=== PATIENT | female | born 1965 | race Caucasian/White ===

== ENCOUNTER 2019-11-18 13:25 | Outpatient (CLI) | payer OTHER, SELFPAY ==
[2019-11-18 14:13] LABS: Basophils # 0.1 10^3/uL (0.0-0.1); Basophils % 1.3 %; Eosinophils # 0.1 10^3/uL (0.0-0.8); Eosinophils % 1.4 %; Hematocrit 31.3 % (37.0-47.0); Hemoglobin 8.8 g/dL (11.5-15.3); Lymphocytes # 1.8 10^3/uL (0.8-4.8); Lymphocytes % 21.1 %; Mean Corpuscular HGB Conc 28.1 g/dL (30.0-36.0); Mean Corpuscular Hemoglobin 19.6 pg (28.0-34.0); Mean Corpuscular Volume 69.7 fL (81-99); Mean Platelet Volume 9.7 fL (7.4-10.4); Monocytes # 0.8 10^3/uL (0.2-0.9); Monocytes % 9.2 %; Neutrophils # 5.57 10^3/uL (1.8-7.7); Neutrophils % 66.6 %; Nucleated Red Blood Cells % 0 %; Platelet Count 324 10^3/cmm (130-400); Red Blood Count 4.49 10^6/uL (4.1-5.3); Red Cell Distribution Width 18.8 % (12.1-15.1); White Blood Count 8.4 10^3/uL (4.0-10.0)
--- NOTE | 2019-11-18 15:16 | ONC CON_ITS ---
Dr. John New Patient Note Patient: Sonya Barragan Unit #: [id number]: 1965 Dicatated By: Tera John M.D.Date of Visit: Nov 18, 2019 Onc MED New Patient/Consult Referring Physician: Henrik Stevens N.P. History of Present Illness: Ms. Sonya Barragan is a 54-year-old female with history of obesity, abdominal hernia, hemorrhoids was recently diagnosed with iron deficiency anemia, as per patient when she was at that time she was given oral iron for anemia which she could not tolerate due to indigestion, nausea vomiting, constipation abdominal cramps. But her anemia resolved and been never told until recently on October 16, 2019 when she went for routine 6 monthly follow-up with her PMD and routine lab work-up showed white blood count 8 hemoglobin 9.3 hematocrit 32.4, MCV 69, platelets 337,000 due to newly diagnosed anemia her PMD did anemia work-up which includes iron studies and B12/folic acid level and it came back ferritin was 8 iron saturation was 4%, iron 20, TIBC 460 consistent with iron deficiency but B12 was 645 and folic acid was 9.7. Patient was diagnosed with iron deficiency anemia as patient has intolerance to oral iron she was referred to hematology clinic for further evaluation treatment. As per patient she never had colonoscopy done but last year when she was admitted to hospital with intestinal obstruction due to hernia, she was seen by surgeon Dr. Guerra, at that time due to extensive hernia, colonoscopy was not considered and was suggested to send her to [place] for colonoscopy. Patient never required blood transfusion. Patient denies any melena or hematochezia but has history of hemorrhoids, with off and on bleeding last time was about a month ago. She has history of heavy menstrual periods and achieved menopause last year, patient is taking black cohosh as hormone supplement.. Patient denies any history of vaginal bleeding patient denies any history of hematuria denies any hemoptysis or hematemesis or nosebleed or gum bleed patient denies any history of peptic ulcer disease patient denies any history of gastric surgery. Patient denies any history of night sweats or weight loss or peripheral lymphadenopathy, patient denies any history of jaundice. Patient denies any history of palpitation or shortness of breath, patient has morbid obesity, so not very active physically. Past Medical History: Ms. Barragan's medical history consists of hyperlipidemia and hypertension. Past Surgical History: Ms. Barragan's surgical/procedural history consists of breast biopsy, caesarean section, and hernia repair. Medications: Black Cohosh 1 Tablet Oral daily, Docusate Calcium 1 Capsule (of 240 mg) Oral daily, Furosemide 1 Tablet (of 40 mg) Oral daily, Gabapentin 1 Capsule (of 300 mg) Oral t.i.d., Lisinopril 1 Tablet (of 10 mg) Oral daily, Meloxicam 1 Tablet (of 15 mg) Oral daily, metFORMIN HCl 1 Tablet (of 500 mg) Oral daily, Pantoprazole Sodium 1 Tablet (of 20 mg) Tablet, enteric coated Oral daily, Pravastatin Sodium 1 Tablet (of 10 mg) Oral daily Allergies: Codeine Sulfate and HYDROcodone-Acetaminophen. Social History: Ms. Barragan is . Ms. Barragan has never smoked. She has no history of drinking. Family History: Ms. Barragan's mother is alive: diabetic, and seizures, and multiple sclerosis. Ms. Barragan's father at age 70: myocardial infarction. Ms. Barragan has 1 sister who is : gastric bypass. Review Of Symptoms: Constitutional - Appetite is good and weight is stable. No fever, night sweats, or hot flashes. Energy level is poor, ENMT - No sinus congestion/drainage. No mouth sores. No sore throat or difficulty swallowing, Hematologic/Lymphatic - No abnormal bruising or bleeding, Respiratory - No shortness of breath. No cough. No pleuritic pain or hemoptysis, Cardiovascular - No angina pain. No palpitations, Gastrointestinal - No nausea or vomiting. No heartburn or acid reflux. No diarrhea. Positive for constipation. Positive for hemorrhoids, Genitourinary (F) - No dysuria or hematuria. No urinary frequency. No urgency or incontinence, Musculoskeletal - No joint or bone pain, Neurologic - No headache. Positive for dizziness. No numbness or tingling. No other focal neurologic symptoms, Psychiatric - No anxiety or depression. No insomnia. Vital Signs: Performed on Nov 18, 2019 14:30: 0, 61.55 (HIGH), 2.76 sq.m, 68.00 in, 96 %, 81 /min, 24 /min, 123/75 mm(hg), 99.4 F (HIGH), and 404.8 lbs (HIGH). Performance Status: 2 - Ambulatory/capable of all self-care, unable to perform any work activities. Up and about more than 50% of waking hours. (ECOG) Physical Examination: ENMT - No mouth sores, no thrush, no jaundice, Respiratory - Poor air entry otherwise clear, Cardiovascular - Regular rate and rhythm of heart, Abdomen - Soft, bowel sounds present, Extremities - 1+ edema bilaterally. Lab/Imaging: Most recent lab results are not available for this patient. Impression: Microcytic, hypochromic anemia due to severe iron deficiency, etiology chronic GI blood loss versus iron malabsorption, lab work-up done on October 23, 2019 showed white blood count 7.4, hemoglobin 8.9, hematocrit 29.9 platelets 322,000 white blood count 7.4 with MCV 70, iron saturation 4%, ferritin 8, iron 20, TIBC 460, all consistent with iron deficiency with normal B12 645, folate 9.7 History of anemia during , history of oral iron intolerance with severe GI symptoms Morbid obesity, Abdominal hernia Hemorrhoids Plan: Discussed with patient regarding her labs white blood count 8.4 hemoglobin 8.8 hematocrit 31.3 MCV 69.7 platelets 324,000 with a normal differential Clinically, patient is doing reasonably well with well compensated iron deficiency anemia, patient has morbid obesity causing limited mobility. And she has history of intolerance to oral iron with severe gastric symptoms including nausea vomiting, epigastric cramps and constipation. And would not consider oral iron, in that case , we will consider parenteral iron Injectafer 750 mg IV weekly x2, all the side effects possible benefits including but not limited to allergic reaction, headaches were mentioned further teaching will be done by nurse, will obtain approval from her insurance prior to the Injectafer infusion. As far as etiology of iron deficiency anemia is concerned, it could be either due to chronic blood loss from GI tract like hemorrhoids or peptic ulcer disease or GI malignancy or small bowel AVMs or other possibility could be iron malabsorption. As per patient possibility of colonoscopy was discussed last year during her admission for abdominal pain but due to extensive hernia, it was not considered rather planning was to refer her to [place] for colonoscopy. And case was discussed with Dr. Guerra today and he recommended patient being high risk, colonoscopy to be done in [place]. We will refer her to GI services in [place] for evaluation for EGD and colonoscopy for her severe iron deficiency anemia. And patient return to clinic 1 month after second dose of Injectafer with CBC and iron studies Signed By: Tera John M.D. <<Signature on File>>
== END 2019-11-18 13:26 | disposition home or self-care (01) ==
LOC: ONCMED 13:25
PROVIDERS: PCP Nurse Practitioner Family; Visit Provider Internal Medicine Hematology & Oncology
DX: D50.9 Iron deficiency anemia, unspecified (principal); K46.9 Unspecified abdominal hernia without obstruction or gangrene; K64.9 Unspecified hemorrhoids; E66.01 Morbid (severe) obesity due to excess calories
CPT/HCPCS: 85025; 99203

== ENCOUNTER 2019-12-02 06:17 | Outpatient (CLI) | payer OTHER, SELFPAY ==
[2019-12-02] MEDS: ferric carboxy (IVPB) 750 MG in sodium chloride 0.9% (100 ml) 100 ML 460 MG IV (08:30)
[2019-12-02] MEDS: sodium chloride 0.9% 250 ML 999 ML IV (08:30)
== END 2019-12-02 06:18 | disposition home or self-care (01) ==
LOC: ONCMED 06:18
PROVIDERS: PCP Nurse Practitioner Family; Visit Provider Internal Medicine Hematology & Oncology
DX: D50.9 Iron deficiency anemia, unspecified (principal)
CPT/HCPCS: 96365; J1439; J7050

== ENCOUNTER 2019-12-09 09:37 | Outpatient (CLI) | payer OTHER, SELFPAY ==
[2019-12-09] MEDS: ferric carboxy (IVPB) 750 MG in sodium chloride 0.9% (100 ml) 100 ML 345 MG IV (10:00)
== END 2019-12-09 09:38 | disposition home or self-care (01) ==
LOC: ONCMED 09:38
PROVIDERS: PCP Nurse Practitioner Family; Visit Provider Internal Medicine Hematology & Oncology
DX: D50.9 Iron deficiency anemia, unspecified (principal)
CPT/HCPCS: 96365; J1439

== ENCOUNTER 2020-01-18 07:55 | Outpatient (CLI) | payer OTHER, SELFPAY ==
[2020-01-18 08:32] LABS: Basophils # 0.1 10^3/uL (0.0-0.1); Basophils % 1.4 %; Eosinophils # 0.2 10^3/uL (0.0-0.8); Hematocrit 40.4 % (37.0-47.0); Hemoglobin 12.1 g/dL (11.5-15.3); Lymphocytes # 1.9 10^3/uL (0.8-4.8); Lymphocytes % 25.9 %; Mean Corpuscular Hemoglobin 23.8 pg (28.0-34.0); Mean Corpuscular Volume 79.4 fL (81-99); Mean Platelet Volume 9.3 fL (7.4-10.4); Monocytes # 0.7 10^3/uL (0.2-0.9); Neutrophils % 61.4 %; Nucleated Red Blood Cells % 0 %; Platelet Count 307 10^3/cmm (130-400); Red Blood Count 5.09 10^6/uL (4.1-5.3); Red Cell Distribution Width 24.9 % (12.1-15.1); White Blood Count 7.3 10^3/uL (4.0-10.0)
[2020-01-18 08:50] LABS: Ferritin 49 ng/mL (15-150); Iron 48 ug/dL (37-145); Percent Saturation 12.8 % (20-50); Total Iron Binding Capacity 373 mcg/dl; Unsaturated Iron Binding 325 ug/dL (112-347)
--- NOTE | 2020-01-18 11:28 | ONC FU_ITS ---
Dr. John follow up note Patient: Sonya Barragan Unit #: [id number]: 1965 Dicatated By: Tera John M.D.Date of Visit:Jan 18, 2020 Onc Med Follow-up/Prog Note History of Present Illness: Ms. Sonya Barragan is a 54-year-old female with history of obesity, abdominal hernia, hemorrhoids was recently diagnosed with iron deficiency anemia, as per patient when she was at that time she was given oral iron for anemia which she could not tolerate due to indigestion, nausea vomiting, constipation abdominal cramps. But her anemia resolved and been never told until recently on October 16, 2019 when she went for routine 6 monthly follow-up with her PMD and routine lab work-up showed white blood count 8 hemoglobin 9.3 hematocrit 32.4, MCV 69, platelets 337,000 due to newly diagnosed anemia her PMD did anemia work-up which includes iron studies and B12/folic acid level and it came back ferritin was 8 iron saturation was 4%, iron 20, TIBC 460 consistent with iron deficiency but B12 was 645 and folic acid was 9.7. Patient was diagnosed with iron deficiency anemia as patient has intolerance to oral iron she was referred to hematology clinic for further evaluation treatment. As per patient she never had colonoscopy done but last year when she was admitted to hospital with intestinal obstruction due to hernia, she was seen by surgeon Dr. Guerra, at that time due to extensive hernia, colonoscopy was not considered and was suggested to send her to [place] for colonoscopy. Patient never required blood transfusion. Patient denies any melena or hematochezia but has history of hemorrhoids, with off and on bleeding last time was about a month ago. She has history of heavy menstrual periods and achieved menopause last year, patient is taking black cohosh as hormone supplement.. Patient denies any history of vaginal bleeding patient denies any history of hematuria denies any hemoptysis or hematemesis or nosebleed or gum bleed patient denies any history of peptic ulcer disease patient denies any history of gastric surgery. Patient denies any history of night sweats or weight loss or peripheral lymphadenopathy, patient denies any history of jaundice. Patient denies any history of palpitation or shortness of breath, patient has morbid obesity, so not very active physically. Being high risk for EGD and colonoscopy patient was referred to [facility] in [place], where as per patient she underwent EGD on day before and it was normal, and report is not available to me at this point, colonoscopy was not done as patient is morbid obese, and history of recurrent intestinal obstruction due to herniation. Patient was given Injectafer on December 01 and December 09, 2023 severe iron deficiency anemia, she tolerated well with normalization of hemoglobin Came for follow-up, denies any specific complaints, no fever chills, no nausea or vomiting, no diarrhea or constipation, no melena or hematochezia as per patient her stool for occult bleeding was tested by PMD and it was negative. And she also underwent EGD on day before and no abnormality was seen biopsy was taken for; wheat intolerance', it was negative. Colonoscopy was not done because of being high risk due to recurrent intestinal obstruction due to intestinal hernia and morbid obesity., Overall feeling much better more energetic, tolerated parenteral iron well. Denies any fever chills denies any nausea or vomiting denies any jaundice denies any melena hematochezia or hemoptysis or hematemesis. Medications: Black Cohosh 1 Tablet Oral daily, Docusate Calcium 1 Capsule (of 240 mg) Oral daily, Furosemide 1 Tablet (of 40 mg) Oral daily, Gabapentin 1 Capsule (of 300 mg) Oral t.i.d., Lisinopril 1 Tablet (of 10 mg) Oral daily, Meloxicam 1 Tablet (of 15 mg) Oral daily, metFORMIN HCl 1 Tablet (of 500 mg) Oral daily, Pantoprazole Sodium 1 Tablet (of 20 mg) Tablet, enteric coated Oral daily, Pravastatin Sodium 1 Tablet (of 10 mg) Oral daily Allergies: Codeine Sulfate and HYDROcodone-Acetaminophen. Review of Systems: Review of Systems is not available for this patient. Vital Signs: Performed on Jan 18, 2020 10:28 Height - 68.00 in Weight - 411.2 lbs (HIGH) BSA - 2.78 sq.m BMI - 62.52 (HIGH) Temperature - 98.9 F (HIGH) Pulse - 91 /min Respiration - 26 /min BP - 144/69 mm(hg) (HIGH) O2 Sat - 98 % Pain - 0 Performance Status: 2 - Ambulatory/capable of all self-care, unable to perform any work activities. Up and about more than 50% of waking hours. (ECOG) Physical Examination: ENMT - No mouth sores, no thrush, no jaundice, Respiratory - Poor air entry otherwise clear, Cardiovascular - Regular rate and rhythm of heart, Abdomen - Soft, nontender, bowel sounds present, Extremities - Trace edema bilaterally. Lab/Imaging: Test performed on Jan 18, 2020 08:15 Ferritin 49 ng/mL Iron 48 mcg/dL Iron Binding Capacity (TIBC) 373 mcg/dl % Iron Saturation 12.8 % UIBC 325 mcg/dL WBC 7.3 10 3/uL RBC 5.09 10 6/uL HGB 12.1 g/dL HCT 40.4 % MCV 79.4 fL MCH 23.8 pg MCHC 30.0 g/dL RDW 24.9 % Platelet Count 307 10 3/cmm MPV 9.3 fL Neutrophils 4.50 10 3/uL Lymphocytes 1.9 10 3/uL Monocytes 0.7 10 3/uL Eosinophils 0.2 10 3/uL Basophils 0.1 10 3/uL Neutrophil % 61.4 % Lymphocyte % 25.9 % Monocyte % 9.0 % Eosinophil % 2.0 % Basophils % 1.4 % NRBC % 0 % Impression: Microcytic, hypochromic anemia due to severe iron deficiency, etiology chronic GI blood loss versus iron malabsorption, lab work-up done on October 23, 2019 showed white blood count 7.4, hemoglobin 8.9, hematocrit 29.9 platelets 322,000 white blood count 7.4 with MCV 70, iron saturation 4%, ferritin 8, iron 20, TIBC 460, all consistent with iron deficiency with normal B12 645, folate 9.7 History of anemia during , history of oral iron intolerance with severe GI symptoms Morbid obesity, Abdominal hernia Hemorrhoids Plan: Discussed with patient regarding her labs white blood count 7.3 hemoglobin 12.1 g compared to 8.8 g on November 18, 2019 prior to parenteral iron and hematocrit 40.4 platelets 307 MCV 79.4 compared to 69.7 prior to parenteral iron and her iron studies shows ferritin 49 compared to 8 prior to iron infusion and iron saturation 12.8% compared to 4% previously Clinically, patient is doing well, her follow-up labs shows significant improvement in fact normalization of her hemoglobin iron studies shows significant improvement in iron stores but iron saturation was still low and ferritin has improved now in normal range but on the lower side. At this point we will continue to monitor her labs she return to clinic in 1 month with CBC and iron studies We will also obtain EGD report and as far as colonoscopy is concerned, will have 2 options one would be virtual colonoscopy or barium enema. And virtual colonoscopy is available in [place] and [place] and patient said she has no transportation to go there. But she will talk to her and let us know when she return to clinic in a month with CBC and iron studies. Signed By: Tera John M.D. <<Signature on File>>
== END 2020-01-18 07:56 | disposition home or self-care (01) ==
LOC: ONCMED 07:57
PROVIDERS: PCP Nurse Practitioner Family; Visit Provider Internal Medicine Hematology & Oncology
DX: D50.9 Iron deficiency anemia, unspecified (principal); E66.01 Morbid (severe) obesity due to excess calories; K46.9 Unspecified abdominal hernia without obstruction or gangrene; K64.9 Unspecified hemorrhoids
CPT/HCPCS: 36415; 82728; 83540; 83550; 85025; G0463

== ENCOUNTER 2020-02-01 06:01 | Inpatient (IN) | payer OTHER, SELFPAY ==
[2020-02-01] VITALS (15 sets, daily range): BP systolic 113–142; BP diastolic 68–91; PULSE 94–102; RESP 15–24; TEMP 36.2–36.9; O2SAT 91–98; BMI 59.1
--- NOTE | 2020-02-01 06:26 | CTR_ITS ---
PROCEDURE INFORMATION: Exam: CT Angiography Chest With Contrast Exam date and time: 02/01/2020 6:31 AM Age: 54 years old Clinical indication: Pain; Other: Lower abd/pelvic; Other: SOB; Prior surgery; Surgery date: 6+ months; Surgery type: Hyst, ; Additional info: PT is 440 lbs, too large to catch all anatomy. Best images possible. TECHNIQUE: Imaging protocol: Computed tomographic angiography of the chest with intravenous contrast. 3D rendering (Not supervised by radiologist): MIP and/or 3D reconstructed images were created by the technologist. Radiation optimization: All CT scans at this facility use at least one of these dose optimization techniques: automated exposure control; mA and/or kV adjustment per patient size (includes targeted exams where dose is matched to clinical indication); or iterative reconstruction. Contrast material: OMNI 350; Contrast volume: 95 ml; Contrast route: INTRAVENOUS (IV); COMPARISON: No relevant prior studies available. RADIATION DOSE METRICS: Total DLP (mGy-cm): 2234.94 FINDINGS: Tubes, catheters and devices: Probable venous contrast mixing manifesting heterogeneity at the right atrium. Pulmonary arteries: Markedly limited examination secondary to patient body habitus. Inability to entirely assess pulmonary vasculature due to severely diminished contrast intensity within pulmonary arteries. No dominant expansile filling defect for the level of images acquired. Aorta: Unremarkable. No aortic aneurysm. No aortic dissection. Thyroid: Focal dominant 3.3 cm calcified nodule lower left thyroid. Lungs: Minor dependent atelectasis posterior lungs. Pleural space: Unremarkable. No pneumothorax. No pleural effusion. Heart: Normal right to left ventricular ratio. Lymph nodes: Unremarkable. No enlarged lymph nodes. Bones/joints: Degenerative change of the spine. Soft tissues: Unremarkable. Other findings: Motion degradation. IMPRESSION: 1. While there is no dominant intraluminal filling defect markedly limited assessment of pulmonary arteries by diminished contrast intensity. 2. Densely calcified left thyroid nodule.Recommend follow-up thyroid ultrasound. COMMENTS: Consistent with the [employer]'s Incidental Findings Committee white paper (J Am Ling Radiol 2015): In patients aged 35 years and older with an incidental thyroid nodule equal to or greater than 1.[address], MRI or extrathyroidal US, further evaluation with dedicated thyroid US is recommended for patients with normal life expectancy and without comorbidities. For smaller nodules without suspicious features, no further evaluation or follow up is recommended. PROCEDURE INFORMATION: Exam: CT Abdomen And Pelvis With Contrast Exam date and time: 02/01/2020 6:31 AM Age: 54 years old Clinical indication: Pain; Other: Lower abd/pelvic; Other: SOB; Prior surgery; Surgery date: 6+ months; Surgery type: Hyst, ; Additional info: PT is 440 lbs, too large to catch all anatomy. Best images possible. TECHNIQUE: Imaging protocol: Computed tomography of the abdomen and pelvis with intravenous contrast. Radiation optimization: All CT scans at this facility use at least one of these dose optimization techniques: automated exposure control; mA and/or kV adjustment per patient size (includes targeted exams where dose is matched to clinical indication); or iterative reconstruction. Contrast material: OMNI 350; Contrast volume: 95 ml; Contrast route: INTRAVENOUS (IV); COMPARISON: No relevant prior studies available. RADIATION DOSE METRICS: Total DLP (mGy-cm): 2234.94 FINDINGS: Liver: Fatty infiltration of the liver. Hepatomegaly. Longitudinal diameter of the liver 20.0 cm. Gallbladder and bile ducts: Cholelithiasis. Pancreas: Normal. No ductal dilation. Spleen: Normal. No splenomegaly. Adrenal glands: Normal. No mass. Kidneys and ureters: Normal. No hydronephrosis. Stomach and bowel: Large abdominal pannus and likely large herniation of bowel at the level of the pelvis. No significant bowel wall thickening. Mild mesenteric stranding and fluid containing small bowel segments. A portion of the margin of the abdominal pannus and bowel are not included in the field of view. Colonic diverticulosis. Appendix: The appendix is not definitely delineated. Intraperitoneal space: See Stomach and bowel finding. Vasculature: Unremarkable. No abdominal aortic aneurysm. Lymph nodes: Unremarkable. No enlarged lymph nodes. Urinary bladder: Unremarkable as visualized. Reproductive: Lobular contour of the uterus with a peripherally rounded calcification measuring 5.1 cm. Bones/joints: Degenerative change of the spine. Soft tissues: Markedly limited examination by motion and secondary to patient body habitus. Scattered radiopaque rounded mesh density material at the inner margin of the abdominal wall. There is likely insinuation of bowel within the abdominal wall partially insinuating below the mesh device partially displaced into the mesentery. No bowel wall thickening. Partial fluid expanded small-bowel segments contained within the hernia approaching 3.[address]/CT angio chest w abd pel w con IMPRESSION: 1. Hepatomegaly. 2. Cholelithiasis. 3. Large herniation of bowel with peritoneal defect at the lower abdominal pannus at the pelvic level containing numerous small bowel segments partially containing fluid-filled bowel with maximum diameter 3.6 cm with a appearance of transition of caliber. A component of ileus or enteritis could be a consideration. An element of partial or early mechanical obstruction would not be excluded based on bowel diameter and partial transition of caliber. While there is non dilatation of distal small bowel, a closed loop early obstruction would not be entirely excluded. Findings are limited in assessment with incomplete exclusion. Further follow-up or correlation for any obstructive symptoms are required. 4. Suspect calcified uterine fibroid formation. Radiation Dose CTDIVOL = (mGy): DLP = 2234.94~2234.94 (mGy-cm)
--- NOTE | 2020-02-01 06:26 | W.ED.ABDPA2 ---
HPI - Abdominal Pain General: Chief Complaint: Abdominal Pain Stated Complaint: ABD PAIN Time Seen by Provider: 02/01/20 06:18 History of Present Illness: HPI narrative: 54-year-old female presents to the emergency room with complaints of abdominal pain that began overnight. She said multiple bowel obstructions in the past and has a large hernia. She tried taking some different stool softeners and laxatives she not have a bowel movement since yesterday her pain is 10 of 10 she has had vomiting overnight denies any hematochezia melena hematemesis coffee-ground emesis she is not been able to vomit anymore mostly just has dry heaving. MD elicited complaint: abdominal pain Pertinent past history: other (History of bowel obstructions and previous and current hernias) Onset (ago): hour(s) Location: Diffuse (abdominal) Quality: aching Radiation: none Migration to: no migration Exacerbating factors: eating and vomiting Relieving factors: nothing Associated Symptoms: Reports anorexia, belching, bloating, change in bowel habits, chills, GI cramping, poor appetite and vomiting; Denies change in stool character, coffee ground emesis, constipation, diarrhea, dyspepsia, dysuria, excessive flatus, fever(s), heartburn, hematochezia, hematuria, hematemesis, fecal incontinence, loose stools, melena, nausea and syncope Review of Systems Const: Reports: chills; Denies: fever(s) ENMT: Denies: throat pain, ear or mastoid pain, nasal discharge or nasal congestion Card: Denies: syncope Resp: Denies: dyspnea, productive cough or non-productive cough GI: Reports: vomiting, bloating, GI cramping, belching and change in bowel habits; Denies: nausea, hematemesis, coffee ground emesis, heartburn, diarrhea, constipation, excessive flatus, fecal incontinence, change in stool character, hematochezia or melena : Denies: dysuria or hematuria Skin/Breast: Denies: rash or pruritus PFS ED PFSH: Medical History (Updated 02/01/20 @ 09:28 by Cameron Almendarez DO) Hernia SBO (small bowel obstruction) Physical Exam Const: COMMON NORMALS: no acute distress GENERAL APPEARANCE: cooperative and comfortable ORIENTATION/CONSCIOUSNESS: Yes awake, Yes oriented to person, Yes oriented to place and Yes oriented to time HENMT: COMMON NORMALS: normocephalic, atraumatic and hearing grossly normal bilaterally HEAD & SCALP: normocephalic and atraumatic Neck/C-Spine: COMMON NORMALS: no JVD Resp: COMMON NORMALS: normal respiratory effort, No retractions, No use of accessory muscles and clear to auscultation bilaterally AUSCULTATION: clear to auscultation bilaterally Cardio: COMMON NORMALS: no JVD, regular rate, regular rhythm and No murmurs present (Cardio) RATE: regular rate RHYTHM: regular rhythm GI: AUSCULTATION: Yes Absent bowel sounds PALPATION: Yes Tenderness to palpation present (GI), Yes Guarding due to palpation present (GI) and Yes Rigid due to palpation PERCUSSION: tympanic to percussion Extremity: COMMON NORMALS: normal to inspection, capillary refill normal, no clubbing, cyanosis or edema, no calf tenderness and no pedal edema Neuro: SENSORIUM/ORIENTATION: Yes oriented to person, Yes oriented to place and Yes oriented to time Skin: COMMON NORMALS: no rashes or lesions noted GENERAL SKIN EXAM: no rashes or lesions noted Course Vital Signs: Vital signs: Vital Signs Temperature 97.1 F L 02/01/20 06:18 Pulse Rate 95 02/01/20 06:50 Respiratory Rate 20 H 02/01/20 09:02 Blood Pressure 129/76 02/01/20 09:02 Pulse Oximetry 98 02/01/20 09:02 MDM - Abdominal Pain MDM Narrative: Medical decision making narrative: Discussed with radiologist from [facility] as well as with our own radiologist in-house and Dr. Klein and Mandy. The CT is concerning for pneumatosis is even a few areas we wonder about free air however due to her body habitus it is difficult to interpret because her some distortion of the images. Dr. Read was concerned about dilated loops of bowel and hernia which is down to the pannus. Additionally the she had raise concerns of pneumatosis. I discussed with Dr. Holly clinically the patient does appear to have a bowel obstruction and an acute abdomen asked that he see the patient and review the CT as well since our some findings on the CT that are indeterminant because of her body habitus. Will admit to the hospitalist place an NG and keep her n.p.o. already added Zosyn. Dr. Gross has been to the ER to see the patient. Lab Data: Labs: Lab Results 02/01/20 02/01/20 02/01/20 Range/Units 06:22 06:22 07:20 WBC 16.8 H (4.0-10.0) 10^3/ uL RBC 5.31 H (4.1-5.3) 10^6/u L Hgb 12.8 (11.5-15.3) g/dL Hct 42.1 (37.0-47.0) % MCV 79.3 L (81-99) fL MCH 24.1 L (28.0-34.0) pg MCHC 30.4 (30.0-36.0) g/dL RDW 22.5 H (12.1-15.1) % Plt Count 313 (130-400) 10^3/c mm MPV 9.5 (7.4-10.4) fL Neut % (Auto) 89.4 % Lymph % (Auto) 4.5 % Dunn % (Auto) 5.3 % Eos % (Auto) 0.0 % Baso % (Auto) 0.3 % Neut # (Auto) 15.04 H (1.8-7.7) 10^3/u L Lymph # (Auto) 0.8 (0.8-4.8) 10^3/u L Dunn # (Auto) 0.9 (0.2-0.9) 10^3/u L Eos # (Auto) 0.0 (0.0-0.8) 10^3/u L Baso # (Auto) 0.1 (0.0-0.1) 10^3/u L Nucleated RBC % (a uto) 0 % Nucleated RBCs # 0.0 /100WBC Sodium 138 (136-145) mmol/L Potassium 3.9 (3.5-5.1) mmol/L Chloride 101 (98-107) mmol/L Carbon Dioxide 25 (22-29) mmol/L Anion Gap 15.9 (5-19) BUN 14 (6-20) mg/dL Creatinine 0.6 (0.5-0.9) mg/dL GFR Calculation 104.2 (90-130) mL/min Glucose 160 H (65-115) mg/dL Calculated Osmolal ity 290 (285-295) mOsm/k g Lactic Acid 2.8 H (0.5-2.2) mmol/L Calcium 9.1 (8.5-10.5) mg/dL Total Bilirubin 0.3 (0.15-1.2) mg/dL AST 42 H (0-32) U/L ALT 71 H (0-33) U/L Alkaline Phosphata se 89 (35-105) IU/L Total Protein 7.9 (6.6-8.7) g/dL Albumin 4.3 (3.5-5.2) g/dL Globulin 3.6 (1.3-4.6) g/dL Lipase 33 (13-60) U/L Discharge Plan Discharge Patient Disposition: Admitted As Inpatient Admit Provider: Kleber Galvan Clinical Impression: Small bowel obstruction, Abdominal wall hernia, Pneumatosis of intestines Condition: Stable Coding Level of Care Code ED Pharmacy Technician Program Director for Chg Fwd Exam Comprehensive
[2020-02-01] MEDS: ondansetron 2 mg/ML SDV 2 mL 4 MG IVP ×2 (06:38→11:47)
[2020-02-01] MEDS: morphine 4 mg/mL SDV 1 mL IVP ×5 (06:39→11:38)
[2020-02-01] MEDS: sodium chloride 0.9% 1,000 ML 999 ML IV ×2 (06:41→10:29)
[2020-02-01 06:45] LABS: Basophils # 0.1 10^3/uL (0.0-0.1); Basophils % 0.3 %; Hematocrit 42.1 % (37.0-47.0); Hemoglobin 12.8 g/dL (11.5-15.3); Lymphocytes # 0.8 10^3/uL (0.8-4.8); Lymphocytes % 4.5 %; Mean Corpuscular HGB Conc 30.4 g/dL (30.0-36.0); Mean Corpuscular Hemoglobin 24.1 pg (28.0-34.0); Mean Corpuscular Volume 79.3 fL (81-99); Mean Platelet Volume 9.5 fL (7.4-10.4); Monocytes # 0.9 10^3/uL (0.2-0.9); Monocytes % 5.3 %; Neutrophils # 15.04 10^3/uL (1.8-7.7); Neutrophils % 89.4 %; Nucleated Red Blood Cells % 0 %; Platelet Count 313 10^3/cmm (130-400); Red Blood Count 5.31 10^6/uL (4.1-5.3); Red Cell Distribution Width 22.5 % (12.1-15.1); White Blood Count 16.8 10^3/uL (4.0-10.0)
--- NOTE | 2020-02-01 06:48 | PC.NURSE ---
Patient placed on 2 liters of oxygen via nasal cannula because oxygen dropped to 87% after morphine administration.
[2020-02-01 06:54] LABS: Alanine Aminotransferase 71 U/L (0-33); Albumin Level 4.3 g/dL (3.5-5.2); Alkaline Phosphatase 89 IU/L (35-105); Anion Gap 15.9 (5-19); Aspartate Amino Transferase 42 U/L (0-32); Blood Urea Nitrogen 14 mg/dL (6-20); Calcium 9.1 mg/dL (8.5-10.5); Carbon Dioxide 25 mmol/L (22-29); Chloride 101 mmol/L (98-107); Globulin 3.6 g/dL (1.3-4.6); Glomerular Filtration Rate 104.2 mL/min (90-130); Glucose 160 mg/dL (65-115); Lipase 33 U/L (13-60); Osmolality Calculated 290 mOsm/kg (285-295); Potassium 3.9 mmol/L (3.5-5.1); Sodium 138 mmol/L (136-145); Total Bilirubin 0.3 mg/dL (0.15-1.2); Total Protein 7.9 g/dL (6.6-8.7)
[2020-02-01] MEDS: iohexol 350 mg/mL 100 mL Btl IV (07:16)
[2020-02-01 07:43] LABS: Lactic Sepsis W/Reflex 2.8 mmol/L (0.5-2.2)
[2020-02-01] MEDS: piperacillin-tazobactam 3.375 GM in sodium chloride 0.9% (plus) 50 ML IV (07:46)
--- NOTE | 2020-02-01 08:42 | ECG_ITS ---
[facility] Test Date: 2020-02-01 Pat Name: Sonya Barragan Department: Room: 276 Gender: Female Palaeontologist: : 1965 Requested By: Cameron Palencia Order Number: [id number] Gilbert MD: Kadie Gerardo M.D. Measurements Intervals [place] Rate: 96 P: 53 LA: 181 QRS: -20 QRSD: 96 T: 40 QT: 362 QTc: 459 Interpretive Statements SINUS RHYTHM No previous ECG available for comparison Electronically Signed On 02-01-2020 20:29:30 SHREDDER OPERATOR by Kadie Gerardo M.D. [id number]
[2020-02-01 09:11] LABS: Reflex Lactate Order REFLEX LACTIC ORDERD
[2020-02-01 09:51] LABS: Troponin(5th) Baseline 6 ng/L (0-10)
--- NOTE | 2020-02-01 10:18 | XRR_ITS ---
PROCEDURE INFORMATION: Exam: Portable abdominal radiograph Exam date and time: 02/01/2020 10:54 AM Age: 54 years old Clinical indication: Device placement; Ng tube; Additional info: Ng tube placement verification TECHNIQUE: Imaging protocol: Portable abdominal radiograph COMPARISON: CT angio chest w abd pel w con 02/01/2020 6:53 AM FINDINGS: Evaluation is limited due to patient body habitus. Tubes, catheters and devices: Termination of feeding tube in the gastric body. Bones/joints: Degenerative change. XR/XR chest 1V 95128 IMPRESSION: Termination of feeding tube in the gastric body.
--- NOTE | 2020-02-01 10:42 | ECG_ITS ---
[facility] Test Date: 2020-02-01 Pat Name: Sonya Barragan Department: Room: 276 Gender: Female C Python Developer: : 1965 Requested By: Cameron Palencia Order Number: [id number] Hunt MD: Kadie Gerardo M.D. Measurements Intervals [place] Rate: 97 P: 46 CO: 179 QRS: -12 QRSD: 99 T: 29 QT: 354 QTc: 450 Interpretive Statements SINUS RHYTHM Compared to ECG 02/01/2020 08:50:23 No significant changes Electronically Signed On 02-01-2020 20:54:08 IT COMMUNICATIONS MANAGER by Kadie Gerardo M.D. [id number]
[2020-02-01] MEDS: D5-NS 0.45% + KCL 20 mEq 20 MEQ/1,000 ML BAG 100 MEQ IV (11:39)
[2020-02-01 11:54] LABS: Troponin 5 2HR Delta 0 ABS# (0-10)
--- NOTE | 2020-02-01 12:26 | P.CONIM_ITS ---
Providers/Reason For Consult Consulting Physican/Specialty*: General Surgery Cayetano Klein MD Reason for Consult*: Abdominal pain, recurrent ventral hernia. Attending Physician: Kleber Galvan MD Primary Care Provider: Henrik Stevens NP History of Present Illness History of Present Illness Sonya Barragan is a 54 year old female with a known history of recurrent ventral hernias who apparently was in her usual state of health until last night when she developed more firmness and pain on the left side of her abdomen. She is a morbidly obese patient who has been in the hospital multiple times for abdominal pain/recurrent ventral hernias. She has been felt to be too high risk for surgery in light of her severe obesity and she continues to gain weight. She has been counseled by Dr. Guerra regarding a gastric sleeve but she has no interest in that. She says she did have a normal bowel movement yesterday morning but then used an enema last night in an attempt to have another bowel movement in case that was her problem; she only had a small bowel movement afterwards. She has not been aware of any flatus that she has passed since yesterday morning. She denies any fevers or chills. She came to the emergency room and a CAT scan was somewhat equivocal given her size, but there were some concerns of possible pneumatosis intestinalis/possible early bowel obstruction. Review of Systems General: Reports: 10 or more systems reviewed and unremarkable except in HPI and below Const: Denies: fever(s) GI: Reports: abdominal pain, nausea and vomiting Meds/Allergies Home Medications and Allergies Home Medications Medication Instructions Recorded Confirmed Last Taken Type albuterol sulfate 1 - 2 puff INHALATION QID PRN 02/01/20 02/01/20 Unknown History cholecalciferol (vitamin D3) 1,250 mcg PO Q7D 02/01/20 02/01/20 01/25/20 History docusate sodium [Stool Softener] 100 mg PO BID@02/01/20 02/01/20 01/31/20 History fenofibrate 54 mg PO DAILY@18 02/01/20 02/01/20 01/31/20 History furosemide 40 mg PO DAILY@18 02/01/20 02/01/20 01/31/20 History gabapentin 300 mg PO TID@,02/01/20 02/01/20 01/31/20 History lisinopril 10 mg PO DAILY@18 02/01/20 02/01/20 01/31/20 History meloxicam 15 mg PO DAILY@02/01/20 02/01/20 01/31/20 History metformin 500 mg PO DAILY@18 02/01/20 02/01/20 01/31/20 History methylcellulose (laxative) [Fiber 500 mg PO DAILY@02/01/20 02/01/20 01/31/20 History Therapy Laxative] pantoprazole 20 mg PO DAILY@02/01/20 02/01/20 01/31/20 History pravastatin 10 mg PO DAILY@18 02/01/20 02/01/20 01/31/20 History Allergies Allergy/AdvReac Type Severity Reaction Status Date / Time codeine Allergy ALGY-Hives Verified 02/01/20 06:18 Current Medications Current Medications Generic Name Dose Route Start Last Admin Trade Name Freq PRN Reason Stop Dose Admin Potassium Chloride/Dextrose/Sod Cl 20 meq in 1,000 mls @ 100 mls/hr 02/01/20 11:16 02/01/20 11:39 D5-Ns 0.45% + Kcl 20 Meq IV 100 mls/hr .Q10H JUSTYN Administration Morphine Sulfate 4 mg 02/01/20 11:16 02/01/20 11:38 Morphine 4 Mg/Ml Sdv 1 Ml IVP 4 mg Q4H PRN Administration SEVERE PAIN Ondansetron HCl 4 mg 02/01/20 11:16 02/01/20 11:47 Ondansetron 2 Mg/Ml Sdv 2 Ml IVP 4 mg Q6H PRN Administration NAUSEA AND VOMITING PFSH Acute PFSH: Medical History (Updated 02/01/20 @ 12:56 by Cayetano Klein MD) Anemia Arthritis Chronic back pain Diabetes mellitus Hernia SBO (small bowel obstruction) Sinusitis Surgical History (Updated 02/01/20 @ 12:26 by Cayetano Klein MD) History of 2 sections History of breast biopsy History of ventral hernia repair Multiple Mass of soft tissue of forearm Benign -- excised 2014 Status post carpal tunnel release of both wrists Family History (Updated 02/01/20 @ 12:53 by Kleber Galvan MD) Other CAD (coronary artery disease) Social History Smoking and tobacco status: never smoked Alcohol intake: never Vitals/I&O/Wt Last Vital Signs Temp 98.4 F 02/01/20 11:00 Pulse 97 02/01/20 11:00 Resp 16 02/01/20 11:38 BP 142/77 02/01/20 11:00 Pulse Ox 95 02/01/20 11:38 01/31/20 02/01/20 02/01/20 22:59 06:59 14:59 Intake Total 1050 / 1050 Balance 1050 / 1050 Weight last 48 hrs Weight 400 lb Physical Exam Narrative: EXAM NARRATIVE: The patient was examined in her hospital room. She has a nasogastric tube in place with minimal brown fluid in the canister. She does not appear to be in any acute distress. The pupils are equal. No carotid bruits are heard. The lungs are clear anteriorly. The heart is regular. The abdomen is severely/morbidly obese. Bowel sounds are present but seem hypoactive. She has a large pannus which is very firm and tender on the left side inferiorly. She has no overlying skin changes other than surgical scars in the middle of her abdomen. The extremities reveal some mild edema. Neurologically the patient appears to be grossly intact. Data Imaging^: CT Abd/Pel: Radiologist's impression: CT chest/abdomen/pelvis 02/01/2020 IMPRESSION: 1. Hepatomegaly. 2. Cholelithiasis. 3. Large herniation of bowel with peritoneal defect at the lower abdominal pannus at the pelvic level containing numerous small bowel segments partially containing fluid-filled bowel with maximum diameter 3.6 cm with a appearance of transition of caliber. A component of ileus or enteritis could be a consideration. An element of partial or early mechanical obstruction would not be excluded based on bowel diameter and partial transition of caliber. While there is non dilatation of distal small bowel, a closed loop early obstruction would not be entirely excluded. Findings are limited in assessment with incomplete exclusion. Further follow-up or correlation for any obstructive symptoms are required. 4. Suspect calcified uterine fibroid formation. A&P Assessment and plan (1) Recurrent incisional hernia: CT reviewed. The patient clearly has a least 1 recurrent ventral hernia in the lower abdomen with intestinal contents that extended in the dependent portion of her pannus. I am not sure that I can see any obvious evidence of pneumatosis. Despite this, I am very concerned that the patient has introduced more intestine into her lower abdominal hernia. She has a lot of tenderness in this region. She is a very high risk surgical candidate, but I told her I am not sure that we have much choice unless we want to continue to watch this and accept an outcome which I think is going to be bad. She says her abdomen is more skinny different than it has been in the past. We discussed surgical risks of bleeding, infection, recurrent hernias, anesthesia complications, , etc. I made her aware that if we can get her hernia reduced and repaired, I would even consider possibly doing a partial panniculectomy if she is stable. She would like to proceed with surgery today, but understands we really do not have much choice at this point. Status: Acute Consult Attestations Medical Necessity Statement: See admitting service's notation. Coding Level of Care Code Acute Airline Station Agent for Natasha Bell Diagnoses Recurrent incisional hernia K43.2
--- NOTE | 2020-02-01 12:50 | P.HP_ITS ---
Providers/Chief Complaint Admitting Physician: Kleber Galvan MD Primary Care Provider: Henrik Stevens NP Chief Complaint: ABD PAIN History of Present Illness Sonya Barragan is a 54 year old female who presents to the emergency department with complaints of abdominal pain and vomiting. Patient relates this started around 1 PM yesterday. She reports she has vomited multiple times. There is been no blood in her emesis. She has had no diarrhea. She did have a bowel movement last night after an enema. She has not had any since. No fevers, history of Covid, or exposure to Covid. She does report some increased swelling in her lower extremities lately. She is not short of breath and has had no chest pain. She denies any history of coronary disease. She reports she sometimes gets nauseated with anesthesia but no other anesthesia related complications and no history of bleeding disorder. Review of Systems General: Reports: 10 or more systems reviewed and unremarkable except in HPI and below Const: Denies: fever(s) Eyes: Denies: change in vision ENMT: Denies: throat pain Card: Denies: chest pain Resp: Denies: dyspnea GI: Reports: abdominal pain, nausea and vomiting : Denies: flank pain Musc: Denies: neck pain Skin/Breast: Denies: rash Neuro: Denies: headache(s) Psych: Denies: anxiety Endo: Denies: polyuria Konstantin/Lymph: Denies: easy bruising All/Imm: Denies: urticaria Medications/Allergies Home Medications Medication Instructions Recorded Confirmed Last Taken Type albuterol sulfate 1 - 2 puff INHALATION QID PRN 02/01/20 02/01/20 Unknown History cholecalciferol (vitamin D3) 1,250 mcg PO Q7D 02/01/20 02/01/20 01/25/20 History docusate sodium [Stool Softener] 100 mg PO BID@02/01/20 02/01/20 01/31/20 History fenofibrate 54 mg PO DAILY@02/01/20 02/01/20 01/31/20 History furosemide 40 mg PO DAILY@18 02/01/20 02/01/20 01/31/20 History gabapentin 300 mg PO TID@04,,02/01/20 02/01/20 01/31/20 History lisinopril 10 mg PO DAILY@18 02/01/20 02/01/20 01/31/20 History meloxicam 15 mg PO DAILY@04 02/01/20 02/01/20 01/31/20 History metformin 500 mg PO DAILY@18 02/01/20 02/01/20 01/31/20 History methylcellulose (laxative) [Fiber 500 mg PO DAILY@04 02/01/20 02/01/20 01/31/20 History Therapy Laxative] pantoprazole 20 mg PO DAILY@04 02/01/20 02/01/20 01/31/20 History pravastatin 10 mg PO DAILY@18 02/01/20 02/01/20 01/31/20 History Allergies Allergy/AdvReac Type Severity Reaction Status Date / Time codeine Allergy ALGY-Hives Verified 02/01/20 06:18 PFSH Acute PFSH: Medical History (Updated 02/01/20 @ 13:10 by Kleber Galvan MD) Anemia Arthritis Chronic back pain Diabetes mellitus Hernia History of DVT (deep vein thrombosis) SBO (small bowel obstruction) Sinusitis Surgical History History of 2 sections History of breast biopsy History of ventral hernia repair Multiple Mass of soft tissue of forearm Benign -- excised 2014 Status post carpal tunnel release of both wrists Family History (Updated 02/01/20 @ 12:53 by Kleber Galvan MD) Other CAD (coronary artery disease) Social History (Updated 02/01/20 @ 12:53 by Kleber Galvan MD) Smoking and tobacco status: never smoked Alcohol intake: never Vitals/I&O/Wt Last Vital Signs Temp 98.4 F 02/01/20 11:00 Pulse 97 02/01/20 11:00 Resp 16 02/01/20 11:38 BP 142/77 02/01/20 11:00 Pulse Ox 95 02/01/20 11:38 01/31/20 02/01/20 02/01/20 22:59 06:59 14:59 Intake Total 1050 / 1050 Balance 1050 / 1050 Weight last 48 hrs Weight 181.437 kg Physical Exam Narrative: EXAM NARRATIVE: General exam is a conversant white female, in apparent abdominal discomfort HEENT: Pupils equally round. Oropharynx clear. Neck is supple no lymphadenopathy or thyromegaly Cardiovascular regular rate and rhythm without murmur, no S3 or S4 Lungs clear but with diminished breath sounds bilaterally. No wheezes or crackles Abdomen is large, firm. She has tenderness with any palpation. Cannot estimate organomegaly. was deferred Extremities no cyanosis clubbing. Perhaps trace edema. Skin no rash Neuro no obvious focal deficits. Data : 02/01/20 06:22 02/01/20 06:22 Other data: LFTs demonstrate slightly elevated AST and ALT of 42 and 71. Albumin is 4.3. Lipase is normal. Urinalysis yet to be obtained. Lactic acid elevated to 2.8. Chest x-ray no pulmonary infiltrate. CT abdomen and pelvis cholelithiasis, hepatomegaly, large herniation with numerous air-fluid levels CT chest demonstrated calcified left thyroid nodule, recommend outpatient thyroid ultrasound. EKG demonstrates normal sinus rhythm, left axis deviation, no acute changes. Troponin is normal A&P Assessment and plan (1) Small bowel obstruction: Admission N.p.o. Surgery been consulted I have directly visited with the certified surgical technician and he plans to take her to the OR for exploration, possible reduction of hernia Status: Acute (2) Recurrent incisional hernia: See above Status: Acute (3) Leukocytosis: Start Zosyn Close follow-up after surgery Check urinalysis Status: Acute (4) Diabetes mellitus: Sliding scale insulin Status: Acute (5) Anemia: Follow hemoglobin closely Patient reports recent EGD, [place] with no cause of anemia discovered. Status: Acute Additional A&P Information Full code No direct contraindications to surgery. SCDs for DVT prophylaxis as low possible surgery Attestations Medical Necessity Statement*: Will need greater than 2 midnight stay for evaluation and treatment of small bowel obstruction Time Spent in Patient Care: Greater than 35 minutes Coding Level of Care Code Acute Stone Gang Sawyer for [facility] Fwd Diagnoses Small bowel obstruction K56.609 Recurrent incisional hernia K43.2 Leukocytosis D72.829 Diabetes mellitus E11.9 Anemia D64.9
[2020-02-01 13:12] LABS: Troponin 5 6HR Delta 0 ng/L (0-12)
[2020-02-01 14:09] LABS: Urine Appearance Hazy (CLEAR); Urine Color Yellow (Yellow)
[2020-02-01 14:10] LABS: Add Urine Microscopic? YES; Bilirubin Urine Neg (Negative); Blood Urine Neg (Negative); Glucose Urine UA Norm (Normal); Ketones Urine Negative (Negative); Leukocyte Esterase Urine Negative (Negative); Nitrate Urine Negative (Negative); Protein Urine Neg (Negative); Specific Gravity, Urine 1.015 (1.005-1.030); Urobilinogen Urine Norm (Negative); pH Urine 5 (5-7)
[2020-02-01 14:23] LABS: Add Urine Culture? No; Bacteria Urine TRACE /hpf; RBC Urine 0-4 /hpf (0-2); Squamous Epithelial Cell Urine 15-25 /hpf (0-5); Transitional Epi Cells Urine 0-4 /hpf
--- NOTE | 2020-02-01 14:42 | ECG_ITS ---
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 Measurements Intervals [place] Rate: 101 P: 53 [place]: 180 QRS: -14 QRSD: 95 T: 39 QT: 333 QTc: 432 Interpretive Statements SINUS TACHYCARDIA NONSPECIFIC T-WAVE ABNORMALITY ABNORMAL RHYTHM ECG Compared to ECG 02/01/2020 11:55:25 T-wave abnormality now present Sinus rhythm no longer present Electronically Signed On 02-01-2020 20:51:26 FOREST PRODUCTS GATHERER by Kadie Gerardo M.D. [id number]
[2020-02-01] MEDS: famotidine 20 mg/2 mL INJ IVP (15:28)
[2020-02-01] MEDS: morphine 4 mg/mL SDV 1 mL 2 MG IVP (15:28)
[2020-02-01] MEDS: sodium chloride 0.9% 1,000 ML 100 ML IV (15:33)
[2020-02-01 16:57] LABS: Glucose Point of Care 139 mg/dL (70-110)
--- NOTE | 2020-02-01 18:08 | PC.NURSE ---
Patient to surgery at this time.
--- NOTE | 2020-02-01 18:45 | PC.NURSE ---
Patient's - Isra notified that patient did go to surgery at about 6 pm.
--- NOTE | 2020-02-01 19:17 | PC.NURSE ---
Report to Naye MARCH at this time.
[2020-02-01] MEDS: diphenhydrAMINE 50 mg/mL SDV 1mL 12.5 MG IVP (19:54)
--- NOTE | 2020-02-01 19:57 | ANES.PREANE2 ---
Pre-Anesthetic Assessment Pre-Anesthetic Assessment: Height/Weight: Height 1.75 m Weight 181.437 kg Temp Pulse Resp BP Pulse Ox 97.5 F L 96 15 113/68 95 02/01/20 16:00 02/01/20 16:00 02/01/20 16:00 02/01/20 16:00 02/01/20 16:00 Proposed Procedure: Operation Date: 02/01/20 17:30 Proposed Procedures p Ventral Hernia Repair (Open) possible panniculectomy(Not Applicable) - Cayetano Klein MD Was Beta Jordyn taken within 24 hours: N/A Social: Social History: No alcohol and No tobacco Exam: Pre-Anes Outpt Exam: alert, oriented x 3, clear to auscultation bilaterally and regular rate & rhythm Airway: Submandibular: WNL Cervical ROM: WNL MP: 2 Dentition: Full Pulmonary: Pulmonary: None reported CV/HEM: CV/HEM: HTN Hepatic: Hepatic: None reported GI: GI: GERD Comments: Bowel obstruction, hernia?incarcerated Metabolic: Metabolic: DM and Morbid obesity Musc/skel: Musc/skel: None reported Neuropsych: Neuropsych: None reported Anesthetic Plan: ASA status: 4 Anesthesia: General Other: RSI Meds/Allergies Current Medications: Current Medications Generic Name Dose Route Start Last Admin Trade Name Freq PRN Reason Stop Dose Admin Famotidine 20 mg 02/01/20 13:30 02/01/20 15:28 Famotidine 20 Mg /2 Ml Inj IVP 20 mg Q12H JUSTYN Administration Sodium Chloride 1,000 mls @ 100 m ls/hr 02/01/20 13:15 02/01/20 15:33 Sodium Chloride 0.9% IV 100 mls/hr .Q10H JUSTYN Administration Insulin Aspart 0 unit 02/01/20 18:00 02/01/20 17:13 Insulin Aspart 1 00 Unit/1 Ml SUBCUT Not Given WM&BEDTIME JUSTYN Protocol Morphine Sulfate 2 mg 02/01/20 13:07 02/01/20 15:28 Morphine 4 Mg/Ml Sdv 1 Ml IVP 2 mg Q4H PRN Administration SEVERE PAIN Ondansetron HCl 4 mg 02/01/20 11:16 02/01/20 11:47 Ondansetron 2 Mg /Ml Sdv 2 Ml IVP 4 mg Q6H PRN Administration NAUSEA AND VOMITI NG PFSH Anesthesia PFSH: Medical History (Updated 02/01/20 @ 13:10 by Kleber Galvan MD) Anemia Arthritis Chronic back pain Diabetes mellitus Hernia History of DVT (deep vein thrombosis) SBO (small bowel obstruction) Sinusitis Surgical History History of 2 sections History of breast biopsy History of ventral hernia repair Multiple Mass of soft tissue of forearm Benign -- excised 2014 Status post carpal tunnel release of both wrists Family History (Updated 02/01/20 @ 12:53 by Kleber Galvan MD) Other CAD (coronary artery disease) Social History (Updated 02/01/20 @ 12:53 by Kleber Galvan MD) Smoking and tobacco status: never smoked Alcohol intake: never Data Anesthesia CBC & Chem 7: 02/01/20 06:22 02/01/20 06:22 Other Labs: Laboratory Results - last 48 hr 02/01/20 02/01/20 02/01/20 06:22 06:22 06:22 WBC 16.8 H RBC 5.31 H Hgb 12.8 Hct 42.1 MCV 79.3 L MCH 24.1 L MCHC 30.4 RDW 22.5 H Plt Count 313 MPV 9.5 Neut % (Auto) 89.4 Lymph % (Auto) 4.5 [place] % (Auto) 5.3 Eos % (Auto) 0.0 Baso % (Auto) 0.3 Neut # (Auto) 15.04 H Lymph # (Auto) 0.8 [place] # (Auto) 0.9 Eos # (Auto) 0.0 Baso # (Auto) 0.1 Nucleated RBC % (auto) 0 Nucleated RBCs # 0.0 Sodium 138 Potassium 3.9 Chloride 101 Carbon Dioxide 25 Anion Gap 15.9 BUN 14 Creatinine 0.6 GFR Calculation 104.2 Glucose 160 H POC Glucose Calculated Osmolality 290 Lactic Acid Lactic Acid (Sepsis) Calcium 9.1 Total Bilirubin 0.3 AST 42 H ALT 71 H Alkaline Phosphatase 89 Troponin T Baseline 6 Troponin T 120 Minute Delta Troponin T Troponin T Hi Sens 6Hr Troponin T Hi Sens 6Hr Delta Total Protein 7.9 Albumin 4.3 Globulin 3.6 Lipase 33 Urine Color Urine Appearance Urine pH Ur Specific Pierron Urine Protein Urine Glucose (UA) Urine Ketones Urine Blood Urine Nitrate Urine Bilirubin Urine Urobilinogen Ur Leukocyte Esterase Urine RBC Urine WBC Ur Squamous Epith Cells Ur Transition Epith Cell Amorphous Sediment Urine Bacteria 02/01/20 02/01/20 02/01/20 07:20 10:27 10:27 WBC RBC Hgb Hct MCV MCH MCHC RDW Plt Count MPV Neut % (Auto) Lymph % (Auto) [place] % (Auto) Eos % (Auto) Baso % (Auto) Neut # (Auto) Lymph # (Auto) [place] # (Auto) Eos # (Auto) Baso # (Auto) Nucleated RBC % (auto) Nucleated RBCs # Sodium Potassium Chloride Carbon Dioxide Anion Gap BUN Creatinine GFR Calculation Glucose POC Glucose Calculated Osmolality Lactic Acid 2.8 H Lactic Acid (Sepsis) 2.0 Calcium Total Bilirubin AST ALT Alkaline Phosphatase Troponin T Baseline Troponin T 120 Minute 6.00 Delta Troponin T 0 Troponin T Hi Sens 6Hr Troponin T Hi Sens 6Hr Delta Total Protein Albumin Globulin Lipase Urine Color Urine Appearance Urine pH Ur Specific [place] Urine Protein Urine Glucose (UA) Urine Ketones Urine Blood Urine Nitrate Urine Bilirubin Urine Urobilinogen Ur Leukocyte Esterase Urine RBC Urine WBC Ur Squamous Epith Cells Ur Transition Epith Cell Amorphous Sediment Urine Bacteria 02/01/20 02/01/20 02/01/20 12:48 13:05 16:45 WBC RBC Hgb Hct MCV MCH MCHC RDW Plt Count MPV Neut % (Auto) Lymph % (Auto) [place] % (Auto) Eos % (Auto) Baso % (Auto) Neut # (Auto) Lymph # (Auto) [place] # (Auto) Eos # (Auto) Baso # (Auto) Nucleated RBC % (auto) Nucleated RBCs # Sodium Potassium Chloride Carbon Dioxide Anion Gap BUN Creatinine GFR Calculation Glucose POC Glucose 139 H Calculated Osmolality Lactic Acid Lactic Acid (Sepsis) Calcium Total Bilirubin AST ALT Alkaline Phosphatase Troponin T Baseline Troponin T 120 Minute Delta Troponin T Troponin T Hi Sens 6Hr 6.00 Troponin T Hi Sens 6Hr Delta 0 Total Protein Albumin Globulin Lipase Urine Color Yellow Urine Appearance Hazy A Urine pH 5 Ur Specific [place] 1.015 Urine Protein Neg Urine Glucose (UA) Norm Urine Ketones Negative Urine Blood Neg Urine Nitrate Negative Urine Bilirubin Neg Urine Urobilinogen Norm Ur Leukocyte Esterase Negative Urine RBC 0-4 H Urine WBC None Ur Squamous Epith Cells 15-25 H Ur Transition Epith Cell 0-4 Amorphous Sediment Not Reportable Urine Bacteria Trace Cardiac Studies: No Data to Display
[2020-02-01] MEDS: metroNIDAZOLE IV 500 MG/100 ML PREMIX 100 MG IV (22:15)
--- NOTE | 2020-02-01 23:20 | SUR.OPER ---
see anesthesia record
[2020-02-02] VITALS (131 sets, daily range): BP systolic 80–115; BP diastolic 44–82; PULSE 84–124; RESP 12–27; TEMP 37.7–38.4; O2SAT 93–100
--- NOTE | 2020-02-02 01:54 | PM.OP ---
Operative Report Date of procedure: February 02, 2020 Pre-op Diagnosis: Recurrent incarcerated ventral hernias. Post-op diagnosis: same (with small bowel necrosis) Procedure Done: Exploratory laparotomy with segmental small bowel resection, repair of recurrent incarcerated ventral hernias with mesh, partial panniculectomy. Implants: 7.0 x 5.4 inch Ventrio mesh Specimens removed/disposition: 1. Segmental small bowel resection. Surgeon: Cayetano Klein Anesthesia: General Estimated blood loss (mL): 150 Complications: None. Condition: stable Disposition: ICU Procedure: The patient was brought to the operating room and was placed in a supine position on the operating room table. General endotracheal anesthesia was induced. A Kuo catheter was inserted. The abdomen was prepped and draped in a sterile fashion. A transverse incision was carried out above the level of the umbilicus, curving slightly inferiorly on either end towards the lateral aspect of the abdomen. Cautery was used to divide the subcutaneous tissue down to the fascial wall and the patient was found to have 2 sizable hernia sacs coming from 2 separate defects by a fascial bridge in the midline of the abdomen. Dissection was carried out inferiorly so that the skin/subcutaneous tissue was eventually taken off of the top of the fascia for several inches inferior to the edge of the hernia defects. Attention was first directed to the right side. The hernia sac was carefully dissected out of the defect and was eventually excised. The patient had some intimately associated loops of small bowel in the sac with some omental and mesenteric adhesions resulting in several areas of partial stricturing which appeared chronic. The hernia sac was eventually completely excised but in freeing the bowel a mesenteric window was created inadvertently, partially devascularizing some of the small bowel but in the same area where the strictures were present. Adhesions were freed from the inside of the hernia defect which measured perhaps 4-5 inches in diameter. It was found that the patient had a piece of mesh that laid just superiorly in the peritoneal cavity against the abdominal wall and adhesions were removed from that, as well. The small bowel was reduced through the defect and was temporarily held in a reduced position with some moist lap sponges. Attention was then directed to the left side where the patient had another hernia sac and upon freeing this it was seen that the contents very laterally on the left side were very dark in color. Again, the hernia sac was opened and it was found that the patient had a necrotic segment of small bowel. It was obvious that this was going to need to be resected. The hernia sac was completely excised, revealing another defect measuring 4 to 5 inches in diameter. The bowel was divided on the proximal end where it was healthy with a VENKATA 55 stapler. In running the bowel distally it was found that the previous area of small bowel involved with the stricturing and the inadvertently created mesenteric window was a short distance distally and so it was elected to resect the entire length of small bowel instead of creating 2 anastomotic sites. This did entail removing perhaps 50 cm of fairly normal-looking small bowel in the center. The small bowel was moved from the left-sided defect out through the right sided defect for the resection. The VENKATA 55 stapler was fired on the terminal ileum and then the intervening mesentery was divided with the [employer] energy device. The peritoneal cavity and subcutaneous areas were extensively irrigated as best as could be done. The 2 limbs of small bowel were then approximated to each other with several stay sutures of 3-0 Vicryl. An opening was made on either and with cautery and an arm of a VENKATA 55 stapler was passed down either limb and was fired, creating a common opening between the 2 limbs. The staple lines were transposed and the common opening on the end was closed with a another VENKATA 55 stapler. Some stay sutures of 3-0 Vicryl were placed at the proximal end of the staple line to take any tension off of the anastomosis. The mesenteric window was then closed using a running suture of 3-0 Vicryl. All of the small bowel was returned to the abdomen and an extensive round of irrigation was once again carried out. While there was a little laxity of the fascial layer, it was clear that the patient was going to need mesh in her repair despite the fact that I would have liked to avoid it given the incarcerated necrotic contents on the left side. A 7 x 5.4 inch piece of Ventrio mesh was situated transversely underneath the fascial bridge and was sewn in place with multiple interrupted sutures of #1 Prolene to the fascial edges of the hernia defects on either side. Some running sutures of 0 Prolene were then used to go completely around each defect on either side. This seemed to do a very good job of creating a tension free repair. The Pitanguy demarcator was then used to estimate how much of the inferior skin/subcutaneous flap could be removed in the process of a partial panniculectomy. A scalpel was used to incise the excess skin and the subcutaneous tissue was divided using cautery, removing a good portion of the redundant skin and subcutaneous tissue. A final round of irrigation was carried out. A 19 Irish fluted Chandana drain was placed on the fascia under the subcutaneous layer and was brought out through a separate stab incision on the right side of the abdomen where it was sewn in place at the skin with a suture of 3-0 nylon. The inferior skin flap was then brought superiorly where it was connected to the superior skin edge at the dermal level using multiple inverted interrupted sutures of 2-0 Vicryl. The skin was then approximated using multiple interrupted vertical mattress sutures of 2-0 nylon. Some triple antibiotic ointment was placed over the wound and a sterile dressing followed. Arrangements were made to take the patient directly to the intensive care unit postoperatively in stable condition.
[2020-02-02] MEDS: neomycin-poly-bacitracin oint 28 gm 1 APPLIC TOPICAL (02:00)
[2020-02-02] MEDS: sodium chlor 0.45% +KCl 20 mEq 20 MEQ/1,000 ML BAG 125 MEQ IV ×3 (03:23→17:50)
[2020-02-02] MEDS: propofol 1,000 MG/100 ML INJ 10.9 MG IV (03:24)
[2020-02-02] MEDS: levalbuterol 0.63 mg/3 mL Neb INHALATION ×5 (03:25→21:40)
[2020-02-02] MEDS: piperacillin-tazobactam 3.375 GM in sodium chloride 0.9% (plus) 50 ML IV ×3 (03:30→17:49)
[2020-02-02] MEDS: heparin 5,000 unit/mL INJ 1 mL 5000 UNIT SUBCUT ×3 (03:30→17:49)
[2020-02-02 05:42] LABS: ABG PCO2 41.1 mmHg (35-45); ABG PH Result 7.35 (7.35-7.45); Base Excess ABG -2.7 mmol/L (-2.0-2.0); Blood Gas Allen Test pos; HCO3 ABG 22.8 mmol/L (22-26); Oxygen Device vent
[2020-02-02 05:44] LABS: Arterial Blood Gas Hematocrit 31.8 % (37-47)
[2020-02-02] MEDS: propofol 1,000 MG/100 ML INJ 32.7 MG IV ×2 (06:02→21:18)
--- NOTE | 2020-02-02 07:06 | ANE.PACU2 ---
Inpatient post-anesthesia follow up: Airway intact: Yes Vital signs: Temperature 97.5 F Pulse Rate [Monito r] 102 Pulse Rate 100 Respiratory Rate 24 Blood Pressure [Le ft Arm] 128/80 Blood Pressure 109/59 Pulse Oximetry 96 Oxygen Delivery Me thod Mechanical Ventila tion Oxygen Flow Rate 55 Fraction of Inspir ed Oxygen 55 Hydration adequate: Yes Nausea and vomiting: No Pain level: 4 Additional Comments: Sedated/intubated in ICU, no pressors.
[2020-02-02 07:44] LABS: Glucose Point of Care 140 mg/dL (70-110)
--- NOTE | 2020-02-02 08:00 | PC.NURSE ---
FENTANYL Fentanyl infusing at 50mcg/hr at time of shift change. MAR indicating infusion at 25 mcg/hr. Correction made to MAR by this nurse.
--- NOTE | 2020-02-02 08:18 | P.PN_ITS ---
Subjective Subjective: Interval history: Events of last night noted as well as surgery. Opens eyes, acknowledges my present but obviously cannot communicate extensively as she is on the ventilator. Medications: Reviewed: Yes Vitals/I&O/Wt Last Vital Signs Temp 97.5 F L 02/01/20 16:00 Pulse 88 02/02/20 07:58 Resp 18 02/02/20 07:58 BP 109/59 02/02/20 01:30 Pulse Ox 98 02/02/20 07:58 02/01/20 02/02/20 02/02/20 22:59 06:59 14:59 Intake Total 150 / 1200 2361.859 / 3561.859 50 / 50 Output Total 365 / 865 Balance 150 / 700 1996.859 / 2696.859 50 / 50 Weight last 48 hrs Weight 181.437 kg Physical Exam Narrative: EXAM NARRATIVE: General exam is a sedated female, no apparent distress on the ventilator, CMV FiO2 50% PEEP of 8 tidal volume 450 HEENT: Pupils equally round. Makes eye contact. Oropharynx with endotracheal tube Neck is supple and obese Cardiovascular regular rate and rhythm without murmur Lungs are clear no wheezing or crackles Abdomen is soft, hypoactive bowel sounds. Surgical dressing intact demonstrates Kuo Extremities no cyanosis clubbing or edema Neurologic: Spontaneously moves extremities Skin no rash Urinary Catheter Management^: Kuo Latex: Cath Placed During This Visit: yes Reason for Continuing Indwelling Catheter: Accurate Measurement of Urinary Output in Critically Ill Patients Urinary Catheter Date of Insertion: 02/01/20 Urinary Catheter Time of Insertion: 22:25 Data : 02/01/20 06:22 02/01/20 06:22 A&P Assessment and plan (1) Small bowel obstruction: Postoperative day #1 status post exploratory laparotomy, segmental small bowel resection for necrotic bowel, repair of incarcerated ventral hernia with mesh and partial panniculectomy Appreciate surgical consultation NG in place Weight return of bowel function Status: Acute (2) Recurrent incisional hernia: See above Status: Acute (3) Leukocytosis: Zosyn started yesterday As patient had necrotic bowel, blood pressure is somewhat soft we will add vancomycin Analysis was checked and no evidence of UTI Status: Acute (4) Diabetes mellitus: Sliding scale insulin Status: Acute (5) Anemia: Follow hemoglobin closely Patient reports recent EGD, [place] with no cause of anemia discovered. Status: Acute Additional A&P Information Sepsis, represented by leukocytosis, perforated bowel, need for mechanical ventilation following surgery and elevated lactic acid. Continue Zosyn, vancomycin. Continue current fluids. On ventilator following surgery secondary to concern of sepsis. Wean oxygen as tolerated. Hopefully extubate tomorrow. Fentanyl, propofol for sedation. Check chest x-ray. full code Heparin for DVT prophylaxis Attestations Medical Necessity Statement*: Is continued hospital stay for IV antibiotics for sepsis following bowel resection for necrotic small bowel. Critical Care Time: 43 minutes spent in critical care time at bedside examining patient, reviewing laboratory, decisions regarding treatment of sepsis in this patient with high risk of and/or worsening medical condition. Coding Level of Care Code Acute Echocardiograph Technician for goyo Martinezd Diagnoses Small bowel obstruction K56.609 Recurrent incisional hernia K43.2 Leukocytosis D72.829 Diabetes mellitus E11.9 Anemia D64.9
--- NOTE | 2020-02-02 08:26 | XRR_ITS ---
PROCEDURE INFORMATION: Exam: XR Chest, 1 View Exam date and time: 02/02/2020 8:30 AM Age: 54 years old Clinical indication: Condition or disease; Lung condition and disease; Respiratory failure; Status not specified; Additional info: Resp failure TECHNIQUE: Imaging protocol: XR of the chest Views: 1 view. COMPARISON: CR XR chest 1V [id number] 02/01/2020 10:33 AM FINDINGS: Tubes, catheters and devices: Enteric tube extends to the left abdomen. Endotracheal tube tip resides 3.5 cm above the claire. Lungs: Diminutive lung volumes. Right lower lung atelectasis. Pleural space: Unremarkable. No pleural effusion. No pneumothorax. Heart/Mediastinum: Cardiac enlargement with loss of definition of the left heart and left mediastinal margin with underlying parenchymal consolidation/opacity. Bones/joints: Degenerative change of the spine. XR/XR chest 1V portable [id number] IMPRESSION: 1. Left lung consolidation concerning for pneumonia. 2. Atelectasis right lower lung.
[2020-02-02] MEDS: lactated ringers 500 ML 999 ML IV (08:42)
[2020-02-02] MEDS: propofol 1,000 MG/100 ML INJ 43.5 MG IV ×2 (08:42→11:11)
--- NOTE | 2020-02-02 08:45 | PC.CHAP ---
Pastoral Care Encounter/Spiritual Assessment Type of Contact [] Declined loan servicing officer visit [] Patient/Family/Request visit [] Outpatient visit [] Follow-up visit [] Physician referral [] Code/Alert [] Routine visit [] Staff referral [] Actively dying [] Patient sleeping [] Family support [] [] Out of room [] Palliative care [] [] Receiving care in room [] Pre-surgical visit [] Trauma [] Long length of stay [x] ICU visit [] Other: Relational/Emotional Strength [] Patient feels connected with others/family/visitors/staff [] Distress [] Loneliness/isolation [] Abandonment Spirituality of Patient [] Person of Eufemia [] Attends Yarsani of their Eufemia [] Believes in Prayer [] Reads Bible or Amish materials [] There are Spiritual issues to be addressed Java J2Ee Architect Interventions [x] Prayer [] Active listening [] Non-anxious presence [] Spiritual/emotional support [] Crisis/trauma care [] Spiritual counseling [] Bereavement support [] Provided bereavement packet [] Provided Bible/devotional materials [] Provided toy/stuffed animal, coloring book to patient or family member [] Provided Communion [] Anointing/[place] [] Salvation [x] Completed spiritual assessment [] Other: Impact on Illness or Injury [] Angry [] Fearful [] Anxious [] Often cries [] Exhaustion [] Unable to work [] Unable to attend mormonism [] Unable to walk/stand [] Unable to read [] Unable to drive [] Unable to eat/drink [] Unable to sleep [] Unable to be with family [] Patient intubated [] Other: Summary Time spent with patient
[2020-02-02 08:47] LABS: Hematocrit 34.1 % (37.0-47.0); Mean Corpuscular HGB Conc 29.3 g/dL (30.0-36.0); Mean Corpuscular Hemoglobin 24.1 pg (28.0-34.0); Mean Corpuscular Volume 82.2 fL (81-99); Mean Platelet Volume 9.9 fL (7.4-10.4); Platelet Count 235 10^3/cmm (130-400); Red Blood Count 4.15 10^6/uL (4.1-5.3); White Blood Count 13.2 10^3/uL (4.0-10.0)
[2020-02-02 09:05] LABS: Alanine Aminotransferase 31 U/L (0-33); Albumin Level 3.2 g/dL (3.5-5.2); Alkaline Phosphatase 51 IU/L (35-105); Aspartate Amino Transferase 24 U/L (0-32); Blood Urea Nitrogen 18 mg/dL (6-20); Calcium 7.7 mg/dL (8.5-10.5); Carbon Dioxide 23 mmol/L (22-29); Chloride 106 mmol/L (98-107); Globulin 2.7 g/dL (1.3-4.6); Glomerular Filtration Rate 42.7 mL/min (90-130); Glucose 140 mg/dL (65-115); Osmolality Calculated 288 mOsm/kg (285-295); Sodium 137 mmol/L (136-145); Total Bilirubin 0.4 mg/dL (0.15-1.2); Total Protein 5.9 g/dL (6.6-8.7)
[2020-02-02 09:14] LABS: Anion Gap 12.7 (5-19); Potassium 4.7 mmol/L (3.5-5.1)
[2020-02-02 09:49] LABS: Slide Review Slide Review Perform
[2020-02-02 09:50] LABS: Absolute Neutrophil 11.1 10^3/cmm (1.4-6.5); Absolute Segmented Neutrophil 5.9 10/cmm (1.6-7.1); Anisocytosis 1+; Band Neutrophils Absolute 5.1 10^3/cmm (0.0-1.2); Lymphocytes 13 %; Monocytes Absolute 0.4 10^3/cmm (0.1-0.6); Platelet Estimate Normal (Normal); Segmented Neutrophils 45 %; Total Cells Counted 100 (0-100)
[2020-02-02 09:55] LABS: Eosinophils 0 %
--- NOTE | 2020-02-02 12:06 | P.PN_ITS ---
Subjective Subjective: Interval history: The patient remains intubated in the ICU. Nursing reported that she was actually a little bit more alert earlier today but they have continued some sedation. Vitals/I&O/Wt Last Vital Signs Temp 97.5 F L 02/01/20 16:00 Pulse 86 02/02/20 11:03 Resp 17 02/02/20 11:03 BP 109/59 02/02/20 01:30 Pulse Ox 95 02/02/20 11:03 02/01/20 02/02/20 02/02/20 22:59 06:59 14:59 Intake Total 150 / 3566.901 2361.859 / 3566.901 1106.825 / 1106.825 Output Total 365 / 865 Balance 150 / 2701.901 1996.859 / 2701.901 1106.825 / 1106.825 Weight last 48 hrs Weight 400 lb Physical Exam Narrative: EXAM NARRATIVE: Bowel sounds are infrequent. The Chandana drain has some serosanguineous fluid in the bulb. The patient's urine output has improved since this morning following a fluid bolus. Urinary Catheter Management^: Kuo Latex: Cath Placed During This Visit: yes Reason for Continuing Indwelling Catheter: Accurate Measurement of Urinary Output in Critically Ill Patients Urinary Catheter Date of Insertion: 02/01/20 Urinary Catheter Time of Insertion: 22:25 Data : 02/02/20 08:28 02/02/20 08:28 A&P Assessment and plan (1) Recurrent incisional hernia: Status post reduction and repair of an incarcerated recurrent ventral hernia. The patient unfortunately had a necrotic segment of small bowel and underwent a small bowel resection in addition to an incidental appendectomy and partial panniculectomy. Continue ICU management. Status: Acute (2) Small bowel obstruction: Status: Acute Attestations Medical Necessity Statement*: See admitting service's notation. Coding Level of Care Code Acute Product Management Consultant for Natasha Bell Diagnoses Recurrent incisional hernia K43.2 Small bowel obstruction K56.609
[2020-02-02 12:34] LABS: Glucose Point of Care 130 mg/dL (70-110)
[2020-02-02] MEDS: famotidine 20 mg/2 mL INJ IVP (12:55)
[2020-02-02] MEDS: propofol 1,000 MG/100 ML INJ 38.1 MG IV ×3 (13:35→18:30)
[2020-02-02] MEDS: sodium chloride 0.9% 500 ML IV (13:50)
[2020-02-02] MEDS: morphine 4 mg/mL SDV 1 mL IVP (16:38)
[2020-02-02 17:45] LABS: Glucose Point of Care 129 mg/dL (70-110)
[2020-02-02 20:24] LABS: Glucose Point of Care 125 mg/dL (70-110)
--- NOTE | 2020-02-02 21:56 | PC.NURSE ---
assessment tolerating intubation at this time, opens eyes to verbal, attempts to animal trapper hands but very weak, supine 45 degrees call light within reach
[2020-02-03] VITALS (64 sets, daily range): BP systolic 78–118; BP diastolic 39–91; PULSE 74–98; RESP 16–25; TEMP 37.7–38.6; O2SAT 91–100
[2020-02-03] MEDS: propofol 1,000 MG/100 ML INJ 43.5 MG IV ×6 (00:40→15:24)
[2020-02-03] MEDS: heparin 5,000 unit/mL INJ 1 mL 5000 UNIT SUBCUT ×3 (01:45→19:09)
[2020-02-03] MEDS: famotidine 20 mg/2 mL INJ IVP ×2 (01:45→13:52)
[2020-02-03] MEDS: piperacillin-tazobactam 3.375 GM in sodium chloride 0.9% (plus) 50 ML IV ×3 (01:46→19:09)
[2020-02-03] MEDS: sodium chlor 0.45% +KCl 20 mEq 20 MEQ/1,000 ML BAG 125 MEQ IV (02:11)
[2020-02-03] MEDS: acetaminophen 325 mg Tablet 650 MG PO ×2 (02:40→19:10)
--- NOTE | 2020-02-03 03:02 | PC.NURSE ---
New order 2000 BP 88/53, Dr. Hanks approved Levophed drip per protocol, BP maintaining since PRN Tylenol administered for temp 101.3
--- NOTE | 2020-02-03 05:00 | XR_ITS ---
WS: [id number] PORTABLE CHEST HISTORY: Intubated COMPARISON: 02/02/2020 Nasogastric and endotracheal tubes in good position. Lung volumes are decreased. Increased consolidation at the LEFT lung base obscuring the diaphragm. Ne w since the prior study. Mild interstitial edema. Small bilateral pleural effusions. Cardiac size: Moderately enlarged cardiac silhouette. Mediastinum/Aorta: Mild atherosclerosis aorta. No osseous abnormality seen. XR/XR chest 1V portable [id number] IMPRESSION: 1. Nasogastric and endotracheal tubes in good position. 2. At least partial atelectasis of the LEFT lower lobe with atelectatic change s adjacent to the descending aorta. 3. Small bilateral pleural effusions.
[2020-02-03 05:29] LABS: Basophils # 0.1 10^3/uL (0.0-0.1); Basophils % 0.7 %; Eosinophils % 0.3 %; Hematocrit 28.9 % (37.0-47.0); Hemoglobin 8.4 g/dL (11.5-15.3); Lymphocytes # 1.3 10^3/uL (0.8-4.8); Lymphocytes % 10.6 %; Mean Corpuscular HGB Conc 29.1 g/dL (30.0-36.0); Mean Corpuscular Hemoglobin 24.1 pg (28.0-34.0); Mean Platelet Volume 9.7 fL (7.4-10.4); Monocytes # 1.5 10^3/uL (0.2-0.9); Monocytes % 12.7 %; Neutrophils % 75.3 %; Nucleated Red Blood Cells % 0 %; Platelet Count 201 10^3/cmm (130-400); Red Blood Count 3.48 10^6/uL (4.1-5.3); Red Cell Distribution Width 22.9 % (12.1-15.1); White Blood Count 11.8 10^3/uL (4.0-10.0)
[2020-02-03 05:44] LABS: ABG PCO2 41.8 mmHg (35-45); ABG PH Result 7.33 (7.35-7.45); Arterial Blood Gas Hematocrit 32.7 % (37-47); Base Excess ABG -3.7 mmol/L (-2.0-2.0); Blood Gas Allen Test Pos; Blood Gas Operator Identificat HARKR; Blood Gas Sample Site Radial, right; Blood Gas Sample Type Arterial; Blood Gas Tidal Volume 0.45; HCO3 ABG 22.1 mmol/L (22-26); Oxygen Device VENT
[2020-02-03 05:56] LABS: Alanine Aminotransferase 38 U/L (0-33); Albumin Level 2.4 g/dL (3.5-5.2); Alkaline Phosphatase 58 IU/L (35-105); Anion Gap 13.7 (5-19); Aspartate Amino Transferase 141 U/L (0-32); Blood Urea Nitrogen 34 mg/dL (6-20); Calcium 7.7 mg/dL (8.5-10.5); Carbon Dioxide 20 mmol/L (22-29); Chloride 107 mmol/L (98-107); Globulin 3.2 g/dL (1.3-4.6); Glomerular Filtration Rate 42.7 mL/min (90-130); Glucose 126 mg/dL (65-115); Osmolality Calculated 291 mOsm/kg (285-295); Potassium 4.7 mmol/L (3.5-5.1); Sodium 136 mmol/L (136-145); Total Bilirubin 0.4 mg/dL (0.15-1.2); Total Protein 5.6 g/dL (6.6-8.7)
[2020-02-03] MEDS: levalbuterol 0.63 mg/3 mL Neb INHALATION ×4 (07:55→22:33)
[2020-02-03 08:40] LABS: Glucose Point of Care 94 mg/dL (70-110)
[2020-02-03] MEDS: sodium chloride 0.9% 1,000 ML 75 ML IV ×2 (09:46→09:50)
--- NOTE | 2020-02-03 10:02 | P.PN_ITS ---
Subjective Subjective: Interval history: The patient remains on the ventilator. Vitals/I&O/Wt Last Vital Signs Temp 100.5 F H 02/03/20 07:30 Pulse 98 02/03/20 09:30 Resp 25 H 02/03/20 09:30 BP 118/91 02/03/20 09:30 Pulse Ox 100 02/03/20 09:30 02/02/20 02/03/20 02/03/20 22:59 06:59 14:59 Intake Total 3853.614 / 7020.389 1921.825 / 7020.389 Output Total 400 / 920 520 / 920 Balance 3453.614 / 6100.389 1401.825 / 6100.389 Physical Exam Narrative: EXAM NARRATIVE: Hemodynamics remain fairly stable. The patient did require quite a bit of hydration yesterday and I am sure is having some third spacing. The abdomen is fairly quiet but the dressing was removed and the incision actually looks very good. She does have some serosanguineous fluid in the bulb of the Chandana drain. Urinary Catheter Management^: Kuo Latex: Cath Placed During This Visit: yes Reason for Continuing Indwelling Catheter: Acute Urinary Retention or Ob struction Urinary Catheter Date of Insertion: 02/01/20 Urinary Catheter Time of Insertion: 22:25 Data : 02/03/20 05:06 02/03/20 05:06 A&P Assessment and plan (1) Recurrent incisional hernia: Status post reduction and repair of an incarcerated recurrent ventral hernia. The patient unfortunately had an incarcerated and necrotic segment of small bowel and underwent a small bowel resection in addition to an incidental appendectomy and partial panniculectomy. Continue ICU management. Status: Acute (2) Small bowel obstruction: Status: Acute Attestations Medical Necessity Statement*: See admitting service's notation. Coding Level of Care Code Acute Housekeeping/Laundry Supervisor for Natasha Bell Diagnoses Recurrent incisional hernia K43.2 Small bowel obstruction K56.609
--- NOTE | 2020-02-03 10:41 | PM.PN ---
Subjective Subjective: Interval history: Sonya is sedated on the ventilator. Febrile overnight. Medications: Reviewed: Yes Vitals/I&O/Wt Last Vital Signs Temp 100.5 F H 02/03/20 07:30 Pulse 98 02/03/20 09:30 Resp 25 H 02/03/20 09:30 BP 118/91 02/03/20 09:30 Pulse Ox 100 02/03/20 09:30 02/02/20 02/03/20 02/03/20 22:59 06:59 14:59 Intake Total 3853.614 / 5098.564 1921.825 / 7020.389 Output Total 400 / 400 520 / 920 Balance 3453.614 / 4698.564 1401.825 / 6100.389 Physical Exam Narrative: EXAM NARRATIVE: General exam is a sedated female, no apparent distress on the ventilator, CMV FiO2 35% PEEP of 10 HEENT: Pupils equally round. Sleeping Oropharynx with endotracheal tube Neck is supple and obese Cardiovascular regular rate and rhythm without murmur Lungs are clear no wheezing or crackles Abdomen is soft, hypoactive bowel sounds. Surgical dressing intact demonstrates Kuo Extremities no cyanosis clubbing or edema Neurologic: Spontaneously moves extremities Skin no rash Urinary Catheter Management^: Kuo Latex: Cath Placed During This Visit: yes Reason for Continuing Indwelling Catheter: Acute Urinary Retention or Obstruction Urinary Catheter Date of Insertion: 02/01/20 Urinary Catheter Time of Insertion: 22:25 Data : 02/03/20 05:06 02/03/20 05:06 Other data: Chest x-ray today demonstrates left lower lobe atelectasis or infiltrate A&P Assessment and plan (1) Small bowel obstruction: Postoperative day #2 status post exploratory laparotomy, segmental small bowel resection for necrotic bowel, repair of incarcerated ventral hernia with mesh and partial panniculectomy Appreciate surgical consultation NG in place Await return of bowel function Status: Acute (2) Recurrent incisional hernia: See above Status: Acute (3) Leukocytosis: Improving Currently on Zosyn and vancomycin As patient had necrotic bowel, blood pressure is somewhat soft we will add vancomycin Analysis was checked and no evidence of UTI Status: Acute (4) Diabetes mellitus: Sliding scale insulin Status: Acute (5) Anemia: Follow hemoglobin closely Patient reports recent EGD, [place] with no cause of anemia discovered. Status: Acute Additional A&P Information Sepsis, represented by leukocytosis, perforated bowel, need for mechanical ventilation following surgery and elevated lactic acid. Continue Zosyn, vancomycin. Currently febrile. Hypotension. Responded to fluids. Norepinephrine was never instituted. Blood pressure currently better. She is 8 L positive from admission. Needs diuresis. Hold further fluid. Lasix 20 mg x 1. Further doses depending upon response, blood pressure as she had borderline hypotension earlier this morning. Respiratory failure. . Multifactorial. Came back from surgery intubated secondary to sepsis, etc. left lower lobe infiltrate or atelectasis is noted. Cannot rule out pneumonia or even aspiration. Continue current IV antibiotics. Check MRSA PCR. Pulmonary consult. full code Heparin for DVT prophylaxis Attestations Medical Necessity Statement*: Needs continued hospitalization secondary respiratory failure requiring mechanical ventilation Critical Care Time: 35 minutes spent in critical care time at bedside in this patient with respiratory failure, sepsis, borderline hypotension with high risk for and/or decompensation Coding Level of Care Code Acute Ac/Dc Rewinder for [facility] Diagnoses Small bowel obstruction K56.609 Recurrent incisional hernia K43.2 Leukocytosis D72.829 Diabetes mellitus E11.9 Anemia D64.9
[2020-02-03 11:48] LABS: ABG PH Result 7.34 (7.35-7.45); Alveolar-Arterial Oxygen Gradi 10.9 mmHg (5-10); Arterial Blood Gas Hematocrit 27.8 % (37-47); Base Excess ABG -4.4 mmol/L (-2.0-2.0); Blood Gas Allen Test Pos; Blood Gas Operator Identificat CAK; Blood Gas Sample Site Radial, left; Blood Gas Sample Type Arterial; Blood Gas Tidal Volume 0.42; Carboxyhemoglobin 1.4 %THgb (0.4-20.1); HGB O2 Sat 93.9 % (95-100); Ionized Calcium Level - ABG 1.1 mmol/L (1.1-1.4); Oxygen Device VENT; Oxygen Saturation ABG 96.2; PO2 ABG 79.3 mmHg (80.0-100.0); Potassium Level - ABG 4.4 mmol/L (3.5-5.0); Total Hemoglobin 9.1 g/dL (12-16)
[2020-02-03 13:22] LABS: Glucose Point of Care 119 mg/dL (70-110)
[2020-02-03] MEDS: FUROsemide 10 mg/mL SDV 2mL 20 MG IVP (13:51)
--- NOTE | 2020-02-03 16:48 | P.CONIM_ITS ---
Providers/Reason For Consult Consulting Physican/Specialty*: Eddi Grover MD / Pulmonary Critical Care Reason for Consult*: Assist with mechanical ventilation and extubation in post abdomen surgery patient. Attending Physician: Kleber Galvan MD Primary Care Provider: Henrik Stevens NP History of Present Illness History of Present Illness Sonya Barragan is a 54 year old female with PMH DM, history of DVT, recurrent ventral hernias, morbid obesity , previously felt to be too high risk for surgery in light of her severe obesity and she continues to gain weight and comes to emergency room with complaints of abdominal pain for 1 day. Tried tried stool softeners and laxatives which did not help and patient ended up having vomitings and abdominal pain progressed to 10/10. CT abdomen pelvis in the ED is concerning for pneumatosis and surgery were consulted. Patient was admitted to medical floor. On day 2 of admission patient underwent Exploratory laparotomy with segmental small bowel resection for necrotic segment of small bowel, repair of recurrent incarcerated ventral hernias with mesh, partial panniculectomy and appendectomy as well. During surgery patient was hypotensive and required about 7 L of fluids. Patient is transferred to ICU intubated and mechanically ventilated. Pulmonary consultation requested for ventilator management and extubation. Today's postop day 2: pt. seen at bedside, on mechanical ventilator,CMV mode 420 TV, 14 RR, 35% FiO2 and PEEP of 10 saturating 95% Hemodynamically stable Sedated with propofol 10 and fentanyl 100 MCG Tmax 101.5 and maps 65-70 Input / output even since morning 1.5 L / 1.4 L On vancomycin and Zosyn Review of Systems General: Reports: ROS unobtainable due to endotracheal tube, ROS unobtainable due to medical condition and ROS unobtainable due to mental status Meds/Allergies Home Medications and Allergies Home Medications Medication Instructions Recorded Confirmed Last Taken Type albuterol sulfate 1 - 2 puff INHALATION QID PRN 02/01/20 02/01/20 Unknown History cholecalciferol (vitamin D3) 1,250 mcg PO Q7D 02/01/20 02/01/20 01/25/20 History docusate sodium [Stool Softener] 100 mg PO BID@12,18 02/01/20 02/01/20 01/31/20 History fenofibrate 54 mg PO DAILY@18 02/01/20 02/01/20 01/31/20 History furosemide 40 mg PO DAILY@18 02/01/20 02/01/20 01/31/20 History gabapentin 300 mg PO TID@04,,02/01/20 02/01/20 01/31/20 History lisinopril 10 mg PO DAILY@02/01/20 02/01/20 01/31/20 History meloxicam 15 mg PO DAILY@02/01/20 02/01/20 01/31/20 History metformin 500 mg PO DAILY@02/01/20 02/01/20 01/31/20 History methylcellulose (laxative) [Fiber 500 mg PO DAILY@02/01/20 02/01/20 01/31/20 History Therapy Laxative] pantoprazole 20 mg PO DAILY@02/01/20 02/01/20 01/31/20 History pravastatin 10 mg PO DAILY@02/01/20 02/01/20 01/31/20 History Allergies Allergy/AdvReac Type Severity Reaction Status Date / Time codeine Allergy ALGY-Hives Verified 02/01/20 06:18 Current Medications Current Medications Generic Name Dose Route Start Last Admin Trade Name Freq PRN Reason Stop Dose Admin Acetaminophen 650 mg 02/01/20 13:07 02/03/20 02:40 Acetaminophen 325 Mg Tablet PO 650 mg Q6H PRN Administration Mild/Mod Pain Or Temp >/= 101 Famotidine 20 mg 02/01/20 13:30 02/03/20 13:52 Famotidine 20 Mg/2 Ml Inj IVP 20 mg Q12H JUSTYN Administration Heparin Sodium (Beef Lung) 5,000 unit 02/02/20 02:32 02/03/20 09:44 Heparin 5,000 Unit/Ml Inj 1 Ml SUBCUT 5,000 unit Q8H JUSTYN Administration Piperacillin Sod/Tazobactam 50 mls @ 12.5 mls/hr 02/02/20 02:32 02/03/20 09:44 Sod 3.375 gm/ Sodium Chloride IV 12.5 mls/hr Q8H JUSTYN Administration Protocol Fentanyl 1,000 mcg/ Sodium 100 mls @ 0 mls/hr 02/02/20 03:15 02/02/20 15:29 Chloride IV 100 mcg/hr .Q0M JUSTYN 10 mls/hr Administration Protocol Per Protocol Propofol 1,000 mg in 100 mls @ 0 mls/hr 02/02/20 03:15 02/03/20 15:24 Diprivan IV 40 mcg/kg/min .Q0M JUSTYN 43.5 mls/hr Administration Protocol Per Protocol Vancomycin HCl 2,000 mg/ 500 mls @ 125 mls/hr 02/02/20 09:30 02/03/20 09:57 Sodium Chloride IV 125 mls/hr Q12H JUSTYN Administration Protocol Insulin Aspart 0 unit 02/01/20 18:00 02/03/20 13:51 Insulin Aspart 100 Unit/1 Ml SUBCUT Not Given WM&BEDTIME JUSTYN Protocol Levalbuterol HCl 0.63 mg 02/02/20 04:00 02/03/20 15:18 Levalbuterol 0.63 Mg/3 Ml Neb INHALATION 0.63 mg Q4H.RESPIRATORY JUSTYN Administration Morphine Sulfate 2 - 4 mg 02/02/20 02:32 02/02/20 16:38 Morphine 4 Mg/Ml Sdv 1 Ml IVP 4 mg Q4H PRN Administration SEVERE PAIN Ondansetron HCl 4 mg 02/01/20 11:16 02/01/20 11:47 Ondansetron 2 Mg/Ml Sdv 2 Ml IVP 4 mg Q6H PRN Administration NAUSEA AND VOMITING PFSH Acute PFSH: Medical History Anemia Arthritis Chronic back pain Diabetes mellitus Hernia History of DVT (deep vein thrombosis) SBO (small bowel obstruction) Sinusitis Surgical History History of 2 sections History of breast biopsy History of ventral hernia repair Multiple 02/01 2020 -- incarcerated recurrent ventral hernia with necrotic small bowel Repair of recurrent ventral hernia with mesh, segmental small bowel resection, incidental appendectomy Mass of soft tissue of forearm Benign -- excised 2013 Status post carpal tunnel release of both wrists Family History Other CAD (coronary artery disease) Social History Smoking and tobacco status: never smoked Alcohol intake: never Vitals/I&O/Wt Last Vital Signs Temp 101.5 F H 02/03/20 15:00 Pulse 88 02/03/20 15:24 Resp 22 H 02/03/20 15:21 BP 93/52 02/03/20 15:00 Pulse Ox 95 02/03/20 15:18 02/03/20 02/03/20 02/03/20 06:59 14:59 22:59 Intake Total 1921.825 / 7020.389 205 / 205 Output Total 520 / 920 100 / 100 60 / 160 Balance 1401.825 / 6100.389 105 / 105 -60 / 45 Physical Exam Narrative: EXAM NARRATIVE: PHYSICAL EXAM: General: lying in bed, sedated and intubated. HEENT:NCAT, PERRLA, EOMI Neck: Supple Lungs: Clear, Heart: s1/s2, RRR Abd: Obese, transverse surgical incision with clips looked clean, ND, sluggish BS + Extremities: No edema BIOPHYSICS TEACHER: sedated and limited BIOPHYSICS TEACHER exam possible. SKIN: no rash Urinary Catheter Management^: Kuo Latex: Cath Placed During This Visit: yes Reason for Continuing Indwelling Catheter: Acute Urinary Retention or Obstruction Urinary Catheter Date of Insertion: 02/01/20 Urinary Catheter Time of Insertion: 22:25 Data Other Data: Other data: Reviewed A&P Assessment and plan (1) Difficult ventilator weaning: Status: Acute (2) Diabetes mellitus: Status: Acute Qualifiers: Diabetes mellitus type: type 2 Diabetes mellitus supervisor intermediates insulin use: without prison use Diabetes mellitus complication status: with other specified complication Qualified Code(s): E11.69 - Type 2 diabetes mellitus with other specified complication (3) Abdominal wall hernia: Status: Acute (4) Pneumatosis of intestines: Status: Acute (5) Status post exploratory laparotomy: Status: Acute (6) Respiratory failure, post-operative: Status: Acute (7) History of DVT (deep vein thrombosis): Status: Acute MEDICATIONS: reviewed and reconciled ASSESSMENT/PLAN:Overall: Ms. Sonya Barragan 54 female with past medical history of diabetes, history of DVT, recurrent incision incisional ventral hernia, morbid obesity admitted for abdominal pain and underwent Exploratory laparotomy with segmental small bowel resection for necrotic segment of small bowel, repair of recurrent incarcerated ventral hernias with mesh, partial panniculectomy and appendectomy on 02/02/[address] DELA CRUZ. Postoperative respiratory failure requiring mechanical ventilation. NEURO: #Propofol gtt @10 and fentanyl GTT @-100 MCg -Recommended to taper propofol and start Precedex gtt. to facilitate extubation and address anxiety during extubation #Postoperative pain -On fentanyl 100 MCG GTT and morphine as needed PULM: #Difficult to wean off ventilator post surgery due to morbid obesity -Currently on CMV 420//12/10 5% and ABG 7.3 4/39/79/21/96% -Chest x-ray small bilateral pleural effusions and partial atelectasis of LLL -PEEP of 10 or more will help prevent further atelectasis -Recommend suctioning and nebulization with Xopenex every 6 hours as needed -Since admission +8 L; last 12 hours even patient received 1 dose of Lasix 40mg recommended to give extra dose of 40 mg today evening -We will reevaluate and proceed with spontaneous awakening trials and breathing trials tomorrow morning -Definitely requires BiPAP on extubation CVS: -Hemodynamically stable -Maps are soft between 65-70 -Monitor blood pressure and heart rates -Monitor temperature spikes, WBC, abdominal pressures to rule out abdominal compartment syndrome as cause of shock -Send lactic acid GI: #Recurrent ventral hernia-s/p exploratory laparotomy and repair, small bowel segment resection for necrosis, partial panniculectomy #Elevated LFTs -Diet-n.p.o. -Surgical scar looks clean -Famotidine daily for GI prophylaxis -LFTs post surgery-monitor LFTs and avoid hepatotoxic medications -MELONY drain 100 cc -Monitor bladder pressures and if greater than 12 suspect abdominal compartment syndrome -Surgery follow-up RENAL: -BUN/creatinine normal range -I/O/N - 10 liters/2 L / +8 L since admission -I/O/N -1.5 L/1.4 L / 100 mL last 12 hours-after 1 dose of Lasix 40 mg electrolytes within normal limits -Monitor renal functions and electrolytes and supplement as needed -Monitor input output and try to keep negative to even -Recommended to give 1 more dose of Lasix 40 mg HEM: #Postoperative H and H dropped from 10 to 8.4 likely dilutional -monitor for internal bleeding #History of DVT -obviously at high risk for developing DVT/PE due to postop status -Monitor H&H and transfuse to keep H&H greater than 7/ -DVT prophylaxis Heparin 500 subcu -If drop in H&H noted; DC heparin and evaluate for internal bleeding repeat CT abdomen pelvis ENDO: #Diabetes -Sugars well controlled -Monitor FSBS and patient is on scale coverage ID: #Fever spikes-postoperative -WBC 11.2 K -Currently covered with vancomycin and Zosyn for postoperative coverage -If severe spikes continue please send for blood cultures, urine cultures, transtracheal sputum cultures, MELONY drain cultures and broaden coverage to vancomycin and meropenem -Monitor temperature and WBC Code Status: Full code Disposition: Remains in ICU Critically ill: Remains critically ill MD discussed with: Dr. Galvan, RN and RT taking care of the patient ICU CHECKLIST: Problem list updated Verbal orders reviewed and signed Analgesia: Fentanyl, morphine Glycemic Control: Insulin scale coverage Nutrition: N.p.o. for now Restraint Renewal (within 24 hrs): Yes Ulcer Prophylaxis: H2 jose Chemical Thromboprophylaxis: Prophylaxis: Heparin Mechanical Thromboprophylaxis: SCDs Need for Kuo catheter: Input output monitoring Consult Attestations Medical Necessity Statement: Respiratory failure and difficult extubation in morbidly obese patient who underwent exploratory laparotomy for recurrent vent ral hernia and small bowel necrosis Time Spent in Patient Care: Greater than 35 minutes (>than 50% of time spent in counselling and/or direct pt care on unit) . 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
[2020-02-03] MEDS: propofol 1,000 MG/100 ML INJ 32.7 MG IV ×2 (18:56→22:00)
[2020-02-03] MEDS: FUROsemide 10 mg/mL SDV 4mL 40 MG IVP (19:08)
[2020-02-03] MEDS: sodium chloride 0.9% 1,000 ML 10 ML IV (19:09)
[2020-02-03] MEDS: dexmedetomidine 400 MCG in sodium chloride 0.9% (100 ml) 100 ML IV (19:48)
[2020-02-03 20:42] LABS: Glucose Point of Care 110 mg/dL (70-110)
[2020-02-03 21:41] LABS: Glucose Point of Care 122 mg/dL (70-110)
[2020-02-03 21:49] LABS: Vancomycin Trough 17.9 ug/mL (10-15)
--- NOTE | 2020-02-03 23:33 | PC.NURSE ---
BP decline BP 81/39 map 53 2029, Propofol decreased, MAp 53 2119, Levophed started per order, Precedex increased to decrease Propofol. 2149 MAp 75 BP 108/58. 0 patient became restless pulling at lines and fighting vent, Protocol increased per protocol, patient resting eyes closed supine 30 degrees, VS WNL
[2020-02-04] VITALS (45 sets, daily range): BP systolic 91–135; BP diastolic 52–79; PULSE 60–82; RESP 14–26; TEMP 37.4–38.7; O2SAT 91–97
[2020-02-04] MEDS: propofol 1,000 MG/100 ML INJ 43.5 MG IV (01:39)
[2020-02-04] MEDS: famotidine 20 mg/2 mL INJ IVP ×2 (01:41→17:55)
[2020-02-04] MEDS: heparin 5,000 unit/mL INJ 1 mL 5000 UNIT SUBCUT ×3 (01:41→17:56)
[2020-02-04] MEDS: dexmedetomidine 400 MCG in sodium chloride 0.9% (100 ml) 100 ML 14.2 MCG IV (02:06)
--- NOTE | 2020-02-04 02:38 | PC.NURSE ---
Abdominal pressure measured at 10
[2020-02-04] MEDS: piperacillin-tazobactam 3.375 GM in sodium chloride 0.9% (plus) 50 ML IV (03:00)
[2020-02-04] MEDS: propofol 1,000 MG/100 ML INJ 38.1 MG IV (04:26)
[2020-02-04 04:37] LABS: ABG PCO2 42.1 mmHg (35-45); ABG PH Result 7.35 (7.35-7.45); Arterial Blood Gas Hematocrit 28.6 % (37-47); Blood Gas Allen Test Pos; Blood Gas Sample Site Radial, left; Blood Gas Sample Type Arterial; Blood Gas Tidal Volume 0.42; HCO3 ABG 23.4 mmol/L (22-26); Oxygen Device VENT; PO2 ABG 82.9 mmHg (80.0-100.0)
[2020-02-04 04:48] LABS: Basophils # 0.1 10^3/uL (0.0-0.1); Basophils % 0.7 %; Eosinophils # 0.1 10^3/uL (0.0-0.8); Eosinophils % 0.9 %; Hemoglobin 8.3 g/dL (11.5-15.3); Lymphocytes # 1.4 10^3/uL (0.8-4.8); Lymphocytes % 9.6 %; Mean Corpuscular HGB Conc 29.6 g/dL (30.0-36.0); Mean Corpuscular Hemoglobin 24.1 pg (28.0-34.0); Mean Corpuscular Volume 81.4 fL (81-99); Mean Platelet Volume 9.5 fL (7.4-10.4); Monocytes # 1.4 10^3/uL (0.2-0.9); Monocytes % 9.8 %; Neutrophils # 11.26 10^3/uL (1.8-7.7); Neutrophils % 78.1 %; Nucleated Red Blood Cells % 0 %; Platelet Count 229 10^3/cmm (130-400); Red Blood Count 3.44 10^6/uL (4.1-5.3); Red Cell Distribution Width 22.4 % (12.1-15.1); White Blood Count 14.4 10^3/uL (4.0-10.0)
[2020-02-04 05:13] LABS: Alanine Aminotransferase 47 U/L (0-33); Albumin Level 2.4 g/dL (3.5-5.2); Alkaline Phosphatase 71 IU/L (35-105); Anion Gap 13.1 (5-19); Aspartate Amino Transferase 203 U/L (0-32); Blood Urea Nitrogen 22 mg/dL (6-20); Calcium 7.8 mg/dL (8.5-10.5); Carbon Dioxide 22 mmol/L (22-29); Chloride 106 mmol/L (98-107); Globulin 3.4 g/dL (1.3-4.6); Glomerular Filtration Rate 74.7 mL/min (90-130); Glucose 138 mg/dL (65-115); Osmolality Calculated 290 mOsm/kg (285-295); Potassium 4.1 mmol/L (3.5-5.1); Sodium 137 mmol/L (136-145); Total Bilirubin 0.3 mg/dL (0.15-1.2); Total Protein 5.8 g/dL (6.6-8.7)
--- NOTE | 2020-02-04 06:17 | NUR.SHIFT ---
Attempted to wean off propofol throughout the night, each time below 30 mcg/min/kg, when Precedex is 0.3 mcg/kg/hr BP drops, will open eyes to verbal, does not angle roll operator hands, lungs clear but diminished, supine 45 degrees at this time call light within reach, ET 24 @ lip
--- NOTE | 2020-02-04 07:00 | XRR_ITS ---
PROCEDURE INFORMATION: Exam: XR Chest, 1 View Exam date and time: 02/04/2020 5:57 AM Age: 54 years old Clinical indication: Condition or disease; Lung condition and disease; Respiratory failure; Acute on chronic; Levels not specified; Additional info: Resp failure TECHNIQUE: Imaging protocol: XR of the chest Views: 1 view. COMPARISON: CR XR chest 1V portable [id number] 02/03/2020 5:16 AM FINDINGS: Tubes, catheters and devices: Endotracheal tube tip resides 2.9 cm above the claire. Lungs: Severely diminutive the inspiratory volume. Diminishing prominence of retrocardiac consolidation in the left lower lung and appearance of diminishing effusion. Possible minor atelectasis right lower lung. Pleural space: No pneumothorax. Heart/Mediastinum: Cardiomediastinal silhouette is similar. Bones/joints: Degenerative change of thoracic spine. Other findings: Likely residual right effusion. XR/XR chest 1V portable [id number] IMPRESSION: 1. Diminishing left lower lobe retrocardiac consolidation and diminishing left effusion. 2. Residual small right pleural effusion.
[2020-02-04] MEDS: levalbuterol 0.63 mg/3 mL Neb INHALATION ×5 (07:50→23:34)
--- NOTE | 2020-02-04 08:24 | P.PN_ITS ---
Subjective Subjective: Interval history: The patient remains intubated in the intensive care unit. The ventilator is being weaned. Vitals/I&O/Wt Last Vital Signs Temp 101.1 F H 02/03/20 21:48 Pulse 72 02/04/20 07:59 Resp 20 H 02/04/20 08:21 BP 117/66 02/04/20 07:00 Pulse Ox 94 02/04/20 07:59 02/03/20 02/04/20 02/04/20 22:59 06:59 14:59 Intake Total 332.113 / 1743.717 656.604 / 1743.717 585.113 / 585.113 Output Total 510 / 2035 1425 / 2035 Balance -177.887 / -291.283 -768.396 / -291.283 585.113 / 585.113 Physical Exam Narrative: EXAM NARRATIVE: The incision looks good. The Chandana drain has some serous/serosanguineous fluid in the bulb. Urinary Catheter Management^: Kuo Latex: Cath Placed During This Visit: yes Reason for Continuing Indwelling Catheter: Accurate Measurement of Urinary Output in Critically Ill Patients Urinary Catheter Date of Insertion: 02/01/20 Urinary Catheter Time of Insertion: 22:25 Data : 02/04/20 04:26 02/04/20 04:26 A&P Assessment and plan (1) Recurrent incisional hernia: Status post reduction and repair of an incarcerated recurrent ventral hernia 02/02/2020. The patient unfortunately had an incarcerated and necrotic segment of small bowel and underwent a small bowel resection in addition to an incidental appendectomy and partial panniculectomy. Continue ICU management. Status: Acute (2) Small bowel obstruction: Status post reduction and repair of incarcerated recurrent ventral hernias on 02/02/2020. Status: Acute Attestations Medical Necessity Statement*: See admitting service's notation. Coding Level of Care Code Acute Oral And Maxillofacial Surgery for [facility] Diagnoses Recurrent incisional hernia K43.2 Small bowel obstruction K56.609
--- NOTE | 2020-02-04 09:00 | PC.NURSE ---
INTRA-ABDOMINAL PRESSURE PRESSURE 20 MM[facility], REPORTED TO DR MAYO
--- NOTE | 2020-02-04 09:27 | PM.PN ---
Subjective Subjective: Interval history: Intubated, sedated. Not in distress. Vitals/I&O/Wt Last Vital Signs Temp 101.1 F H 02/03/20 21:48 Pulse 72 02/04/20 07:59 Resp 20 H 02/04/20 08:21 BP 117/66 02/04/20 07:00 Pulse Ox 94 02/04/20 07:59 02/03/20 02/04/20 02/04/20 22:59 06:59 14:59 Intake Total 332.113 / 1087.113 656.604 / 1743.717 585.113 / 585.113 Output Total 510 / 610 1425 / 2035 Balance -177.887 / 477.113 -768.396 / -291.283 585.113 / 585.113 Physical Exam Const: COMMON NORMALS: no acute distress NUTRITIONAL APPEARANCE: obese morbidly obese OTHER: Intubated. Sedated. HENMT: COMMON NORMALS: oropharynx normal Neck/C-Spine: COMMON NORMALS: no JVD (No obvious JVD, but very thick neck.) Resp: COMMON NORMALS: normal respiratory effort and clear to auscultation bilaterally AUSCULTATION: clear to auscultation bilaterally and rhonchi left lower Cardio: COMMON NORMALS: no JVD (No obvious JVD, but very thick neck.), regular rhythm, S1 normal heart sound present, S2 normal heart sound present and No murmurs present (Cardio) RHYTHM: regular rhythm HEART SOUNDS: S1 normal heart sound present and S2 normal heart sound present GI: COMMON NORMALS: Normal to inspection, nondistended, normoactive bowel sounds present and non-tender AUSCULTATION: Yes Hypoactive bowel sounds present OTHER: Abdomen is very large. Wound across epigastrium appears clean, without surrounding erythema, no drainage or bleeding. Extremity: COMMON NORMALS: no joint enlargement GENERAL: Yes edema (Very large extremities. Mild pedal edema present.) Neuro: COMMON NORMALS: moves all extremities Skin: COMMON NORMALS: no rashes or lesions noted GENERAL SKIN EXAM: no rashes or lesions noted Urinary Catheter Management^: Kuo Latex: Cath Placed During This Visit: yes Reason for Continuing Indwelling Catheter: Accurate Measurement of Urinary Output in Critically Ill Patients Urinary Catheter Date of Insertion: 02/01/20 Urinary Catheter Time of Insertion: 22:25 Data : 02/04/20 04:26 02/04/20 04:26 A&P Assessment and plan (1) Sepsis: Septic shock. Panculture. Antibiotics to Primaxin, vancomycin. Wean pressor as tolerating. Monitor intra-abdominal pressures. Overnight reported as 10 mmHg. Sedation has been changed, weaning off propofol. Perhaps may help with blood pressure as well. Status: Acute (2) Small bowel obstruction: Per surgery. Postoperative day #2 status post exploratory laparotomy, segmental small bowel resection for necrotic bowel, repair of incarcerated ventral hernia with mesh and partial panniculectomy NG in place Await return of bowel function Status: Acute (3) Recurrent incisional hernia: See above Status: Acute (4) Leukocytosis: Worse. As above. As patient had necrotic bowel, blood pressure is somewhat soft we will add vancomycin Status: Acute (5) Diabetes mellitus: Sliding scale insulin Status: Acute Qualifiers: Diabetes mellitus complication status: with other specified complication Diabetes mellitus termite control service representative insulin use: without termite control service representative use Diabetes mellitus type: type 2 Qualified Code(s): E11.69 - Type 2 diabetes mellitus with other specified complication (6) Anemia: Follow hemoglobin closely Patient reports recent EGD, [place] with no cause of anemia discovered. Status: Acute Additional A&P Information Respiratory failure. Has quite significant secretions this morning. Culture. Broaden antibiotic. Continue coverage for possible pneumonia. Multifactorial respiratory failure. MRSA PCR. Sputum cultures. Pulmonary consult. Attempt to wean off propofol to Precedex. Diuresis attempted yesterday. For now we will hold off, monitor blood pressure, make sure this is stabilizing, perhaps repeat additional Lasix depending on condition. Sacral skin breakdown: Reported seen on nursing examination. Bariatric bed is being requested for her. Continue repositioning. Transaminitis: AST, ALT elevation. Antibiotic is being changed. Possibly related to hypotension. Maintain blood pressures. Wean off pressor as tolerating. Check CK. Attempted to update her but could not reach him. full code Heparin for DVT prophylaxis Attestations Medical Necessity Statement*: Continue admission for assessment management of sepsis, septic shock, respiratory failure Critical Care Time: 45 minutes critical care time spent on assessment management of immediately life-threatening issues including sepsis, septic shock, respiratory failure, management of antibiotics, pressors, assessment of possible source. Coding Level of Care Code Acute Commercial Escrow Assistant for [facility] Fwd Exam Comprehensive Diagnoses Sepsis A41.9 Small bowel obstruction K56.609 Recurrent incisional hernia K43.2 Leukocytosis D72.829 Diabetes mellitus E11.69 Diabetes mellitus complication status: with other specified complication Diabetes mellitus snf insulin use: without termite control service representative use Diabetes mellitus type: type 2 Anemia D64.9
[2020-02-04 10:13] LABS: Creatine Phosphokinase 9521 U/L (26-192)
[2020-02-04] MEDS: propofol 1,000 MG/100 ML INJ 35 MG IV (10:46)
--- NOTE | 2020-02-04 11:20 | US_ITS ---
WS: [id number] RIGHT UPPER QUADRANT ULTRASOUND HISTORY: hepatobiliary COMPARISON: 02/01/2020 Technically difficult evaluation due to body habitus. Liver: 18.1 cm in length. Enlarged liver with coarsened echotexture. Surface of the liver is slightly irregular. No bile duct dilatation. Gallbladder: Well distended gallbladder with stones. No pericholecystic fluid or gallbladder wall thi ckening. CBD: 0.4 cm Pancreas: Normal size and echogenicity. Right kidney: 15.0 cm in length. Poorly visualized kidney. No hydronephrosis or mass is identified on the CT from 02/01/2020. Aorta and IVC: Unremarkable abdominal aorta and IVC. No ascites. US/US abdomen limited [id number] IMPRESSION: 1. Cholelithiasis without evidence for acute cholecystitis. 2. No bile duct dilatation.
[2020-02-04] MEDS: morphine 4 mg/mL SDV 1 mL IVP (12:35)
[2020-02-04] MEDS: ondansetron 2 mg/ML SDV 2 mL 4 MG IVP (12:36)
[2020-02-04] MEDS: dexmedetomidine 400 MCG in sodium chloride 0.9% (100 ml) 100 ML 37.7 MCG IV (13:32)
--- NOTE | 2020-02-04 16:56 | PM.PN ---
Subjective Subjective: Interval history: Today patient was following commands after decreasing sedation. Tolerating spontaneous breathing trial but he is very anxious and asked to increase Precedex 2.8. Plan is to diurese her today and plan for breathing trial and if successful extubation tomorrow morning. Medications: Reviewed: Yes Vitals/I&O/Wt Last Vital Signs Temp 100.5 F H 02/04/20 15:00 Pulse 63 02/04/20 15:00 Resp 20 H 02/04/20 16:05 BP 113/69 02/04/20 15:00 Pulse Ox 96 02/04/20 15:00 02/04/20 02/04/20 02/04/20 06:59 14:59 22:59 Intake Total 656.604 / 4177.606 5120.405 / 1515.405 Output Total 1425 / 2035 665 / 665 Balance -768.396 / -291.283 850.405 / 850.405 Physical Exam Narrative: EXAM NARRATIVE: PHYSICAL EXAM: General: lying in bed, sedated and intubated. HEENT:NCAT, PERRLA, EOMI Neck: Supple Lungs: Clear, Heart: s1/s2, RRR Abd: Obese, transverse surgical incision with clips looked clean, ND, sluggish BS + Extremities: No edema CAREER TECHNICAL COUNSELOR: sedated and limited CAREER TECHNICAL COUNSELOR exam possible. SKIN: no rash Urinary Catheter Management^: Kuo Latex: Cath Placed During This Visit: yes Reason for Continuing Indwelling Catheter: Accurate Measurement of Urinary Output in Critically Ill Patients Urinary Catheter Date of Insertion: 02/01/20 Urinary Catheter Time of Insertion: 22:25 Data : 02/04/20 04:26 02/04/20 04:26 Micro: Microbiology 02/04/20 11:12 Gram Stain - Final Sputum - Endotracheal Tube Aspirate 02/04/20 10:30 Gram Stain - Final Other Source 02/04/20 09:17 Blood Culture - Preliminary Blood SPECIMEN COLLECTED 02/04/20 09:23 Blood Culture - Preliminary Blood SPECIMEN COLLECTED Other data: Labs, investigations, imaging all reviewed in [facility] A&P Assessment and plan (1) Difficult ventilator weaning: Status: Acute (2) Diabetes mellitus: Status: Acute Qualifiers: Diabetes mellitus type: type 2 Diabetes mellitus detention insulin use: without detention use Diabetes mellitus complication status: with other specified complication Qualified Code(s): E11.69 - Type 2 diabetes mellitus with other specified complication (3) Abdominal wall hernia: Status: Acute (4) Pneumatosis of intestines: Status: Acute (5) Status post exploratory laparotomy: Status: Acute (6) Respiratory failure, post-operative: Status: Acute (7) History of DVT (deep vein thrombosis): Status: Acute ASSESSMENT/PLAN:Overall: Ms. Sonya Barragan 54 female with past medical history of diabetes, history of DVT, recurrent incision incisional ventral hernia, morbid obesity admitted for abdominal pain and underwent Exploratory laparotomy with segmental small bowel resection for necrotic segment of small bowel, repair of recurrent incarcerated ventral hernias with mesh, partial panniculectomy and appendectomy on 02/02/[address] Klein. Postoperative respiratory failure requiring mechanical ventilation. NEURO: Sedation with fentanyl, Precedex and propofol -Recommended to taper propofol -Precedex gtt. to facilitate extubation and address anxiety during extubation - continue Spontaneous Awakening trial daily #Postoperative pain -On fentanyl 100 MCG GTT - morphine as needed PULM: #Difficult to wean off ventilator post surgery due to morbid obesity -Currently on CMV 420/14/10/35% and ABG 7.3 5/42/82/20 3/96 % -Chest x-ray improving left lower lobe retrocardiac consolidation and left effusion. Residual small right pleural effusion -PEEP of 10 or more will help prevent further atelectasis -Recommend suctioning and nebulization with Xopenex every 6 hours as needed -Try to keep negative to even fluid balance; if develop or input output is positive recommended to give Lasix 40 mg -Continue with spontaneous awakening trials and breathing trials -Tolerated breathing trial today on pressure support 10 and PEEP 10 but was very anxious -Reevaluate tomorrow morning and if passes breathing trial and gets extubated would recommend BiPAP 20/10 -Overall I feel like patient is ready to be extubated to BiPAP tomorrow morning; provided 1. she does not develop abdominal compartment syndrome overnight 2. Good response to antibiotics without worsening of leukocytosis or temperature spikes and stable vitals with no or minimal pressor requirement and 3. Good urine output with negative to even fluid balance CVS: -Overnight required Levophed; currently tapered off -Maps are soft between 65-70 -Monitor blood pressure and heart rates -Monitor temperature spikes, WBC, abdominal pressures to rule out abdominal compartment syndrome as cause of shock -Lactic acid 1 GI: #Recurrent ventral hernia-s/p exploratory laparotomy and repair, small bowel segment resection for necrosis, partial panniculectomy #Worsening LFTs -likely due to hypoperfusion -Diet-n.p.o. -Surgical scar looks clean -Famotidine daily for GI prophylaxis -LFTs post surgery-monitor LFTs and avoid hepatotoxic medications -MELONY drain 100 cc -Monitor bladder pressures and if greater than 12 suspect abdominal compartment syndrome -Surgery follow-up -Abdominal ultrasound cholelithiasis without evidence for acute cholecystitis. -Monitor LFTs RENAL: #Elevated CK-rhabdomyolysis -likely postsurgical -BUN/creatinine normal range -I/O/N -13 L/4.4 L /+9.4 L since admission -I/O/N - 1.7 L / 2.0 L - 300ml last 24 hours -Monitor CK, renal functions and electrolytes and supplement as needed -Monitor input output and try to keep negative to even; -She will have her I&O positive please give Lasix 40 mg HEM: #Postoperative H and H dropped from 10 to 8.4 likely dilutional -monitor for internal bleeding #History of DVT -obviously at high risk for developing DVT/PE due to postop status -Monitor H&H and transfuse to keep H&H greater than 7/ -DVT prophylaxis Heparin 5000 sC -If drop in H&H noted; DC heparin and evaluate for internal bleeding repeat CT abdomen pelvis ENDO: #Diabetes -Sugars well controlled -Monitor FSBS and patient is on scale coverage ID: #Fever spikes-postoperative -WBC 11.2 K --> 14K -Currently covered with vancomycin and imipenem -Follow-up blood cultures, urine cultures, transtracheal sputum cultures, MELONY drain cultures and broaden coverage to vancomycin and meropenem -Monitor temperature and WBC Code Status: Full code Disposition: Remains in ICU Critically ill: Remains critically ill MD discussed with: Dr. Lara, RN and RT taking care of the patient Family: Updated ICU CHECKLIST: Problem list updated Verbal orders reviewed and signed Analgesia: Fentanyl, morphine Glycemic Control: Insulin scale coverage Nutrition: N.p.o. for now Restraint Renewal (within 24 hrs): Yes Ulcer Prophylaxis: H2 jose Chemical Thromboprophylaxis: Prophylaxis: Heparin Mechanical Thromboprophylaxis: SCDs Need for Kuo catheter: Input output monitoring Attestations Medical Necessity Statement*: Respiratory failure and difficult extubation in morbidly obese patient who underwent exploratory laparotomy for recurrent ventral hernia and small bowel necrosis Coding Level of Care Code Established Pt Acute Payer Specialist for [facility] Fwd Patient Type Established History Comprehensive Exam Comprehensive Medical Decision Making High Complexity Diagnoses Difficult ventilator weaning Z99.11 Diabetes mellitus E11.69 Diabetes mellitus type: type 2 Diabetes mellitus buttermaker continuous churn insulin use: without detention use Diabetes mellitus complication status: with other specified complication Abdominal wall hernia K43.9 Pneumatosis of intestines K63.89 Status post exploratory laparotomy Z98.890 Respiratory failure, post-operative J95.821 History of DVT (deep vein thrombosis) Z86.718 Time Spent (min) 45
[2020-02-04 18:07] LABS: Glucose Point of Care 141 mg/dL (70-110)
--- NOTE | 2020-02-04 18:49 | PC.NURSE ---
Rx informed this nurse there was an unscanned bag of fentanyl from 02/03/20, bag of fentanyl 50 mcg/ml 100 ml bag hung Approximately 0100 02/03/20
[2020-02-04 20:16] LABS: Glucose Point of Care 134 mg/dL (70-110)
[2020-02-04 20:16] LABS: Glucose Point of Care 124 mg/dL (70-110)
[2020-02-04 20:52] LABS: Glucose Point of Care 141 mg/dL (70-110)
[2020-02-05] VITALS (33 sets, daily range): BP systolic 101–150; BP diastolic 57–112; PULSE 59–96; RESP 18–29; TEMP 37.8; O2SAT 92–100
[2020-02-05] MEDS: dexmedetomidine 400 MCG in sodium chloride 0.9% (100 ml) 100 ML 42.5 MCG IV (01:08)
--- NOTE | 2020-02-05 01:09 | PC.NURSE ---
250 ml bag of Precedex infusing at time of new order to increase max dose to 1 mcg/kg/hr, new 100 ml bag hung at this time as previous 250 ml bag ran out
[2020-02-05] MEDS: heparin 5,000 unit/mL INJ 1 mL 5000 UNIT SUBCUT ×3 (02:10→18:02)
--- NOTE | 2020-02-05 02:40 | PC.NURSE ---
refused to be turned to R side
[2020-02-05] MEDS: HYDROmorphone 1 mg/mL INJ 1 mL IVP ×6 (02:43→23:38)
--- NOTE | 2020-02-05 02:46 | PC.NURSE ---
new order restless, trying to pull at ET tube and lines, Dr. Hanks notified, gave order to increase PRecedex max to 1 mcg/kg/hr, and PRN Dilaudid Restless, shook head yes to being in pain PRN Dilaudid administered per order
[2020-02-05] MEDS: levalbuterol 0.63 mg/3 mL Neb INHALATION ×3 (03:36→21:30)
--- NOTE | 2020-02-05 03:41 | PC.NURSE ---
placed on CMV vent mode per RT
--- NOTE | 2020-02-05 04:23 | PC.NURSE ---
Refused Bed bath at this time
[2020-02-05 04:43] LABS: ABG PCO2 40.6 mmHg (35-45); ABG PH Result 7.36 (7.35-7.45); Arterial Blood Gas Hematocrit 29.5 % (37-47); Base Excess ABG -2.5 mmol/L (-2.0-2.0); Blood Gas Allen Test Pos; Blood Gas Sample Type Arterial; HCO3 ABG 22.8 mmol/L (22-26); PO2 ABG 92.5 mmHg (80.0-100.0)
[2020-02-05 04:44] LABS: Blood Gas Operator Identificat JB; Blood Gas Sample Site Radial, right; Blood Gas Tidal Volume 0.42; Oxygen Device VENT
[2020-02-05] MEDS: famotidine 20 mg/2 mL INJ IVP ×2 (05:16→17:59)
[2020-02-05 06:50] LABS: Basophils # 0.1 10^3/uL (0.0-0.1); Basophils % 0.8 %; Eosinophils # 0.3 10^3/uL (0.0-0.8); Eosinophils % 2.4 %; Hematocrit 28.9 % (37.0-47.0); Hemoglobin 8.4 g/dL (11.5-15.3); Lymphocytes % 8.1 %; Mean Corpuscular HGB Conc 29.1 g/dL (30.0-36.0); Mean Corpuscular Hemoglobin 24.2 pg (28.0-34.0); Mean Corpuscular Volume 83.3 fL (81-99); Mean Platelet Volume 9.7 fL (7.4-10.4); Monocytes # 1.2 10^3/uL (0.2-0.9); Monocytes % 9.8 %; Neutrophils % 78.2 %; Nucleated Red Blood Cells % 0.3 %; Platelet Count 207 10^3/cmm (130-400); Red Blood Count 3.47 10^6/uL (4.1-5.3); Red Cell Distribution Width 21.6 % (12.1-15.1); White Blood Count 11.9 10^3/uL (4.0-10.0)
--- NOTE | 2020-02-05 06:53 | PC.NURSE ---
abdominal pressure 4
[2020-02-05 07:06] LABS: Alanine Aminotransferase 47 U/L (0-33); Albumin Level 2.5 g/dL (3.5-5.2); Alkaline Phosphatase 71 IU/L (35-105); Anion Gap 13.7 (5-19); Aspartate Amino Transferase 130 U/L (0-32); Blood Urea Nitrogen 24 mg/dL (6-20); Calcium 8.4 mg/dL (8.5-10.5); Carbon Dioxide 21 mmol/L (22-29); Chloride 108 mmol/L (98-107); Globulin 3.7 g/dL (1.3-4.6); Glomerular Filtration Rate 104.2 mL/min (90-130); Glucose 145 mg/dL (65-115); Osmolality Calculated 293 mOsm/kg (285-295); Potassium 4.7 mmol/L (3.5-5.1); Sodium 138 mmol/L (136-145); Total Bilirubin 0.3 mg/dL (0.15-1.2); Total Protein 6.2 g/dL (6.6-8.7)
[2020-02-05 08:49] LABS: Creatine Phosphokinase 5959 U/L (26-192)
--- NOTE | 2020-02-05 09:10 | PM.PN ---
Subjective Subjective: Interval history: Sedation had been weaned down. Currently on Precedex. She appears calm, wakes up to answer questions. Denies discomfort. Is gesturing that she wants ET tube to be taken out. Denies abdominal pain. Vitals/I&O/Wt Last Vital Signs Temp 100.1 F H 02/05/20 08:00 Pulse 64 02/05/20 08:00 Resp 20 H 02/05/20 08:00 BP 113/75 02/05/20 08:00 Pulse Ox 97 02/05/20 08:00 02/04/20 02/05/20 02/05/20 22:59 06:59 14:59 Intake Total 367.165 / 1895.570 796.835 / 2692.405 Output Total 315 / 980 425 / 1405 50 / 50 Balance 52.165 / 915.570 371.835 / 1287.405 -50 / -50 Physical Exam Const: COMMON NORMALS: no acute distress NUTRITIONAL APPEARANCE: obese morbidly obese OTHER: Intubated. Calm, responsive to voice. HENMT: COMMON NORMALS: oropharynx normal Neck/C-Spine: COMMON NORMALS: no JVD (No obvious JVD, but very thick neck.) Resp: COMMON NORMALS: normal respiratory effort and clear to auscultation bilaterally AUSCULTATION: clear to auscultation bilaterally and rhonchi left lower Cardio: COMMON NORMALS: no JVD (No obvious JVD, but very thick neck.), regular rhythm, S1 normal heart sound present, S2 normal heart sound present and No murmurs present (Cardio) RHYTHM: regular rhythm HEART SOUNDS: S1 normal heart sound present and S2 normal heart sound present GI: COMMON NORMALS: Normal to inspection, nondistended, normoactive bowel sounds present and non-tender AUSCULTATION: Yes Hypoactive bowel sounds present OTHER: Abdomen is very large. Wound across epigastrium appears clean, without surrounding erythema, no drainage or bleeding. Extremity: COMMON NORMALS: no joint enlargement GENERAL: Yes edema (Very large extremities. Mild pedal edema.) Neuro: COMMON NORMALS: moves all extremities Skin: COMMON NORMALS: no rashes or lesions noted GENERAL SKIN EXAM: no rashes or lesions noted Urinary Catheter Management^: Kuo Latex: Cath Placed During This Visit: yes Reason for Continuing Indwelling Catheter: Accurate Measurement of Urinary Output in Critically Ill Patients Urinary Catheter Date of Insertion: 02/01/20 Urinary Catheter Time of Insertion: 22:25 Data : 02/05/20 06:30 02/05/20 06:30 Micro: Microbiology 02/04/20 10:30 Urine Culture - Preliminary Urine Catheterized 02/04/20 11:12 Gram Stain - Final Sputum - Endotracheal Tube Aspirate 02/04/20 10:30 Gram Stain - Final Other Source 02/04/20 09:17 Blood Culture - Preliminary Blood SPECIMEN COLLECTED 02/04/20 09:23 Blood Culture - Preliminary Blood SPECIMEN COLLECTED A&P Assessment and plan (1) Respiratory failure, post-operative: We will give a dose of 40 mg Lasix. She is a little bit in positive balance about half liter overnight. Otherwise fever appears to be improving. Leukocytosis improving. Weaned off pressor. Weaned well off propofol. Currently only on Precedex. Ventilator weaning trial today. If does well, possible extubation. Per pulmonology recommendation BiPAP 30/11. Continue antibiotics for possible pneumonia. Status: Acute (2) Sepsis: Septic shock better. Weaned off Levophed. Maintain blood pressures. Fever better overnight, this morning temperature 100.1, but was afebrile through most of the night. Weaned off propofol, currently only on Precedex. Follow panculture results. So far nothing on Gram stain. Continue antibiotics with Primaxin, vancomycin. Monitor intra-abdominal pressures. Yesterday reported 20 per hospice nurse. Per discussion with the surgery higher pressures than normal may be anticipated also due to her body habitus. Status: Acute (3) Small bowel obstruction: Postoperative ileus. Per surgery. Sluggish bowel sounds present. No BM. Status post exploratory laparotomy, segmental small bowel resection for necrotic bowel, repair of incarcerated ventral hernia with mesh and partial panniculectomy NG in place. Minimal gastric drainage. Await return of bowel function Status: Acute (4) Recurrent incisional hernia: See above Status: Acute (5) Leukocytosis: As above. Status: Acute (6) Diabetes mellitus: Sliding scale insulin Status: Acute Qualifiers: Diabetes mellitus type: type 2 Diabetes mellitus alf insulin use: without alf use Diabetes mellitus complication status: with other specified complication Qualified Code(s): E11.69 - Type 2 diabetes mellitus with other specified complication (7) Anemia: Follow hemoglobin closely Patient reports recent EGD, [place] with no cause of anemia discovered. Status: Acute Additional A&P Information Sacral skin breakdown: Reported seen on nursing examination. Continue repositioning. Transaminitis: Little bit better. Blood pressure stabilized. Rhabdomyolysis improving. Monitor. Rhabdomyolysis: Improving. CK down to 5959. Monitor renal function. Could not reach by phone for update. full code Heparin for DVT prophylaxis Attestations Medical Necessity Statement*: Continue admission for assessment management of improving sepsis, respiratory failure, postoperative management after necrotic bowel resection after incarcerated hernia, incidental appendectomy and partial panniculectomy with underlying morbid obesity, diabetes, and a number of additional comorbidities. Coding Level of Care Code Acute Data Collection Specialist for [facility] Fwd Diagnoses Respiratory failure, post-operative J95.821 Sepsis A41.9 Small bowel obstruction K56.609 Recurrent incisional hernia K43.2 Leukocytosis D72.829 Diabetes mellitus E11.69 Diabetes mellitus type: type 2 Diabetes mellitus alf insulin use: without alf use Diabetes mellitus complication status: with other specified complication Anemia D64.9
--- NOTE | 2020-02-05 09:48 | PC.CHAP ---
Pastoral Care Encounter/Spiritual Assessment Type of Contact [] Declined armature and rotor winder visit [] Patient/Family/Request visit [] Outpatient visit [] Follow-up visit [] Physician referral [] Code/Alert [] Routine visit [] Staff referral [] Actively dying [] Patient sleeping [] Family support [] [] Out of room [] Palliative care [] [] Receiving care in room [] Pre-surgical visit [] Trauma [] Long length of stay [x] ICU visit [] Other: Relational/Emotional Strength [] Patient feels connected with others/family/visitors/staff [] Distress [] Loneliness/isolation [] Abandonment Spirituality of Patient [] Person of Eufemia [] Attends Yazdanism of their Eufemia [] Believes in Prayer [] Reads Bible or Buddhist materials [] There are Spiritual issues to be addressed Cloth Grader Supervisor Interventions [x] Prayer [] Active listening [] Non-anxious presence [] Spiritual/emotional support [] Crisis/trauma care [] Spiritual counseling [] Bereavement support [] Provided bereavement packet [] Provided Bible/devotional materials [] Provided toy/stuffed animal, coloring book to patient or family member [] Provided Communion [] Anointing/[place] [] Salvation [x] Completed spiritual assessment [] Other: Impact on Illness or Injury [] Angry [] Fearful [] Anxious [] Often cries [] Exhaustion [] Unable to work [] Unable to attend jainism [] Unable to walk/stand [] Unable to read [] Unable to drive [] Unable to eat/drink [] Unable to sleep [] Unable to be with family [] Patient intubated [] Other: Summary Time spent with patient
[2020-02-05] MEDS: FUROsemide 10 mg/mL SDV 4mL 40 MG IVP (10:46)
--- NOTE | 2020-02-05 10:55 | PM.PN ---
Subjective Subjective: Interval history: The patient remains intubated but is very arousable. It sounds like plans for extubation may be carried out today. Vitals/I&O/Wt Last Vital Signs Temp 100.1 F H 02/05/20 08:00 Pulse 62 02/05/20 09:00 Resp 20 H 02/05/20 08:00 BP 116/75 02/05/20 09:00 Pulse Ox 98 02/05/20 09:00 02/04/20 02/05/20 02/05/20 22:59 06:59 14:59 Intake Total 367.165 / 2692.405 796.835 / 2692.405 Output Total 315 / 1405 425 / 1405 50 / 50 Balance 52.165 / 1287.405 371.835 / 1287.405 -50 / -50 Physical Exam Narrative: EXAM NARRATIVE: Bowel sounds are much improved today. The incision looks excellent. Urinary Catheter Management^: Kuo Latex: Cath Placed During This Visit: yes Reason for Continuing Indwelling Catheter: Accurate Measurement of Urinary Output in Critically Ill Patients Urinary Catheter Date of Insertion: 02/01/20 Urinary Catheter Time of Insertion: : Data : 02/05/20 06:30 02/05/20 06:30 Micro: Microbiology 02/04/20 11:12 Gram Stain - Final Sputum - Endotracheal Tube Aspirate Sputum Culture - Preliminary 02/04/20 09:17 Blood Culture - Preliminary Blood NEGATIVE TO DATE 02/04/20 09:23 Blood Culture - Preliminary Blood NEGATIVE TO DATE 02/04/20 10:30 Gram Stain - Final Other Source Body Fluid Culture - Preliminary 02/04/20 10:30 Urine Culture - Preliminary Urine Catheterized A&P Assessment and plan (1) Recurrent incisional hernia: Status post reduction and repair of an incarcerated recurrent ventral hernia 02/02/2020. The patient unfortunately had an incarcerated and necrotic segment of small bowel and underwent a small bowel resection in addition to an incidental appendectomy and partial panniculectomy. Continue ICU management. Plan to discontinue nasogastric tube upon return of bowel function. Status: Acute (2) Small bowel obstruction: Status post reduction and repair of incarcerated recurrent ventral hernias on 02/02/2020. Status: Acute Attestations Medical Necessity Statement*: See admitting service's notation. Coding Level of Care Code Acute Payroll Machine Operator for [facility] Fwd Diagnoses Recurrent incisional hernia K43.2 Small bowel obstruction K56.609
[2020-02-05 12:11] LABS: Glucose Point of Care 132 mg/dL (70-110)
[2020-02-05 12:11] LABS: Glucose Point of Care 127 mg/dL (70-110)
--- NOTE | 2020-02-05 16:27 | PC.NURSE ---
1200-- EXTUBATED BY RT. PLACED ON NC. NG LEFT IN PLACE. PT C/O SEVERE BACK PAIN, PT ORDERED TO EVAL & TREAT. AT BEDSIDE.
[2020-02-05 17:26] LABS: Glucose Point of Care 101 mg/dL (70-110)
[2020-02-05] MEDS: acetaminophen 325 mg Tablet 650 MG PO (19:27)
[2020-02-05 20:23] LABS: Glucose Point of Care 94 mg/dL (70-110)
[2020-02-05] MEDS: ondansetron 2 mg/ML SDV 2 mL 4 MG IVP (23:48)
[2020-02-06] VITALS (18 sets, daily range): BP systolic 114–127; BP diastolic 65–80; PULSE 75–101; RESP 16–26; TEMP 37.1–37.3; O2SAT 89–100
[2020-02-06] MEDS: HYDROmorphone 1 mg/mL INJ 1 mL IVP ×3 (01:16→09:31)
[2020-02-06] MEDS: heparin 5,000 unit/mL INJ 1 mL 5000 UNIT SUBCUT ×3 (01:32→17:56)
[2020-02-06] MEDS: morphine 4 mg/mL SDV 1 mL IVP ×3 (04:02→17:50)
[2020-02-06] MEDS: famotidine 20 mg/2 mL INJ IVP ×2 (05:20→17:53)
[2020-02-06] MEDS: HYDROmorphone 1 mg/mL INJ 1 mL 0.4 MG IM (05:37)
--- NOTE | 2020-02-06 05:37 | PC.NURSE ---
Addendum entered by Marily Estevez RN 02/07/20 02:32: Witnessed waste of 0.6 mg dilaudid by Piper Armenta RN on 02/06/20 at 0537 Original Note: DILAUDID WASTE wasted 0.6 mg dilaudid with Anthony Estevez RN
--- NOTE | 2020-02-06 08:01 | PM.PN ---
Subjective Subjective: Interval history: Patient is extubated and nasogastric tube is out. She is tolerating clear liquids and is passing flatus. Vitals/I&O/Wt Last Vital Signs Temp 100.1 F H 02/05/20 08:00 Pulse 81 02/06/20 06:00 Resp 18 02/06/20 06:00 BP 114/80 02/06/20 06:00 Pulse Ox 95 02/06/20 06:00 02/05/20 02/06/20 02/06/20 22:59 06:59 14:59 Intake Total 3944 / 5394 1100 / 5394 Output Total 1430 / 3400 Balance 3944 / 1993 -330 / 1993 Physical Exam Narrative: EXAM NARRATIVE: Incision looks good. Bowel sounds are present. The patient has some serous/serosanguineous fluid in the drain bulb. Urinary Catheter Management^: Kuo Latex: Cath Placed During This Visit: yes Reason for Continuing Indwelling Catheter: Accurate Measurement of Urinary Output in Critically Ill Patients Urinary Catheter Date of Insertion: 02/01/20 Urinary Catheter Time of Insertion: :25 Data : 02/05/20 06:30 02/05/20 06:30 Micro: Microbiology 02/04/20 11:12 Gram Stain - Final Sputum - Endotracheal Tube Aspirate Sputum Culture - Preliminary 02/04/20 09:17 Blood Culture - Preliminary Blood NEGATIVE TO DATE 02/04/20 09:23 Blood Culture - Preliminary Blood NEGATIVE TO DATE 02/04/20 10:30 Gram Stain - Final Other Source Body Fluid Culture - Preliminary 02/04/20 10:30 Urine Culture - Preliminary Urine Catheterized A&P Assessment and plan (1) Recurrent incisional hernia: Status post reduction and repair of an incarcerated recurrent ventral hernia 02/02/2020. The patient unfortunately had an incarcerated and necrotic segment of small bowel and underwent a small bowel resection in addition to an incidental appendectomy and partial panniculectomy. No new labs today. Recheck labs tomorrow morning. Continue ICU management. Physical therapy has been consulted; the patient's size is going to make her recovery very difficult but she can transfer to the floor when felt able. Status: Acute (2) Small bowel obstruction: Status post reduction and repair of incarcerated recurrent ventral hernias with segmental small bowel resection on 02/02/2020. Status: Acute Attestations Medical Necessity Statement*: See admitting service's notation. Coding Level of Care Code Acute Operations Research Engineer for [facility] Fwd Diagnoses Recurrent incisional hernia K43.2 Small bowel obstruction K56.609
--- NOTE | 2020-02-06 09:26 | PC.NURSE ---
recd. up in recliner, extubated yesterday. alert and oriented.
[2020-02-06] MEDS: levalbuterol 0.63 mg/3 mL Neb INHALATION ×3 (10:11→20:03)
--- NOTE | 2020-02-06 10:50 | PC.NURSE ---
p.t. in this am. pt. stood at chair side. was incontient of stool, cleaned. noted large blisters on spinal area of low back. optifoam placed. (2).
--- NOTE | 2020-02-06 11:05 | PC.NURSE ---
0700 recd thi am w/o iv.
--- NOTE | 2020-02-06 11:05 | PC.NURSE ---
0730 after 2nd stick 22ga. to right forearm, good blood return secured with veniguard and tape.
[2020-02-06 14:06] LABS: Basophils # 0.1 10^3/uL (0.0-0.1); Basophils % 0.8 %; Eosinophils # 0.3 10^3/uL (0.0-0.8); Eosinophils % 2.7 %; Hematocrit 27.5 % (37.0-47.0); Hemoglobin 8.1 g/dL (11.5-15.3); Lymphocytes % 9.7 %; Mean Corpuscular HGB Conc 29.5 g/dL (30.0-36.0); Mean Corpuscular Hemoglobin 24.3 pg (28.0-34.0); Mean Corpuscular Volume 82.6 fL (81-99); Mean Platelet Volume 9.4 fL (7.4-10.4); Monocytes # 0.9 10^3/uL (0.2-0.9); Monocytes % 8.5 %; Neutrophils # 8.08 10^3/uL (1.8-7.7); Neutrophils % 76.5 %; Nucleated Red Blood Cells % 0.2 %; Platelet Count 262 10^3/cmm (130-400); Red Blood Count 3.33 10^6/uL (4.1-5.3); Red Cell Distribution Width 21.1 % (12.1-15.1); White Blood Count 10.6 10^3/uL (4.0-10.0)
[2020-02-06 14:37] LABS: Alanine Aminotransferase 42 U/L (0-33); Albumin Level 2.7 g/dL (3.5-5.2); Alkaline Phosphatase 74 IU/L (35-105); Anion Gap 13.9 (5-19); Aspartate Amino Transferase 86 U/L (0-32); Blood Urea Nitrogen 15 mg/dL (6-20); Calcium 8.6 mg/dL (8.5-10.5); Carbon Dioxide 24 mmol/L (22-29); Chloride 102 mmol/L (98-107); Globulin 3.5 g/dL (1.3-4.6); Glomerular Filtration Rate 128.6 mL/min (90-130); Glucose 110 mg/dL (65-115); Osmolality Calculated 283 mOsm/kg (285-295); Potassium 3.9 mmol/L (3.5-5.1); Sodium 136 mmol/L (136-145); Total Bilirubin 0.3 mg/dL (0.15-1.2); Total Protein 6.2 g/dL (6.6-8.7)
[2020-02-06 15:05] LABS: Creatine Phosphokinase 2276 U/L (26-192)
[2020-02-06] MEDS: acetaminophen 325 mg Tablet 650 MG PO (15:53)
--- NOTE | 2020-02-06 18:11 | PC.NURSE ---
transferred to [facility] per bariatric chair which she has set in all day. was up to bsc with assist of and staff and walker. large bm yellow unformed.soft. glasses and belongings transferred with her.and
[2020-02-06 18:36] LABS: Glucose Point of Care 109 mg/dL (70-110)
[2020-02-06 18:37] LABS: Glucose Point of Care 92 mg/dL (70-110)
[2020-02-06 18:37] LABS: Glucose Point of Care 93 mg/dL (70-110)
--- NOTE | 2020-02-06 20:36 | PM.PN ---
Subjective Subjective: Interval history: She is doing better all things considering. She is not looking forward to standing up with physical therapy. She is having some abdominal pain, although it is tolerable. States her breathing is comfortable with nasal cannula. Denies chest pain or pressure. When asked if passing flatus exclaims Oh yeah! . Vitals/I&O/Wt Last Vital Signs Temp 98.8 F 02/06/20 19:37 Pulse 82 02/06/20 20:04 Resp 18 02/06/20 20:04 BP 115/69 02/06/20 19:37 Pulse Ox 93 02/06/20 20:04 02/06/20 02/06/20 02/06/20 06:59 14:59 22:59 Intake Total 1100 / 5394 440 / 440 1100 / 1540 Output Total 1430 / 3400 750 / 750 Balance -1993 440 / 440 350 / 790 Physical Exam Const: COMMON NORMALS: no acute distress NUTRITIONAL APPEARANCE: obese morbidly obese OTHER: Sitting up in chair. Nasal cannula on. Appears comfortable. HENMT: COMMON NORMALS: oropharynx normal Neck/C-Spine: COMMON NORMALS: no JVD (No obvious JVD, but very thick neck.) Resp: COMMON NORMALS: normal respiratory effort and clear to auscultation bilaterally AUSCULTATION: clear to auscultation bilaterally and rhonchi left lower Cardio: COMMON NORMALS: no JVD (No obvious JVD, but very thick neck.), regular rhythm, S1 normal heart sound present, S2 normal heart sound present and No murmurs present (Cardio) RHYTHM: regular rhythm HEART SOUNDS: S1 normal heart sound present and S2 normal heart sound present GI: COMMON NORMALS: Normal to inspection, nondistended, normoactive bowel sounds present and non-tender AUSCULTATION: Yes Hypoactive bowel sounds present OTHER: Abdomen is very large. Wound clean, without surrounding erythema, no drainage or bleeding. Extremity: COMMON NORMALS: no joint enlargement GENERAL: Yes edema (Very large extremities. Mild pedal edema.) Neuro: COMMON NORMALS: moves all extremities Skin: COMMON NORMALS: no rashes or lesions noted GENERAL SKIN EXAM: no rashes or lesions noted Urinary Catheter Management^: Kuo Latex: Cath Placed During This Visit: yes Reason for Continuing Indwelling Catheter: Accurate Measurement of Urinary Output in Critically Ill Patients Urinary Catheter Date of Insertion: 02/01/20 Urinary Catheter Time of Insertion: 22:25 Data : 02/06/20 13:33 02/06/20 13:33 Micro: Microbiology 02/04/20 10:30 Gram Stain - Final Other Source Body Fluid Culture - Preliminary 02/04/20 11:12 Gram Stain - Final Sputum - Endotracheal Tube Aspirate Sputum Culture - Final 02/04/20 10:30 Urine Culture - Final Urine Catheterized A&P Assessment and plan (1) Respiratory failure, post-operative: She is doing well after extubation yesterday. On nasal cannula with a few liters. Later today appears to be even weaning down to room air. Continue weaning down oxygen as tolerating. Given extra dose of Lasix this morning. Monitor volume status. Move out of ICU. Continue antibiotics for possible pneumonia. Status: Acute (2) Sepsis: Resolving. Leukocytosis normalizing. Now afebrile since 8 AM on 02/04. Septic shock resolved. Follow panculture results. So far nothing on Gram stain. Urine culture without growth. Sputum culture unremarkable. Continue antibiotics with Primaxin, vancomycin. Urinary bladder pressures were somewhat elevated, but no signs of compartment syndrome. Monitor. Status: Acute (3) Small bowel obstruction: Postoperative ileus appears to be improving. She is passing flatus. Per surgery. Diet advanced today to clear liquid. Status post exploratory laparotomy, segmental small bowel resection for necrotic bowel, repair of incarcerated ventral hernia with mesh and partial panniculectomy Status: Acute (4) Recurrent incisional hernia: See above Status: Acute (5) Leukocytosis: As above. Status: Acute (6) Diabetes mellitus: Sliding scale insulin Status: Acute Qualifiers: Diabetes mellitus type: type 2 Diabetes mellitus termite exterminator helper insulin use: without termite exterminator helper use Diabetes mellitus complication status: with other specified complication Qualified Code(s): E11.69 - Type 2 diabetes mellitus with other specified complication (7) Anemia: Appears stable so far. Follow hemoglobin closely Patient reports recent EGD, [place] with no cause of anemia discovered. Status: Acute Additional A&P Information Sacral skin breakdown: Reported seen on nursing examination. Continue repositioning. Physical deconditioning: Encouraged her to work with PT. Consideration may be given to shelter facility placement depending on how well she recovers. If does well would benefit from home exercise program. Transaminitis: Little bit better. Blood pressure stabilized. Rhabdomyolysis improving. Monitor. Rhabdomyolysis: Improving. Monitor renal function. Could not reach by phone for update. full code Heparin for DVT prophylaxis Attestations Medical Necessity Statement*: Continue admission for assessment management of improving respiratory failure, sepsis, status post resection of bowel, with necrotic segment, following incarcerated hernia, appendectomy, partial panniculectomy in the setting of diabetes, morbid obesity, and other comorbidities. Coding Level of Care Code Acute Broadband Engineer for [facility] Fwd Diagnoses Respiratory failure, post-operative J95.821 Sepsis A41.9 Small bowel obstruction K56.609 Recurrent incisional hernia K43.2 Leukocytosis D72.829 Diabetes mellitus E11.69 Diabetes mellitus type: type 2 Diabetes mellitus group home insulin use: without group home use Diabetes mellitus complication status: with other specified complication Anemia D64.9
[2020-02-06 21:05] LABS: Glucose Point of Care 102 mg/dL (70-110)
[2020-02-07] VITALS (15 sets, daily range): BP systolic 112–130; BP diastolic 72–77; PULSE 17–90; RESP 16–24; TEMP 36.8–37.6; O2SAT 91–97
[2020-02-07] MEDS: morphine 4 mg/mL SDV 1 mL IVP (02:03)
[2020-02-07] MEDS: heparin 5,000 unit/mL INJ 1 mL 5000 UNIT SUBCUT ×3 (02:04→17:26)
[2020-02-07 05:34] LABS: Alanine Aminotransferase 40 U/L (0-33); Albumin Level 2.6 g/dL (3.5-5.2); Alkaline Phosphatase 79 IU/L (35-105); Anion Gap 12.9 (5-19); Aspartate Amino Transferase 66 U/L (0-32); Blood Urea Nitrogen 12 mg/dL (6-20); Calcium 8.5 mg/dL (8.5-10.5); Carbon Dioxide 24 mmol/L (22-29); Chloride 104 mmol/L (98-107); Globulin 3.3 g/dL (1.3-4.6); Glomerular Filtration Rate 128.6 mL/min (90-130); Glucose 95 mg/dL (65-115); Osmolality Calculated 284 mOsm/kg (285-295); Potassium 3.9 mmol/L (3.5-5.1); Sodium 137 mmol/L (136-145); Total Bilirubin 0.3 mg/dL (0.15-1.2); Total Protein 5.9 g/dL (6.6-8.7)
[2020-02-07 05:53] LABS: Creatine Phosphokinase 1176 U/L (26-192)
--- NOTE | 2020-02-07 06:13 | PM.PN ---
Subjective Subjective: Interval history: The patient is now on a regular medical floor. She continues to pass flatus. She still on a clear liquid diet. She is very anxious to go home. Vitals/I&O/Wt Last Vital Signs Temp 98.9 F 02/07/20 04:00 Pulse 17 L 02/07/20 04:00 Resp 17 02/07/20 04:00 BP 130/77 02/07/20 04:00 Pulse Ox 94 02/07/20 04:00 02/06/20 02/06/20 02/07/20 14:59 22:59 06:59 Intake Total 440 / 2640 2200 / 2640 Output Total 765 / 1365 600 / 1365 Balance 440 / 1275 1435 / 1275 -600 / 1275 Physical Exam Narrative: EXAM NARRATIVE: Bowel sounds are present. The incision looks good. The patient is still draining small amounts of serous/serosanguineous fluid from her Chandana drain. Urinary Catheter Management^: Kuo Latex: Cath Placed During This Visit: yes Reason for Continuing Indwelling Catheter: Accurate Measurement of Urinary Output in Critically Ill Patients Urinary Catheter Date of Insertion: 02/01/20 Urinary Catheter Time of Insertion: 22:25 Data : 02/06/20 13:33 02/07/20 04:45 Micro: Microbiology 02/04/20 10:30 Gram Stain - Final Other Source Body Fluid Culture - Preliminary 02/04/20 11:12 Gram Stain - Final Sputum - Endotracheal Tube Aspirate Sputum Culture - Final 02/04/20 10:30 Urine Culture - Final Urine Catheterized A&P Assessment and plan (1) Recurrent incisional hernia: Status post reduction and repair of an incarcerated recurrent ventral hernia 02/02/2020. The patient unfortunately had an incarcerated and necrotic segment of small bowel and underwent a small bowel resection in addition to an incidental appendectomy and partial panniculectomy. The patient's bowel function has returned. I will advance her diet. I told the patient that we need to get her Kuo catheter out and see how she does before we even consider discharge. There was some discussion about diuresing the patient several days ago; I will leave care of the Kuo catheter/fluid status to the hospitalist team. The patient is very anxious to go home, but I have concerns about her being able to take care of herself even with the help of her and 19-year-old son at home. Nursing is concerned about her overall lack of motivation to get up, etc., but I cannot imagine that her activity level here in the hospital is much different than it is at any other time at home. Status: Acute (2) Small bowel obstruction: Status post reduction and repair of incarcerated recurrent ventral hernias with segmental small bowel resection on 02/02/2020. Status: Acute Attestations Medical Necessity Statement*: See admitting service's notation. Coding Level of Care Code Acute Primer Expeditor And Drier for [facility] Diagnoses Recurrent incisional hernia K43.2 Small bowel obstruction K56.609
[2020-02-07 06:30] LABS: Glucose Point of Care 100 mg/dL (70-110)
[2020-02-07 07:03] LABS: Basophils # 0.1 10^3/uL (0.0-0.1); Basophils % 1.1 %; Eosinophils # 0.4 10^3/uL (0.0-0.8); Eosinophils % 3.9 %; Hematocrit 27.8 % (37.0-47.0); Hemoglobin 8.3 g/dL (11.5-15.3); Lymphocytes # 1.1 10^3/uL (0.8-4.8); Mean Corpuscular HGB Conc 29.9 g/dL (30.0-36.0); Mean Corpuscular Hemoglobin 24.3 pg (28.0-34.0); Mean Corpuscular Volume 81.3 fL (81-99); Mean Platelet Volume 9.3 fL (7.4-10.4); Monocytes # 0.9 10^3/uL (0.2-0.9); Monocytes % 8.8 %; Neutrophils # 7.27 10^3/uL (1.8-7.7); Neutrophils % 71.9 %; Nucleated Red Blood Cells % 0.4 %; Platelet Count 282 10^3/cmm (130-400); Red Blood Count 3.42 10^6/uL (4.1-5.3); Red Cell Distribution Width 21.1 % (12.1-15.1); White Blood Count 10.1 10^3/uL (4.0-10.0)
[2020-02-07] MEDS: famotidine 20 mg/2 mL INJ IVP ×2 (07:53→18:12)
[2020-02-07] MEDS: levalbuterol 0.63 mg/3 mL Neb INHALATION ×4 (08:07→19:05)
[2020-02-07 11:15] LABS: Glucose Point of Care 138 mg/dL (70-110)
--- NOTE | 2020-02-07 16:00 | PC.NURSE ---
PT HAD DRAINAGE FROM SUTURE SITE WHEN STANDING UP FROM BSC IT WAS LIGHT WATERY BROWN IN COLOR, NO SMELL THAT WAS NOTICIED, PT JUST HAD THIS DRAINAGE WHEN STANDING FROM A SITTING POSITION OR MOVING IN CHAIR. DR DELA CRUZ WAS NOTIFIED, PT ORDERED FOR NURSE TO MONITOR.
--- NOTE | 2020-02-07 17:03 | PM.PN ---
Subjective Subjective: Interval history: Patient noted serosanguineous discharge from one of her sutures today and is concerned about the same at this present time. Complains of some pain over her buttocks Medications: Reviewed: Yes Vitals/I&O/Wt Last Vital Signs Temp 99.7 F H 02/07/20 15:53 Pulse 89 02/07/20 16:28 Resp 18 02/07/20 16:22 BP 112/75 02/07/20 15:53 Pulse Ox 96 02/07/20 16:22 02/07/20 02/07/20 02/07/20 06:59 14:59 22:59 Intake Total 600 / 3240 340 / 340 Output Total 600 / 1365 10 Balance 0 / 1875 330 / 330 Physical Exam Narrative: EXAM NARRATIVE: GEN: Awake, alert and oriented, no acute distress CVS: S1S2 N RS: CTA B/L Abd: Soft, nt/nd , bs+ RAG SORTER AND CUTTER: no focal neuro deficits Extremities lower extremity pitting edema bilaterally Urinary Catheter Management^: Kuo Latex: Cath Placed During This Visit: yes Reason for Continuing Indwelling Catheter: Accurate Measurement of Urinary Output in Critically Ill Patients Urinary Catheter Date of Insertion: 02/01/20 Urinary Catheter Time of Insertion: 22:25 Data : 02/07/20 06:46 02/07/20 04:45 Micro: Microbiology 02/04/20 10:30 Gram Stain - Final Other Source Body Fluid Culture - Final A&P Assessment and plan (1) Respiratory failure, post-operative: Doing well postoperatively on the floors, respiratory status currently optimized. Lasix 40 mg IV x1, okay to remove Kuo catheter today, measure urine output and bedside commode to which patient is currently moving without any active issues. Status: Acute (2) Sepsis: Resolving. Leukocytosis normalizing. Now afebrile since 8 AM on 02/04. Septic shock resolved. Follow panculture results. So far nothing on Gram stain. Urine culture without growth. Sputum culture unremarkable. Continue antibiotics with Primaxin, vancomycin. Urinary bladder pressures were somewhat elevated, but no signs of compartment syndrome. Monitor. Status: Acute (3) Small bowel obstruction: Postoperative ileus appears to be improving. She is passing flatus. Per surgery. Diet advanced today to clear liquid. Status post exploratory laparotomy, segmental small bowel resection for necrotic bowel, repair of incarcerated ventral hernia with mesh and partial panniculectomy Status: Acute (4) Recurrent incisional hernia: See above Status: Acute (5) Leukocytosis: As above. Status: Acute (6) Diabetes mellitus: Sliding scale insulin Status: Acute Qualifiers: Diabetes mellitus type: type 2 Diabetes mellitus halfway insulin use: without halfway use Diabetes mellitus complication status: with other specified complication Qualified Code(s): E11.69 - Type 2 diabetes mellitus with other specified complication (7) Anemia: Appears stable so far. Follow hemoglobin closely Patient reports recent EGD, [place] with no cause of anemia discovered. Status: Acute Additional A&P Information Sacral skin breakdown: Reported seen on nursing examination. Continue repositioning. Physical deconditioning: Encouraged her to work with PT. Consideration may be given to care home facility placement depending on how well she recovers. If does well would benefit from home exercise program. Transaminitis: Little bit better. Blood pressure stabilized. Rhabdomyolysis improving. Monitor. Rhabdomyolysis: Improving. Monitor renal function. Could not reach by phone for update. full code Heparin for DVT prophylaxis Plan for today: Discontinue Kuo catheter, continue to monitor urine output, still with significant lower extremity edema for which diuretics being given today. Noticed some discharge from her wound site, will follow up plans for MELONY drain removal and drainage with surgery. Attestations Medical Necessity Statement*: Optimizing fluid status, needs to diurese, fever curve improving. Coding Level of Care Code Acute Chief Compliance Officer for [facility] Fwd Diagnoses Respiratory failure, post-operative J95.821 Sepsis A41.9 Small bowel obstruction K56.609 Recurrent incisional hernia K43.2 Leukocytosis D72.829 Diabetes mellitus E11.69 Diabetes mellitus type: type 2 Diabetes mellitus halfway insulin use: without halfway use Diabetes mellitus complication status: with other specified complication Anemia D64.9
[2020-02-07] MEDS: bacitracin ointment Pkt 1 EACH TOPICAL (17:26)
[2020-02-07 17:37] LABS: Glucose Point of Care 107 mg/dL (70-110)
[2020-02-07] MEDS: FUROsemide 10 mg/mL SDV 4mL 40 MG IVP (18:12)
--- NOTE | 2020-02-07 18:43 | PC.NURSE ---
SHIFT SUMMARY PT HAS NOT ASKED FOR ANY PAIN MEDICATIONS, SHE HAS HAD PAIN WITH MOVEMENT, BUT NOT ENOUGH TO HAVE ANY PAIN MEDICATION PER PT. PT HAS HAD A TOTAL OF 25ML OF FLUID OUT OF MELONY DRAIN. JAMES WAS REMOVED AT 1835, PT TOLERATED WELL. BACITRACIN APPLIED TO SURGICAL INCISION ORDERED BY PHYSICIAN. REDNESS SEEN ON LOWER ABDOMEN, DR SPEARS AWARE.
--- NOTE | 2020-02-07 21:58 | PC.NURSE ---
SKIN NOTE Pt has X2 Optifoam dressings to area of excoriated skin horizontally across lower back in skin fold. Some open areas along line. Also has large amt of dark purple skin to sacrum/buttocks areas. Some skin starting to peel. Pt says she obtained these prior to coming to floor.
[2020-02-07 22:19] LABS: Glucose Point of Care 111 mg/dL (70-110)
[2020-02-08] VITALS (11 sets, daily range): BP systolic 114–127; BP diastolic 70–84; PULSE 80–90; RESP 16–24; TEMP 37–37.6; O2SAT 93–98
[2020-02-08] MEDS: heparin 5,000 unit/mL INJ 1 mL 5000 UNIT SUBCUT ×3 (02:49→18:16)
[2020-02-08 05:24] LABS: Basophils # 0.1 10^3/uL (0.0-0.1); Basophils % 0.9 %; Eosinophils # 0.3 10^3/uL (0.0-0.8); Eosinophils % 3.3 %; Hematocrit 27.3 % (37.0-47.0); Hemoglobin 8.2 g/dL (11.5-15.3); Lymphocytes # 1.2 10^3/uL (0.8-4.8); Mean Corpuscular Hemoglobin 24.4 pg (28.0-34.0); Mean Corpuscular Volume 81.3 fL (81-99); Mean Platelet Volume 9.3 fL (7.4-10.4); Monocytes % 9.7 %; Neutrophils # 7.14 10^3/uL (1.8-7.7); Neutrophils % 70.4 %; Nucleated Red Blood Cells # 0.1 /100WBC; Nucleated Red Blood Cells % 0.6 %; Platelet Count 311 10^3/cmm (130-400); Red Blood Count 3.36 10^6/uL (4.1-5.3); Red Cell Distribution Width 21.3 % (12.1-15.1); White Blood Count 10.2 10^3/uL (4.0-10.0)
[2020-02-08 05:45] LABS: Alanine Aminotransferase 38 U/L (0-33); Albumin Level 2.5 g/dL (3.5-5.2); Alkaline Phosphatase 68 IU/L (35-105); Aspartate Amino Transferase 52 U/L (0-32); Blood Urea Nitrogen 10 mg/dL (6-20); Calcium 8.3 mg/dL (8.5-10.5); Carbon Dioxide 25 mmol/L (22-29); Chloride 102 mmol/L (98-107); Globulin 3.4 g/dL (1.3-4.6); Glomerular Filtration Rate 166.3 mL/min (90-130); Glucose 113 mg/dL (65-115); Osmolality Calculated 286 mOsm/kg (285-295); Sodium 138 mmol/L (136-145); Total Bilirubin 0.3 mg/dL (0.15-1.2); Total Protein 5.9 g/dL (6.6-8.7)
[2020-02-08 05:49] LABS: Anion Gap 14.4 (5-19); Potassium 3.4 mmol/L (3.5-5.1)
--- NOTE | 2020-02-08 05:51 | PC.NURSE ---
SHIFT SUMMARY Sits in [place] all the time. Says she can't wait to get home to her bed. c/o sore bottom Has dark purple discoloring to sacrum/buttocks area. Some peeling skin present. Keeps telling me she is going home today. Says she just needs to go home and heal. Has refused all offers of pain med tonight even though when she is awake she says she hurts all over. Had good urine output from IV Lasix dose given in evening. Still edematous across abdomen and BLE. Gets to BSC with 2 assist. Moves slow and says everything just exhausts her. IV infiltrated this morning and pt is refusing attempt to restart until she sees . Incision horizontally across lower abdomen with sutures intact. Has serosanguinous drainage from right side of incision. ABD kept in place to collect drainage. MELONY drain in place with 15ml drainage emptied this shift.
[2020-02-08 06:42] LABS: Glucose Point of Care 138 mg/dL (70-110)
--- NOTE | 2020-02-08 09:51 | PM.PN ---
Subjective Subjective: Interval history: The patient is anxious to go home. She says they removed her Kuo catheter yesterday but then apparently diuresed her and so she has been up frequently trying to urinate. She continues to pass flatus and is tolerating an oral diet. There was reported serosanguineous/light brown-colored fluid coming from the incision at one point yesterday. The patient says this has happened after every surgery I have had before. Vitals/I&O/Wt Last Vital Signs Temp 99.1 F 02/08/20 08:00 Pulse 82 02/08/20 08:00 Resp 16 02/08/20 08:00 BP 124/75 02/08/20 08:00 Pulse Ox 94 02/08/20 08:00 02/07/20 02/08/20 02/08/20 22:59 06:59 14:59 Intake Total 740 / 1680 500 / 1680 Output Total 918 / 1335 407 / 1335 Balance -178 / 345 93 / 345 Physical Exam Narrative: EXAM NARRATIVE: The incision looks good. There is no evidence of infection at the incision, separation of the wound, etc. There is no ongoing drainage. She does have some erythema and some edema of the inferior skin flap; it is difficult to know if this is an early infection or just more vascular congestion/pressure given her body habitus. The Chandana drain has minimal serous fluid in the bulb. Urinary Catheter Management^: Kuo Latex: Cath Placed During This Visit: yes, but has since been removed by the nurse Reason for Continuing Indwelling Catheter: Not indwelling catheter Urinary Catheter Date of Insertion: 02/01/20 Urinary Catheter Time of Insertion: 22:25 Date Urinary Catheter Removed: 02/07/20 Time Urinary Catheter Discontinued: 15:30 Data : 02/08/20 04:37 02/08/20 04:37 Micro: Microbiology 02/04/20 10:30 Gram Stain - Final Other Source Body Fluid Culture - Final A&P Assessment and plan (1) Recurrent incisional hernia: Status post reduction and repair of an incarcerated recurrent ventral hernia 02/02/2020. The patient unfortunately had an incarcerated and necrotic segment of small bowel and underwent a small bowel resection in addition to an incidental appendectomy and partial panniculectomy. The patient's bowel function has returned. The patient is very anxious to go home, but I have concerns about her being able to take care of herself even with the help of her and 19-year-old son at home. Nursing is concerned about her overall lack of motivation to get up, etc., but I cannot imagine that her activity level here in the hospital is much different than it is at any other time at home. Status: Acute (2) Small bowel obstruction: Status post reduction and repair of incarcerated recurrent ventral hernias with segmental small bowel resection on 02/02/2020. Status: Acute Attestations Medical Necessity Statement*: See admitting service's notation. Coding Level of Care Code Acute Ambulatory Services Representative for [facility] Fwd Diagnoses Recurrent incisional hernia K43.2 Small bowel obstruction K56.609
[2020-02-08] MEDS: bacitracin ointment Pkt 1 EACH TOPICAL ×2 (10:36→18:17)
[2020-02-08] MEDS: famotidine 20 mg Tablet PO ×2 (10:36→18:16)
[2020-02-08] MEDS: levalbuterol 0.63 mg/3 mL Neb INHALATION ×3 (11:11→20:24)
[2020-02-08 11:55] LABS: Glucose Point of Care 102 mg/dL (70-110)
[2020-02-08 13:09] LABS: Vancomycin Trough 11.3 ug/mL (10-15)
[2020-02-08] MEDS: HYDROcodone-acetaminophen 5-325 mg Tablet 1 TAB PO ×2 (13:11→18:17)
--- NOTE | 2020-02-08 13:51 | P.PN_ITS ---
Subjective Subjective: Interval history: Patient sitting in recliner chair. Not in acute respiratory distress. Saturating well on room air Complaining of pain in her lower back to be sitting position labs are requested nursing for special bed. Also reported lower extremity swelling. RN reported that she did not notice any discharge from her surgical incision site today Patient reported she was having disturbed sleep, daytime sleepiness and snoring but never had any sleep study done before. Medications: Reviewed: Yes Vitals/I&O/Wt Last Vital Signs Temp 99.6 F 02/08/20 12:00 Pulse 81 02/08/20 12:00 Resp 18 02/08/20 12:00 BP 120/74 02/08/20 12:00 Pulse Ox 96 02/08/20 12:00 02/07/20 02/08/20 02/08/20 22:59 06:59 14:59 Intake Total 740 / 1180 500 / 1680 240 / 240 Output Total 918 / 928 407 / 1335 Balance -178 / 252 93 / 345 240 / 240 Physical Exam Narrative: EXAM NARRATIVE: General: alert, NAD HEENT: conj clear, EOMI, PERRL, mmm, Neck: supple, no meningismus Heme: no cervical LAP Pulmonary: CTAB, no wheezing, rhonchi, crackles Cardiovascular: rrr, nl s1s2, no mrg Abdomen: Obese, transverse surgical incision looked edematous but no discharge noted Extremities: pulses +, 2+ pedal edema, no c/c : no CVA tenderness MSK: no back or neck pain Neurologic: grossly intact Urinary Catheter Management^: Kuo Latex: Cath Placed During This Visit: yes, but has since been removed by the nurse Reason for Continuing Indwelling Catheter: Not indwelling catheter Urinary Catheter Date of Insertion: 02/01/20 Urinary Catheter Time of Insertion: 22:25 Date Urinary Catheter Removed: 02/07/20 Time Urinary Catheter Discontinued: 15:30 Data : 02/08/20 04:37 02/08/20 04:37 Micro: Microbiology 02/04/20 10:30 Gram Stain - Final Other Source Body Fluid Culture - Final A&P Assessment and plan (1) Difficult ventilator weaning: Status: Acute (2) Abdominal wall hernia: Status: Acute (3) Status post exploratory laparotomy: Status: Acute (4) Respiratory failure, post-operative: Status: Acute ASSESSMENT/PLAN:Overall: Ms. Sonya Barragan 54 female with past medical history of diabetes, history of DVT, recurrent incision incisional ventral hernia, morbid obesity admitted for abdominal pain and underwent Exploratory laparotomy with segmental small bowel resection for necrotic segment of small bowel, repair of recurrent incarcerated ventral hernias with mesh, partial panniculectomy and appendectomy on 02/02/[address] Klein. Postoperative respiratory failure requiring mechanical ventilation. #Recurrent ventral hernia-s/p exploratory laparotomy and repair, small bowel segment resection for necrosis, partial panniculectomy -surgery follow-up #Difficult to wean off ventilator post surgery due to morbid obesity: -Extubated POD 3 - -Stable respiratory cowart; saturating 95% on room air; continue incentive spirometry and physical therapy; change Xopenex to as needed #Morbidly obese-cannot rule obesity hypoventilation syndrome-recommended ABG in a.m. and if baseline PCO2 > 45 then recommend BiPAP at nighttime #Complaining of daytime sleepiness, snoring, disturbed sleep-stop bang score 5 ; sleep study as outpatient and follow-up in pulmonary clinic #High risk for DVT and PE- continue prophylaxis Heparin 5000 sC #Improving LFTs & CK #Rhadomyolysis - improving #Diabetes-sugars well controlled #Currently covered with Augmentin and Levaquin -manage as per ID Code Status: Full code Disposition: Remains in MedSurg floor MD discussed with: Dr. Barrett, RN taking care of the patient Family: at bedside updated S/p exploratory laparotomy for recurrent ventral hernia and partial small bowel resection for necrosis and partial panniculectomy currently awaiting surgical clearance for discharge. Stable respiratory cowart. Pulmonary will sign off at this point and recommend to consult as needed Attestations Medical Necessity Statement*: S/p exploratory laparotomy for recurrent ventral hernia and partial small bowel resection for necrosis and partial panniculectomy currently awaiting surgical clearance for discharge. Stable respiratory cowart Time Spent in Patient Care: 16 - 35 minutes (>than 50% of time spent in counselling and/or direct pt care on unit) . Coding Level of Care Code Established Pt Acute Spar Machine Operator Helper for [facility] Fwd Patient Type Established History Comprehensive Exam Comprehensive Medical Decision Making Moderate Complexity Diagnoses Difficult ventilator weaning Z99.11 Abdominal wall hernia K43.9 Status post exploratory laparotomy Z98.890 Respiratory failure, post-operative J95.821 Time Spent (min) 30
--- NOTE | 2020-02-08 17:30 | P.PN_ITS ---
Subjective Subjective: Interval history: Patient lost IV access yesterday, does not want a repeat 1 to be placed. Explained and counseled regarding the need to maintain IV antibiotics, however patient is unwilling at this time. She is insistent on going home, however we have explained to her that this is not currently medically indicated due to increased erythema noted over her abdomen inferior to the site and T-max of 99.7. Medications: Reviewed: Yes Vitals/I&O/Wt Last Vital Signs Temp 99.3 F 02/08/20 16:00 Pulse 84 02/08/20 16:00 Resp 18 02/08/20 16:00 BP 127/84 02/08/20 16:00 Pulse Ox 95 02/08/20 16:00 02/08/20 02/08/20 02/08/20 06:59 14:59 22:59 Intake Total 500 / 1680 460 / 460 Output Total 407 / 1335 10 / Balance 93 / 345 450 / 450 Physical Exam Narrative: EXAM NARRATIVE: GEN: Awake, alert and oriented, no acute distress , morbidly obese, sitting in recliner chair CVS: S1S2 N RS: CTA B/L except crackles over RUL Abd: Soft, nt/nd , bs+ BASKETBALL COMMENTATOR: no focal neuro deficits Urinary Catheter Management^: Kuo Latex: Cath Placed During This Visit: yes, but has since been removed by the nurse Reason for Continuing Indwelling Catheter: Not indwelling catheter Urinary Catheter Date of Insertion: 02/01/20 Urinary Catheter Time of Insertion: 22:25 Date Urinary Catheter Removed: 02/07/20 Time Urinary Catheter Discontinued: 15:30 Data : 02/08/20 04:37 02/08/20 04:37 Micro: Microbiology 02/04/20 10:30 Gram Stain - Final Other Source Body Fluid Culture - Final A&P Assessment and plan (1) Respiratory failure, post-operative: Respiratory status is currently improved compared to when she was in the ICU. For lower extremity edema yesterday she was given Lasix 40 mg x 1 after which she has diuresed well. We will hold off on any further Lasix toda as she is clinically euvolemic. Status: Acute (2) Sepsis: Resolving. Leukocytosis normalizing. T-max intermittent 99.7. Developing hyperkalemia with some concern for SSDI Continue antibiotics with Primaxin, vancomycin, however patient lost IV access and does not want another IV line placed. In anticipation of upcoming discharge in the next 24 to 48 hours I will transition her to oral antibiotics with Augmentin and Levaquin and monitor for response while she is admitted. Kuo catheter was removed yesterday, diuresing well Status: Acute (3) Small bowel obstruction: Postoperative ileus appears to be improving. She is passing flatus. Per surgery. Diet advanced today to clear liquid. Status post exploratory laparotomy, segmental small bowel resection for necrotic bowel, repair of incarcerated ventral hernia with mesh and partial panniculectomy Status: Acute (4) Recurrent incisional hernia: See above Status: Acute (5) Leukocytosis: As above. Status: Acute (6) Diabetes mellitus: Sliding scale insulin Status: Acute Qualifiers: Diabetes mellitus type: type 2 Diabetes mellitus rolled gold plater insulin use: without fpc use Diabetes mellitus complication status: with other specified complication Qualified Code(s): E11.69 - Type 2 diabetes mellitus with other specified complication (7) Anemia: Appears stable so far. Follow hemoglobin closely Patient reports recent EGD, [place] with no cause of anemia discovered. Status: Acute Additional A&P Information 54-year-old lady admitted for incarcerated abdominal hernia, with morbid obesity, postop course complicated by respiratory failure, rhabdomyolysis, transaminitis now slowly improved from a respiratory perspective, transfer to floors and doing well. Currently ongoing concerns for developing hyperemia over skin inferior to her incision site concerning for possible developing infection. Sacral skin breakdown: Reported seen on nursing examination. Continue repositioning. Physical deconditioning: Encouraged her to work with PT. Consideration may be given to senior care facility placement depending on how well she recovers. If does well would benefit from home exercise program. Transaminitis: This is improving. Blood pressure stabilized. Rhabdomyolysis improving. Monitor. Rhabdomyolysis: Improving. Monitor renal function. Could not reach by phone for update. full code Heparin for DVT prophylaxis . Attestations Medical Necessity Statement*: Transition from IV to oral antibiotics, monitor closely for any signs of worsening skin and soft tissue infection over abdomen. Coding Level of Care Code Acute Community Health Navigator for [facility] Diagnoses Respiratory failure, post-operative J95.821 Sepsis A41.9 Small bowel obstruction K56.609 Recurrent incisional hernia K43.2 Leukocytosis D72.829 Diabetes mellitus E11.69 Diabetes mellitus type: type 2 Diabetes mellitus rolled gold plater insulin use: without rolled gold plater use Diabetes mellitus complication status: with other specified complication Anemia D64.9
[2020-02-08] MEDS: amoxicillin-clav 875-125 mg Tablet 1 TAB PO (18:16)
[2020-02-08 18:39] LABS: Glucose Point of Care 102 mg/dL (70-110)
--- NOTE | 2020-02-08 21:49 | PC.NURSE ---
BED Pt was requesting a bed. Thought she could lay down now and take pressure off her bottom Bed provided and pt says pain in her bottom gone. Enc to lay on sides as much as possible
[2020-02-08 22:03] LABS: Glucose Point of Care 103 mg/dL (70-110)
[2020-02-09] VITALS (9 sets, daily range): BP systolic 100–106; BP diastolic 50–70; PULSE 85–93; RESP 16–18; TEMP 36.6–37.3; O2SAT 92–96
[2020-02-09] MEDS: heparin 5,000 unit/mL INJ 1 mL 5000 UNIT SUBCUT (02:23)
[2020-02-09] MEDS: HYDROcodone-acetaminophen 5-325 mg Tablet 1 TAB PO ×2 (02:40→13:36)
[2020-02-09] MEDS: levoFLOXacin 750 mg Tablet PO (06:13)
--- NOTE | 2020-02-09 06:41 | NUR.SHIFT ---
Addendum entered by Zabrina Tobar LPN 02/09/20 06:48: 235ml drainage from MELONY Original Note: SHIFT SUMMARY Has rested for intervals tonight. She has alternated sides by sleeping with head at top of bed when on right side and moves head towards foot of bed to lay on left side. Sits on side of bed for periods. Says her bottom feels better this morning. Remains very purple. Applying Aloe Wellington ointment generously every time to BSC. Has urinated well with couple small loose BM's. Is doing quite well getting up and down on BSC tonight. Does not like to take pain med but did talk into taking one during night when was hurting so bad. Discussed with pt that taking occ pain pill will help her be able to move around better and she says she will. Is still really wanting to go home. Abd horizontal long incision with sutures intact. Has not leaked from incision tonight but has had a great deal more serosanguinous drainage from MELONY drain. Emptied several times for total of 230ml this shift.
[2020-02-09 06:49] LABS: Glucose Point of Care 120 mg/dL (70-110)
[2020-02-09] MEDS: levalbuterol 0.63 mg/3 mL Neb INHALATION ×2 (08:14→12:13)
[2020-02-09] MEDS: famotidine 20 mg Tablet PO (08:35)
[2020-02-09] MEDS: amoxicillin-clav 875-125 mg Tablet 1 TAB PO (08:35)
[2020-02-09 10:46] LABS: Glucose Point of Care 107 mg/dL (70-110)
--- NOTE | 2020-02-09 11:34 | PM.PN ---
Subjective Subjective: Interval history: The patient says she thinks she is going to get to go home today. She says she is feeling well. Vitals/I&O/Wt Last Vital Signs Temp 98.5 F 02/09/20 11:17 Pulse 89 02/09/20 11:17 Resp 16 02/09/20 11:17 BP 100/67 02/09/20 11:17 Pulse Ox 95 02/09/20 11:17 02/08/20 02/09/20 02/09/20 22:59 06:59 14:59 Intake Total 300 / 760 220 / 220 Output Total 15 / 5 1620 / 1645 Balance -15 / -885 -1320 / -885 220 / 220 Physical Exam Narrative: EXAM NARRATIVE: The incision looks good. She still has some edema and perhaps some very light erythema of the skin flap on the lower abdomen, but it does not look as red as it was yesterday. I think there is a very good chance this is more of a pressure phenomenon as opposed to an infection. Urinary Catheter Management^: Kuo Latex: Cath Placed During This Visit: yes, but has since been removed by the nurse Reason for Continuing Indwelling Catheter: Not indwelling catheter Urinary Catheter Date of Insertion: 02/01/20 Urinary Catheter Time of Insertion: 22:25 Date Urinary Catheter Removed: 02/07/20 Time Urinary Catheter Discontinued: 15:30 Data : 02/08/20 04:37 02/08/20 04:37 Micro: Microbiology 02/04/20 09:17 Blood Culture - Final Blood NO GROWTH AFTER 5 DAYS 02/04/20 09:23 Blood Culture - Final Blood NO GROWTH AFTER 5 DAYS A&P Assessment and plan (1) Recurrent incisional hernia: Status post reduction and repair of an incarcerated recurrent ventral hernia 02/02/2020. The patient unfortunately had an incarcerated and necrotic segment of small bowel and underwent a small bowel resection in addition to an incidental appendectomy and partial panniculectomy. The patient's bowel function has returned. I would not be opposed to the patient being discharged on some oral antibiotics for a week or so. I will make arrangements to follow-up with her in my office as an outpatient. Status: Acute (2) Small bowel obstruction: Status post reduction and repair of incarcerated recurrent ventral hernias with segmental small bowel resection on 02/02/2020. Status: Acute Attestations Medical Necessity Statement*: See admitting service's notation. Coding Level of Care Code Acute Economist Research Assistant for g Fwd Diagnoses Recurrent incisional hernia K43.2 Small bowel obstruction K56.609
[2020-02-09 12:33] LABS: ABG PCO2 33.7 mmHg (35-45); ABG PH Result 7.52 (7.35-7.45); Arterial Blood Gas Hematocrit 26.5 % (37-47); Base Excess ABG 4.2 mmol/L (-2.0-2.0); Blood Gas Allen Test Pos; Blood Gas Operator Identificat GD; Blood Gas Sample Site Radial, left; Blood Gas Sample Type Arterial; HCO3 ABG 27.2 mmol/L (22-26); Oxygen Device ROOM AIR
[2020-02-09] MEDS: bacitracin ointment Pkt 1 EACH TOPICAL (13:37)
--- NOTE | 2020-02-09 14:02 | P.DS_ITS ---
Discharge Providers Date of Admission: 02/01/20 08:46 Date of Discharge: February 09, 2020 Attending Provider at Admission: Kleber Galvan MD Attending Provider at Discharge: Vita Barrett MD Primary Care Provider: Henrik Stevens NP Diagnoses at Discharge Discharge Diagnosis (1) Recurrent incisional hernia: Status: Acute (2) Small bowel obstruction: Status: Acute (3) Respiratory failure, post-operative: Status: Acute (4) Status post exploratory laparotomy: Status: Acute (5) Difficult ventilator weaning: Status: Acute (6) Anemia: Status: Acute (7) Diabetes mellitus: Status: Acute Qualifiers: Diabetes mellitus type: type 2 Diabetes mellitus continuous churn buttermaker insulin use: without group home use Diabetes mellitus complication status: with other specified complication Qualified Code(s): E11.69 - Type 2 diabetes mellitus with other specified complication (8) Sepsis: Status: Acute Reason for Visit Reason for Visit: ABD PAIN Hospital Course Hospital Course 54-year-old lady admitted for incarcerated abdominal hernia, with morbid obesity, s/p reduction and repair of an incarcerated recurrent ventral hernia 02/02/2020 with incidental appendectomy and partial panniculectomy. Postop course complicated by respiratory failure , multifactorial related to fluid overload, obesity hypoventilation with diffucult extubation , rhabdomyolysis, transaminitis now slowly improved back to baseline. She required iv diuresis prior to extubation. On vancomycin, changed to imipenem and vancomycin there are 2. Patient subsequently lost IV access 24 hours prior to admission and has now been transitioned to oral antibiotics with Augmentin and levofloxacin. There is some concern for hyperemia along the inferior part of the pannus just below the suture line, however this appears to be stable on oral antibiotics and may be related to dependent edema in this area. Patient is currently afebrile, leukocytosis is much improved. She is anxious to return home and today's time discharge. Recommendations to continue oral antibiotics for another week. She is to return to the ER in case of temperature greater than 100.4 and signs of worsening abdominal wall cellulitis. Patient's daughter who is a nurse and who is a EMT will be taking care of her at home. Follow-up with general surgery within 1 week. An ABG was done prior to discharge to evaluate for any underlying hypercapnia because of obesity hypoventilation syndrome and see if patient can benefit from trilogy, however is able to was currently at 33.7 with some degree of respiratory alkalosis. Recommended to follow-up as outpatient with Dr. Grover. Lisinopril was discontinued upon discharge as patient systolic blood pressure ranged between 100-1 10 off of lisinopril during the course of admission. Physical Exam Narrative: EXAM NARRATIVE: GEN: Awake, alert and oriented, no acute distress , anxious to return home CVS: S1S2 N RS: CTA B/L Abd: Soft, nt/nd , bs+ BLANKET WEAVER: no focal neuro deficits Urinary Catheter Management^: Kuo Latex: Cath Placed During This Visit: yes, but has since been removed by the nurse Reason for Continuing Indwelling Catheter: Not indwelling catheter Urinary Catheter Date of Insertion: 02/01/20 Urinary Catheter Time of Insertion: 22:25 Date Urinary Catheter Removed: 02/07/20 Time Urinary Catheter Discontinued: 15:30 Discharge Data Data Completed and Pending: Completed Studies During Hospitalization Category Date Time Status CT angio chest w abd pel w con Stat Cat Scan 02/01/20 06:26 Completed CXRP [XR chest 1V portable 00209] R outine Exams 02/03/20 05:00 Completed XR chest 1V 60449 Routine Exams 02/01/20 10:18 Completed XR chest 1V breanne ble [id number] Routine Exams 02/02/20 08:26 Completed XR chest 1V breanne ble [id number] Routine Exams 02/04/20 07:00 Completed Pathology: Surgic al [PTH] Routine Pth 02/02/20 03:32 Completed US abdomen limite d [id number] Routine Ultrasound 02/04/20 11:20 Completed Pending at discharge Category Date Time Status ABG ONLY [Arteria l Blood Gas W/O Co ox] Routine Lab 02/02/20 04:45 Results MRSA by PCR Routi ne Lab 02/03/20 18:00 Received Miscellaneous Gabriela t Routine Lab 02/08/20 15:24 Received Labs from last 24 hours 02/09/20 02/09/20 02/09/20 12:16 10:33 06:24 Specimen Type Arterial Sample Site Radial, left ABG pH 7.52 H ABG pCO2 33.7 L ABG pO2 109.0 H ABG HCO3 27.2 H ABG Base Excess 4.2 H Helder Test Pos Hematocrit 26.5 L O2 Delivery Device Room air Ground Products Director ID Gd POC Glucose 107 120 H Misc Test Referenc e 02/08/20 02/08/20 02/08/20 21:44 18:25 15:24 Specimen Type Sample Site ABG pH ABG pCO2 ABG pO2 ABG HCO3 ABG Base Excess Helder Test Hematocrit O2 Delivery Device Ground Products Director ID POC Glucose 103 102 Misc Test Referenc e Pending Vitals: Last Vital Signs Temp 98.5 F 02/09/20 11:17 Pulse 87 02/09/20 12:14 Resp 16 02/09/20 12:13 BP 100/67 02/09/20 11:17 Pulse Ox 94 02/09/20 12:13 Discharge Plan Discharge Patient Disposition: Home Condition: Stable Prescriptions: New hydrocodone-acetaminophen 5-325 mg Tablet 1 tab PO Q4H PRN (Reason: Moderate Pain) 7 Days Qty: 28 RF: 0 levofloxacin 750 mg Tablet 750 mg PO DAILY@0600 7 Days Qty: 7 RF: 0 amoxicillin-pot clavulanate 875-125 mg Tablet 1 tab PO BID 7 Days Qty: 14 RF: 0 Continued furosemide 40 mg tablet 40 mg PO DAILY@18 RF: 0 pantoprazole 20 mg tablet,delayed release (DR/EC) 20 mg PO DAILY@04 RF: 0 pravastatin 10 mg tablet 10 mg PO DAILY@18 RF: 0 methylcellulose (laxative) 500 mg Tablet 500 mg PO DAILY@04 RF: 0 Stool Softener 100 mg Capsule 100 mg PO BID@12,18 RF: 0 gabapentin 300 mg capsule 300 mg PO TID@04,,18 RF: 0 albuterol sulfate 90 mcg/actuation HFA aerosol inhaler 1 - 2 puff INHALATION QID PRN (Reason: Shortness Of Breath) RF: 0 metformin 500 mg tablet extended release 24 hr 500 mg PO DAILY@18 RF: 0 cholecalciferol (vitamin D3) 1,250 mcg (50,000 unit) capsule 1,250 mcg PO Q7D RF: 0 fenofibrate 54 mg tablet 54 mg PO DAILY@18 RF: 0 Discontinued meloxicam 15 mg tablet 15 mg PO DAILY@04 RF: 0 lisinopril 10 mg tablet 10 mg PO DAILY@18 RF: 0 Discharge Orders: Discharge Order (Routine); Ordered 02/09/20 Ordered By: Vita Barrett Other Ambulatory Orders: DME: Walker (Order) Location: None Selected Ordered By: Vita Barrett Referrals: [facility] [place] [Outside] Cayetano Klein MD [Physician] - 02/16/20 1:30 pm (Nursing: Please call Dr. Klein's office ([phone]) and make an appointment for the patient to be seen next week.) Discharge Diet: Advance as tolerated Discharge Activity: Resume usual activity and Increase activity as tolerated Discharge Attestations Time Spent in Discharge Care*: greater than 30 min Specific Discharge Activities: educating patient, discussing with pcp/other providers, documenting/other paperwork and evaluating patient/reviewing data Quality Metrics Clinical Quality Measures During this hospital stay, did patient experience: None Coding Level of Care Code Acute Flight Dynamicist for g Fwd Diagnoses Recurrent incisional hernia K43.2 Small bowel obstruction K56.609 Respiratory failure, post-operative J95.821 Status post exploratory laparotomy Z98.890 Difficult ventilator weaning Z99.11 Anemia D64.9 Diabetes mellitus E11.69 Diabetes mellitus type: type 2 Diabetes mellitus continuous churn buttermaker insulin use: without continuous churn buttermaker use Diabetes mellitus complication status: with other specified complication Sepsis A41.9
--- NOTE | 2020-02-09 15:00 | PC.NURSE ---
Reviewed discharge paperwork with patient at this time. Patient verbalized understanding of picking up her medications at [facility] at her request and verbalized understanding of her follow up appointments. Patient denies any questions at this time. Patient is A&Ox3. Respirations even and non-labored on room air. Patient wheel chaired to private car at this time.
--- NOTE | 2020-02-12 09:12 | PC.SOCIAL ---
Addendum entered by Ina Wagner RN 02/12/20 09:17: Please note will send results to PCP office as well and update that Vancomycin has been prescribed. Original Note: Late Entry for 02/11/2020 0930. Confirmed with Micro stool tested positive for C-Diff. Discussed with provider. She will order Vancomycin PO for patient and send to pharmacy. Called patient and updated her on result of stool testing and the need to complete abx therapy. Pt verbalized understanding and when asked did indicate she has experienced ongoing diarrhea explosive since return home. We discussed to try and eliminate others using the same restroom and if they have no choice to be sure and sanitize well before use. Discussed cleaning often with bleach product until C Diff clears up. Patient worried about cost. We discussed to have med sent to our pharmacy in case co pay for insurance is too high may be able to use the 340B plan option. Pt agreeable. Changed preferred pharmacy to [facility] and notified provider. Called pharmacy and they will run this once received and let me know cost. Did not hear back therefore called them at 1130 and patient had already called to inquire and co pay was only $10. Per Pharmacy daughter is to pick it up.
== END 2020-02-09 15:00 | disposition home or self-care (01) | DRG 329 ==
LOC: ER 06:18 → MEDSURG 09:10 → ICU 02-02 01:27 → MEDSURG 02-06 18:12
PROVIDERS: Internal Medicine; Internal Medicine Pulmonary Disease; Surgery; Admitting Provider Internal Medicine; Emergency Provider Family Medicine; PCP Nurse Practitioner Family; Visit Provider Student in an Organized Health Care Education/Training Program
PROC: 0WQF0ZZ Repair Abdominal Wall, Open Approach (ICD-10-PCS; principal; 2020-02-01 17:30)
PROC: (CPT 49000; 2020-02-01 17:30)
PROC: (CPT 44120; 2020-02-01 17:30)
DX: K55.021 Focal (segmental) acute infarction of small intestine (principal); K63.1 Perforation of intestine (nontraumatic); A41.9 Sepsis, unspecified organism; R65.21 Severe sepsis with septic shock; J95.821 Acute postprocedural respiratory failure; J69.0 Pneumonitis due to inhalation of food and vomit; K43.0 Incisional hernia with obstruction, without gangrene; K56.50 Intestinal adhesions [bands], unspecified as to partial versus complete obstruction; Z68.43 Body mass index [BMI] 50.0-59.9, adult; E87.2 Acidosis; M62.82 Rhabdomyolysis; E66.2 Morbid (severe) obesity with alveolar hypoventilation; M19.90 Unspecified osteoarthritis, unspecified site; G89.29 Other chronic pain; M54.9 Dorsalgia, unspecified; E11.9 Type 2 diabetes mellitus without complications; D64.9 Anemia, unspecified; I95.9 Hypotension, unspecified; Z86.718 Personal history of other venous thrombosis and embolism; L89.150 Pressure ulcer of sacral region, unstageable; E87.5 Hyperkalemia
CPT/HCPCS: 12345; 36415; 36416; 36592; 36600; 71045; 71275; 74177; 76705; 80051; 80053; 80202; 81001; 82330; 82550; 82803; 82805; 82962; 83605; 83690; 84484; 85007; 85025; 87040; 87070; 87075; 87086; 87205; 87493; 87641; 88307; 93005; 94002; 94003; 94640; 94799; 96372; 96375; 97110; 97163; 97530; 99283; J0131; J0330; J0690; J0743; J1100; J1170; J1200; J1644; J1815; J1940; J2250; J2270; J2405; J2543; J2704; J3010; J3370; J3490; J7030; J7040; J7050; J7614; P9047; Q9967; S0030

== ENCOUNTER 2020-02-16 12:58 | Inpatient (IN) | payer OTHER, SELFPAY ==
[2020-02-16] VITALS (10 sets, daily range): BP systolic 127–140; BP diastolic 76–99; PULSE 70–108; RESP 16–24; TEMP 37.2–37.4; O2SAT 93–98; BMI 59.1
--- NOTE | 2020-02-16 14:56 | CTR_ITS ---
PROCEDURE INFORMATION: Exam: CT Abdomen And Pelvis With Contrast Exam date and time: 02/16/2020 4:37 PM Age: 54 years old Clinical indication: Abdominal pain; Prior surgery; Additional info: Abd pain TECHNIQUE: Imaging protocol: Computed tomography of the abdomen and pelvis with intravenous contrast. Total images: 318 Radiation optimization: All CT scans at this facility use at least one of these dose optimization techniques: automated exposure control; mA and/or kV adjustment per patient size (includes targeted exams where dose is matched to clinical indication); or iterative reconstruction. Contrast material: OMNI 300; Contrast volume: 95 ml; Contrast route: INTRAVENOUS (IV); COMPARISON: CT angio chest w abd pel w con 02/01/2020 6:53 AM RADIATION DOSE METRICS: Total DLP (mGy-cm): 2407.85 FINDINGS: Lungs: Limited assessment of the lung bases fails to reveal evidence for active cardiopulmonary process. Liver: Advanced diffuse fatty infiltration of the liver with hepatomegaly. No visible hepatic mass or cystic structure. Gallbladder and bile ducts: Cholelithiasis. Pancreas: Mild fatty replacement and atrophy of the pancreas. No visible pancreatic ductal dilatation. Spleen: Spleen unremarkable. Adrenal glands: Adrenal glands unremarkable. Kidneys and ureters: No visible hydronephrosis or perinephric fluid. No visible nephrolithiasis. Stomach and bowel: Ectatic distal jejunal small bowel loops with mild mucosal thickening in increased enhancement suggesting moderate grade active jejunitis. Mild diverticulosis coli without visible evidence for acute diverticulitis. Nonobstructive bowel pattern. Appendix: No evidence of appendicitis. Intraperitoneal space: Evidence of moderate mesenteritis/panniculitis. No visible pneumoperitoneum. No visible intraperitoneal ascites. Vasculature: The abdominal aorta is nonaneurysmal. Mild arterial sclerotic disease. Lymph nodes: Unremarkable. No enlarged lymph nodes. Urinary bladder: Urinary bladder unremarkable. Reproductive: Again note of a calcified uterine fibroid maximum dimensions 55 mm in diameter. Bones/joints: Mild levoscoliosis of the lumbar spine. Degenerative disease of the spine. Degenerative disc disease primarily L4/5 and L5/S1 with vacuum disc phenomenon. Soft tissues: Marked morbid obesity. Previous ventral hernia repair. Diffuse edema of the lower ventral soft tissue pedunculous. No visible soft tissue loculated fluid collection to suggest the presence of a formed mature abscess, seroma, or hematoma within the field of view. Other findings: Increased quantum mottle artifact which degrades image quality in detail. CT/CT abdomen pelvis w con* [id number] IMPRESSION: 1. Moderate grade jejunitis. 2. Evidence of moderate mesenteritis/panniculitis. 3. Advanced diffuse fatty infiltration of the liver with hepatomegaly. 4. Cholelithiasis. 5. Diffuse edema of the lower ventral soft tissue pedunculous. 6. Other nonurgent, nonemergent, chronic, and age related findings as detailed in text above. Radiation Dose CTDIVOL = (mGy): DLP = 2407.85 (mGy-cm)
--- NOTE | 2020-02-16 14:58 | ED_ITS ---
HPI - Abdominal Pain General: Chief Complaint: Abdominal Pain Stated Complaint: Severe abdominal pain Time Seen by Provider: 02/16/20 14:56 History of Present Illness: HPI narrative: 54-year-old female presents to the emergency room with complaints of abdominal pain. On 1221 I seen this patient emergency room she did abdominal wall hernia that was incarcerated she underwent surgery for that she seemed to be doing well but then overnight she began having more pain she is not any change in the drainage from her tube but her abdomen is becoming more bloated she is not had a bowel movement since yesterday she seen Dr. Klein this morning on follow-up and she was advised to come to the emergency room but delayed presentation for a time. She has been very nauseous with vomiting. She had been having loose stools but those stopped yesterday. She also tells me she was treated for C. difficile in the postop. On oral vancomycin. MD elicited complaint: abdominal pain Pertinent past history: other (Bowel resection after hernia repair) Onset (ago): hour(s) Pain Consistency: constant Location: Diffuse Severity: severe Quality: cramping Radiation: back Migration to: no migration Exacerbating factors: vomiting and movement Relieving factors: rest (Sitting upright) Associated Symptoms: Reports anorexia, bloating, change in bowel habits, change in stool character, GI cramping, diarrhea, loose stools, nausea and poor appetite; Denies belching, chills, coffee ground emesis, constipation, dyspepsia, dysuria, excessive flatus, fever(s), heartburn, hematochezia, hematuria, hematemesis, fecal incontinence, melena, syncope and vomiting Review of Systems Const: Denies: fever(s) or chills ENMT: Denies: throat pain, ear or mastoid pain, nasal discharge or nasal congestion Card: Denies: syncope Resp: Denies: dyspnea, productive cough or non-productive cough GI: Reports: nausea, diarrhea, bloating, GI cramping, change in bowel habits and change in stool character; Denies: vomiting, hematemesis, coffee ground emesis, heartburn, constipation, belching, excessive flatus, fecal incontinence, hematochezia or melena : Denies: dysuria or hematuria Skin/Breast: Denies: rash or pruritus PFS ED PFSH: Medical History Anemia Arthritis Chronic back pain Diabetes mellitus Hernia History of DVT (deep vein thrombosis) SBO (small bowel obstruction) Sinusitis Surgical History History of 2 sections History of breast biopsy History of ventral hernia repair Multiple 02/01 2020 -- incarcerated recurrent ventral hernia with necrotic small bowel Repair of recurrent ventral hernia with mesh, segmental small bowel resection, incidental appendectomy Mass of soft tissue of forearm Benign -- excised 2013 Status post carpal tunnel release of both wrists Family History Other CAD (coronary artery disease) Social History Smoking and tobacco status: never smoked Alcohol intake: never Physical Exam Const: COMMON NORMALS: no acute distress GENERAL APPEARANCE: cooperative and comfortable ORIENTATION/CONSCIOUSNESS: Yes awake, Yes oriented to person, Yes oriented to place and Yes oriented to time HENMT: COMMON NORMALS: normocephalic, atraumatic and hearing grossly normal bilaterally HEAD & SCALP: normocephalic and atraumatic Neck/C-Spine: COMMON NORMALS: no JVD Resp: COMMON NORMALS: normal respiratory effort, No retractions, No use of accessory muscles and clear to auscultation bilaterally AUSCULTATION: clear to auscultation bilaterally Cardio: COMMON NORMALS: no JVD, regular rate, regular rhythm and No murmurs present (Cardio) RATE: regular rate RHYTHM: regular rhythm GI: COMMON NORMALS: Soft to palpation and No hepatosplenomegaly present AUSCULTATION: Yes normoactive bowel sounds PALPATION: Yes Soft to palpation, No Tenderness to palpation present (GI), No Guarding due to palpation present (GI) and Yes No hepatosplenomegaly present Extremity: COMMON NORMALS: normal to inspection, capillary refill normal, no clubbing, cyanosis or edema, no calf tenderness and no pedal edema Neuro: SENSORIUM/ORIENTATION: Yes oriented to person, Yes oriented to place and Yes oriented to time Skin: COMMON NORMALS: no rashes or lesions noted GENERAL SKIN EXAM: no rashes or lesions noted Course Vital Signs: Vital signs: Vital Signs Temperature 98.4 F 02/18/20 04:00 Pulse Rate 99 01/07/21 04:00 Respiratory Rate 22 H 02/18/20 04:00 Blood Pressure 119/79 02/18/20 04:00 Pulse Oximetry 90 02/18/20 04:00 MDM - Abdominal Pain MDM Narrative: Medical decision making narrative: Consulted Dr. Klein who is unfortunately out of town and not able to attend to this patient. He asked that we call the on-call surgeon. I did call Dr. Perry and he will follow along also Dr. Dr. Barrett she will be the admitting she had seen the patient in the time of discharge there was concern then about a panniculitis. I am also concerned she may be developing an early small bowel obstruction with a CT being read as jejunitis with fluid in the loops of the jejunum absent bowel sounds and sudden cessation of bowel movements yesterday. We have given her Zosyn down here Dr. Barrett will see her. She was recently treated for C. difficile after hospitalization is currently on Levaquin and Augmentin she is not had any further stools this will need to be evaluated further as well. Lab Data: Labs: Lab Results 02/16/20 02/16/20 02/16/20 Range/Units 15:15 15:15 17:10 WBC 17.4 H (4.0-10.0) 10^3/ uL RBC 4.02 L (4.1-5.3) 10^6/u L Hgb 9.9 L (11.5-15.3) g/dL Hct 33.1 L (37.0-47.0) % MCV 82.3 (81-99) fL MCH 24.6 L (28.0-34.0) pg MCHC 29.9 L (30.0-36.0) g/dL RDW 19.6 H (12.1-15.1) % Plt Count 423 H (130-400) 10^3/c mm MPV 9.7 (7.4-10.4) fL Neut % (Auto) 89.0 % Lymph % (Auto) 4.0 % Harper % (Auto) 5.9 % Eos % (Auto) 0.1 % Baso % (Auto) 0.5 % Neut # (Auto) 15.44 H (1.8-7.7) 10^3/u L Lymph # (Auto) 0.7 L (0.8-4.8) 10^3/u L Harper # (Auto) 1.0 H (0.2-0.9) 10^3/u L Eos # (Auto) 0.0 (0.0-0.8) 10^3/u L Baso # (Auto) 0.1 (0.0-0.1) 10^3/u L Nucleated RBC % (a uto) 0.1 % Nucleated RBCs # 0.0 /100WBC Sodium 134 L (136-145) mmol/L Potassium 3.8 (3.5-5.1) mmol/L Chloride 97 L (98-107) mmol/L Carbon Dioxide 26 (22-29) mmol/L Anion Gap 14.8 (5-19) BUN 8 (6-20) mg/dL Creatinine 0.7 (0.5-0.9) mg/dL GFR Calculation 87.2 L (90-130) mL/min Glucose 147 H (65-115) mg/dL Calculated Osmolal ity 279 L (285-295) mOsm/k g Calcium 8.8 (8.5-10.5) mg/dL Total Bilirubin 0.4 (0.15-1.2) mg/dL AST 27 (0-32) U/L ALT 21 (0-33) U/L Alkaline Phosphata se 77 (35-105) IU/L Total Protein 7.3 (6.6-8.7) g/dL Albumin 3.2 L (3.5-5.2) g/dL Globulin 4.1 (1.3-4.6) g/dL Lipase 43 (13-60) U/L Urine Color Brown (Yellow) Urine Appearance Sl hazy (CLEAR) Urine pH 6.5 (5-7) Ur Specific Gravit y 1.015 (1.005-1.030) Urine Protein 2+ H (Negative) Urine Glucose (UA) Trace H (Normal) Urine Ketones 1+ H (Negative) Urine Blood 2+ H (Negative) Urine Nitrate Negative (Negative) Urine Bilirubin 1+ H (Negative) Urine Urobilinogen 1 H (Negative) mg/dL Ur Leukocyte Nayana ase Trace H (Negative) Urine RBC None (0-2) /hpf Urine WBC 0-4 H (0-5) /hpf Ur Squamous Epith Cells 15-25 H (0-5) /hpf Amorphous Sediment Not Reportable Urine Bacteria 1+ H (NONE) /hpf Urine Mucus 1+ /hpf Discharge Plan Discharge Patient Disposition: Admitted As Inpatient Admit Provider: Vita Barrett Clinical Impression: Panniculitis, Jejunitis, C. 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
[2020-02-16 15:35] LABS: Basophils # 0.1 10^3/uL (0.0-0.1); Basophils % 0.5 %; Eosinophils % 0.1 %; Hematocrit 33.1 % (37.0-47.0); Hemoglobin 9.9 g/dL (11.5-15.3); Lymphocytes # 0.7 10^3/uL (0.8-4.8); Mean Corpuscular HGB Conc 29.9 g/dL (30.0-36.0); Mean Corpuscular Hemoglobin 24.6 pg (28.0-34.0); Mean Corpuscular Volume 82.3 fL (81-99); Mean Platelet Volume 9.7 fL (7.4-10.4); Monocytes % 5.9 %; Neutrophils # 15.44 10^3/uL (1.8-7.7); Nucleated Red Blood Cells % 0.1 %; Platelet Count 423 10^3/cmm (130-400); Red Blood Count 4.02 10^6/uL (4.1-5.3); Red Cell Distribution Width 19.6 % (12.1-15.1); White Blood Count 17.4 10^3/uL (4.0-10.0)
[2020-02-16] MEDS: morphine 4 mg/mL SDV 1 mL 6 MG IVP (15:40)
[2020-02-16] MEDS: ondansetron 2 mg/ML SDV 2 mL 4 MG IVP (15:40)
[2020-02-16 15:57] LABS: Alanine Aminotransferase 21 U/L (0-33); Albumin Level 3.2 g/dL (3.5-5.2); Alkaline Phosphatase 77 IU/L (35-105); Aspartate Amino Transferase 27 U/L (0-32); Blood Urea Nitrogen 8 mg/dL (6-20); Calcium 8.8 mg/dL (8.5-10.5); Carbon Dioxide 26 mmol/L (22-29); Chloride 97 mmol/L (98-107); Globulin 4.1 g/dL (1.3-4.6); Glomerular Filtration Rate 87.2 mL/min (90-130); Glucose 147 mg/dL (65-115); Lipase 43 U/L (13-60); Osmolality Calculated 279 mOsm/kg (285-295); Sodium 134 mmol/L (136-145); Total Bilirubin 0.4 mg/dL (0.15-1.2); Total Protein 7.3 g/dL (6.6-8.7)
[2020-02-16 15:59] LABS: Anion Gap 14.8 (5-19); Potassium 3.8 mmol/L (3.5-5.1)
[2020-02-16] MEDS: iohexol 300 mg/mL 100 mL Btl IV (16:39)
--- NOTE | 2020-02-16 16:44 | PC.NURSE ---
Peritoneal fluid collected from Hoang Atkinson drain and send to lab for culture.
[2020-02-16 17:40] LABS: Add Urine Microscopic? YES; Bilirubin Urine 1+ (Negative); Blood Urine 2+ (Negative); Glucose Urine UA Trace (Normal); Ketones Urine 1+ (Negative); Leukocyte Esterase Urine Trace (Negative); Nitrate Urine Negative (Negative); Protein Urine 2+ (Negative); Specific Gravity, Urine 1.015 (1.005-1.030); Urine Appearance SL Hazy (CLEAR); Urine Color Brown (Yellow); Urobilinogen Urine 1 mg/dL (Negative); pH Urine 6.5 (5-7)
[2020-02-16 17:42] LABS: Add Urine Culture? No; Bacteria Urine 1+ /hpf; Mucus Urine 1+ /hpf; Squamous Epithelial Cell Urine 15-25 /hpf (0-5); WBC Urine 0-4 /hpf (0-5)
[2020-02-16] MEDS: morphine 4 mg/mL SDV 1 mL 2 MG IVP (17:55)
[2020-02-16] MEDS: piperacillin-tazobactam 3.375 GM in sodium chloride 0.9% (plus) 50 ML IV (18:00)
[2020-02-16] MEDS: promethazine 25 mg/mL SDV 1 mL IM (18:00)
[2020-02-16] MEDS: morphine 4 mg/mL SDV 1 mL IVP (18:05)
[2020-02-16 19:17] LABS: Lactic Sepsis W/Reflex 1.7 mmol/L (0.5-2.2)
--- NOTE | 2020-02-16 19:29 | P.HP_ITS ---
Providers/Chief Complaint Admitting Physician: Vita Barrett MD Primary Care Provider: Henrik tSevens NP Chief Complaint: Severe abdominal pain History of Present Illness Sonya Barragan is a 54 year old female 54-year-old lady admitted for incarcerated abdominal hernia, with morbid obesity, s/p reduction and repair of an incarcerated recurrent ventral hernia 02/02/2020 with incidental appendectomy and partial panniculectomy. Postop course complicated by respiratory failure , multifactorial related to fluid overload, obesity hypoventilation with diffucult extubation , rhabdomyolysis, transaminitis. She was discharged on 02/08 after having received iv abx treatment with imipenem/vancomycin and iv diuresis with lasix. There was some concern for developing cellulitis over the inferior pannus at the time of discharge, however changes appeared to be stable without progression on po abx Augmentin and levaquin and she was discharged with a course of 1 week. Post discharge her C.diff results came back positive and a prescription for po vancomycin was called in. She has been compaint with the same and has had resolved diarrhea over the last 24 hrs. She presented for f/up to Dr. Klein's office today to assess for MELONY drain removal, had an episode of emesis, bloating and was sent back to the ER for concern for SBO/ileus. CT in [facility] ER suggestive of jejunitis and pannciculitis. Compared to when i had last seen her on discharge, MELONY drain output remains clear and serosanginuous, suture line with erythema, pannus inferior to suture line appears less erythematuous on discharge, though firmer to palpation and appearing to have more edema. no fever. 1 episode of emesis, dyspepsia+, diarrhea resolved since yesterday. Review of Systems General: Reports: 10 or more systems reviewed and unremarkable except in HPI and below Const: Denies: fever(s), chills or body aches Eyes: Denies: change in vision, blurry vision or photophobia ENMT: Reports: hoarseness; Denies: throat pain, enlarged tonsils, odynophagia or nasal congestion Card: Denies: chest pain, palpitations, irregular heart rhythm, edema, swelling of feet/ankles, lightheadedness, pre-syncope, dyspnea on exertion or orthopnea Resp: Denies: dyspnea, productive cough, non-productive cough, wheezing, stridor, pain on inspiration, change in phlegm color, hemoptysis or chest congestion GI: Denies: abdominal pain, nausea, vomiting, hematemesis, coffee ground emesis, dysphagia, heartburn, diarrhea, constipation, GI cramping, change in stool character, hematochezia or melena : Denies: flank pain, difficulty voiding, dysuria, urinary frequency, urinary urgency, urinary hesitancy or hematuria Musc: Denies: neck pain, back pain, extremity pain, joint swelling, joint warmth or deformity Neuro: Denies: headache(s), numbness in extremities, weakness in extremities, sensory changes, difficulty walking, frequent falls, dizziness, vertigo, behavioral changes, Slurred speech present or seizure-like activity Psych: Denies: anxiety, depression, suicidal ideation or homicidal ideation Endo: Denies: polyuria, polydipsia, tired all the time, cold intolerance or hot flashes Konstantin/Lymph: Denies: easy bruising or easy bleeding Medications/Allergies Home Medications Medication Instructions Recorded Confirmed Last Taken Type albuterol sulfate 1 - 2 puff INHALATION QID PRN 02/01/20 02/16/20 02/16/20 History cholecalciferol (vitamin D3) 1,250 mcg PO Q7D 02/01/20 02/16/20 01/25/20 History docusate sodium [Stool Softener] 100 mg PO BID@02/01/20 02/16/20 02/16/20 History fenofibrate 54 mg PO DAILY@02/01/20 02/16/20 01/31/20 History furosemide 40 mg PO DAILY@02/01/20 02/16/20 01/31/20 History gabapentin 300 mg PO TID@,,02/01/20 02/16/20 01/31/20 History metformin 500 mg PO DAILY@02/01/20 02/16/20 01/31/20 History methylcellulose (laxative) 500 mg PO DAILY@02/01/20 02/16/20 01/31/20 History pantoprazole 20 mg PO DAILY@02/01/20 02/16/20 01/31/20 History pravastatin 10 mg PO DAILY@02/01/20 02/16/20 01/31/20 History Probiotic 1 tab PO DAILY@0700 02/16/20 02/16/20 Unknown History amoxicillin-pot clavulanate 1 tab PO BID@07,02/16/20 02/16/20 02/16/20 History hydrocodone-acetaminophen 1 tab PO Q6H PRN 02/16/20 02/16/20 02/16/20 History levofloxacin 750 mg PO DAILY@0700 02/16/20 02/16/20 02/16/20 History vancomycin 125 mg PO QID@07,11,15,02/16/20 02/16/20 02/16/20 History Allergies Allergy/AdvReac Type Severity Reaction Status Date / Time codeine Allergy ALGY-Hives Verified 02/01/20 06:18 PFSH Acute PFSH: Medical History Anemia Arthritis Chronic back pain Diabetes mellitus Hernia History of DVT (deep vein thrombosis) SBO (small bowel obstruction) Sinusitis Surgical History History of 2 sections History of breast biopsy History of ventral hernia repair Multiple 02/01 2020 -- incarcerated recurrent ventral hernia with necrotic small bowel Repair of recurrent ventral hernia with mesh, segmental small bowel resection, incidental appendectomy Mass of soft tissue of forearm Benign -- excised 2013 Status post carpal tunnel release of both wrists Family History Other CAD (coronary artery disease) Social History Smoking and tobacco status: never smoked Alcohol intake: never Vitals/I&O/Wt Last Vital Signs Temp 98.9 F 02/16/20 13:07 Pulse 70 02/16/20 18:14 Resp 16 02/16/20 18:14 BP 136/92 02/16/20 17:00 Pulse Ox 97 02/16/20 17:00 Weight last 48 hrs Weight 181.437 kg Physical Exam Narrative: EXAM NARRATIVE: GEN: Awake, alert and oriented, no acute distress CVS: S1S2 N RS: CTA B/L Abd: Soft, obese, erythema/induration noted at suture sites, pannus inferior to the suture line firm to palpation, no gross erythema, mild tenderness on palpation, MELONY drain in place , serosanginous fluid noted 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: no focal neuro deficits Ext: stage 1 pressure ulcer over lower back, patient reports more ulcers around buttock, however not seen on exam as difficult to reposition patient Urinary Catheter Management^: Kuo: Cath Placed During This Visit: no Reason for Continuing Indwelling Catheter: Other Data : 02/16/20 15:15 02/16/20 15:15 Micro: Microbiology 02/16/20 18:51 Blood Culture - Preliminary Blood SPECIMEN COLLECTED CT Abd/Pel: I personally reviewed and interpreted this imaging study as follows: My impression: jejunitis and pannicultis per CT read A&P Assessment and plan (1) Panniculitis: Status: Acute (2) Jejunitis: Status: Acute (3) Diabetes mellitus: Status: Acute Qualifiers: Diabetes mellitus type: type 2 Diabetes mellitus 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 difficile diarrhea: Status: Acute Additional A&P Information Admit to med/surg # Recent incarcerated hernia s/p surgical repair on 02/01 # Jeujinitis as seen on CT, clinically patient c/o abdominal bloating, dyspepsia , findings may be related to post op inflammation vs infectious changes, empiric Piperaccilin-Tazobactam for now, started kiana dose in ER Bowel rest prn zofran NPO except ice chips Surgery consult with Dr. Perry #Panniculitis: abx coverage as above differentials include lymhedema vs post op changes from recent panniculectomy #leukocytosis : likely multifactorial related to possible infection, dehydration from emesis # C diff diarrhea: po vancomycin to continue Attestations Medical Necessity Statement*: >2midnight admission anticipated for above issues, need for iv abx ,monitor bowel function Coding Level of Care Code Acute Driver'S License Reviewing Officer for [facility] Diagnoses Panniculitis M79.3 Jejunitis K52.9 Diabetes mellitus E11.69 Diabetes mellitus type: type 2 Diabetes mellitus care home insulin use: without care home use Diabetes mellitus complication status: with other specified complication Recurrent incisional hernia K43.2 C. difficile diarrhea A04.72
[2020-02-16 21:44] LABS: Hematocrit 33.2 % (37.0-47.0); Hemoglobin 9.7 g/dL (11.5-15.3)
[2020-02-16] MEDS: enoxaparin 40 mg/0.4 mL Syringe SUBCUT (22:13)
[2020-02-16] MEDS: sodium chloride 0.9% 1,000 ML 50 ML IV (22:15)
[2020-02-16] MEDS: D5-NS 0.45% + KCL 20 mEq 20 MEQ/1,000 ML BAG 150 MEQ IV (23:40)
[2020-02-17] VITALS (8 sets, daily range): BP systolic 112–146; BP diastolic 66–83; PULSE 89–101; RESP 16–20; TEMP 36.8–37.7; O2SAT 91–95
[2020-02-17] MEDS: acetaminophen 325 mg Tablet 650 MG PO ×3 (00:50→15:05)
[2020-02-17] MEDS: piperacillin-tazobactam 3.375 GM in sodium chloride 0.9% (plus) 50 ML IV ×3 (01:12→18:38)
[2020-02-17 05:44] LABS: Basophils # 0.1 10^3/uL (0.0-0.1); Basophils % 0.6 %; Eosinophils % 0.1 %; Hematocrit 31.8 % (37.0-47.0); Hemoglobin 9.4 g/dL (11.5-15.3); Mean Corpuscular HGB Conc 29.6 g/dL (30.0-36.0); Mean Corpuscular Hemoglobin 24.2 pg (28.0-34.0); Mean Corpuscular Volume 81.7 fL (81-99); Mean Platelet Volume 9.5 fL (7.4-10.4); Monocytes # 1.4 10^3/uL (0.2-0.9); Monocytes % 7.4 %; Neutrophils # 16.93 10^3/uL (1.8-7.7); Neutrophils % 86.5 %; Nucleated Red Blood Cells % 0.1 %; Platelet Count 397 10^3/cmm (130-400); Red Blood Count 3.89 10^6/uL (4.1-5.3); Red Cell Distribution Width 19.5 % (12.1-15.1); White Blood Count 19.6 10^3/uL (4.0-10.0)
[2020-02-17 06:20] LABS: Alanine Aminotransferase 15 U/L (0-33); Albumin Level 2.9 g/dL (3.5-5.2); Alkaline Phosphatase 68 IU/L (35-105); Anion Gap 13.8 (5-19); Aspartate Amino Transferase 17 U/L (0-32); Blood Urea Nitrogen 11 mg/dL (6-20); Carbon Dioxide 25 mmol/L (22-29); Chloride 99 mmol/L (98-107); Globulin 3.8 g/dL (1.3-4.6); Glomerular Filtration Rate 87.2 mL/min (90-130); Glucose 161 mg/dL (65-115); Osmolality Calculated 281 mOsm/kg (285-295); Potassium 3.8 mmol/L (3.5-5.1); Sodium 134 mmol/L (136-145); Total Bilirubin 0.5 mg/dL (0.15-1.2); Total Protein 6.7 g/dL (6.6-8.7)
--- NOTE | 2020-02-17 07:46 | NUR.SHIFT ---
Patient had an uneventful night. Patient's pain was well controlled by tylenol per apr.
[2020-02-17 07:54] LABS: Glucose Point of Care 157 mg/dL (70-110)
[2020-02-17] MEDS: D5-NS 0.45% + KCL 20 mEq 20 MEQ/1,000 ML BAG 150 MEQ IV (08:39)
--- NOTE | 2020-02-17 09:14 | PM.PN ---
Subjective Subjective: Interval history: INTERVAL NOTE: Sonya is a 54-year-old white female well-known to me from emergent reduction and repair of recurrent ventral hernias a little over 2 weeks ago. Unfortunately, she had a necrotic segment of small bowel that had to be resected, and an incidental appendectomy was also performed. Her postoperative course was prolonged by her super obesity, several days on the ventilator postoperatively, lack of activity and motivation, etc. She was finally discharged last week. Her post discharge course was further complicated by her C. difficile test coming back positive. She was started on oral vancomycin as an outpatient. The patient says she was doing well at home until the day before yesterday when she started developing some abdominal discomfort. She had some nausea and vomited, as well. She said her diarrhea actually ceased that morning. I saw her in the office yesterday and she did not appear to feel well. She did have some bowel sounds but they were definitely hypoactive. Her incision itself look good. Her pannus still had some edematous changes but no significant erythema. She still has a Chandana drain in in the subcutaneous layer that was draining serous/serosanguineous fluid. Just based on how she was feeling, I had suggested that we put her back in the hospital but she was fairly adamant at that time that she did not want to go back in the hospital. Later in the day she apparently changed her mind and went through the emergency department. A CAT scan was done which showed some jejunitis and panniculitis. She was seen and admitted by the hospitalist service, for which I am thankful. She was started on some Zosyn and her oral vancomycin was continued. The patient says she already feels better this morning. She is not aware of any flatus that she is passing, however. Vitals/I&O/Wt Last Vital Signs Temp 98.4 F 02/17/20 07:46 Pulse 89 02/17/20 07:46 Resp 17 02/17/20 07:46 BP 129/80 02/17/20 07:46 Pulse Ox 93 02/17/20 07:46 02/16/20 02/17/20 02/17/20 22:59 06:59 14:59 Intake Total 50 / 1050 1000 / 1050 Output Total 610 / 610 70 / 70 Balance 50 / 440 390 / 440 -70 / -70 Weight last 48 hrs Weight 400 lb Physical Exam Narrative: EXAM NARRATIVE: The patient's incision remains clean. Every other nylon suture was removed this morning. The inferior aspect of her pannus is still somewhat edematous and pitted but there is no significant erythema present. The Chandana drain has some serous fluid in the bulb. Urinary Catheter Management^: Kuo: Reason for Continuing Indwelling Catheter: Accurate Measurement of Urinary Output in Critically Ill Patients Data : 02/17/20 05:33 02/17/20 05:33 Micro: Microbiology 02/16/20 15:38 Gram Stain - Final Peritoneal Fluid 02/16/20 15:15 Blood Culture - Preliminary Blood SPECIMEN COLLECTED 02/16/20 18:51 Blood Culture - Preliminary Blood SPECIMEN COLLECTED Gram Stain Final Chandana drain fluid 02/17/20-0752 Result RARE WHITE BLOOD CELLS NO ORGANISMS SEEN A&P Assessment and plan (1) Panniculitis: This may be more a factor of fluid retention as opposed to actual infection, but I am certainly not opposed to antibiotic coverage given the fact that she had necrotic bowel incarcerated in her hernia, and polypropylene mesh had to be used in her repair. Status: Acute (2) Jejunitis: Continue current treatment. Status: Acute (3) C. difficile diarrhea: On oral vancomycin. Status: Acute Attestations Medical Necessity Statement*: See admitting service's notation. Coding Level of Care Code Acute Administration Manager for [facility] Diagnoses Panniculitis M79.3 Jejunitis K52.9 C. difficile diarrhea A04.72
[2020-02-17 10:52] LABS: Glucose Point of Care 156 mg/dL (70-110)
--- NOTE | 2020-02-17 14:15 | P.PN_ITS ---
Subjective Subjective: Interval history: no acute interim events since last seen, afebrile, hemodynamicall stable, still has not had flatus , leukocytosis increased to 19 Medications: Reviewed: Yes Vitals/I&O/Wt Last Vital Signs Temp 98.3 F 02/17/20 12:00 Pulse 101 H 02/17/20 12:00 Resp 16 02/17/20 12:00 BP 136/77 02/17/20 12:00 Pulse Ox 92 02/17/20 12:00 02/16/20 02/17/20 02/17/20 22:59 06:59 14:59 Intake Total 50 / 50 1050 / 1100 Output Total 610 / 610 290 / 290 Balance 50 / 50 440 / 490 -290 / -290 Weight last 48 hrs Weight 181.437 kg Physical Exam Narrative: EXAM NARRATIVE: GEN: Awake, alert and oriented, no acute distress CVS: S1S2 N RS: CTA B/L Abd: Soft, obese, non tender, pannus inferior to the suture line edematous SUBMARINE 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: no focal neuro deficits Urinary Catheter Management^: Kuo: Cath Placed During This Visit: no Reason for Continuing Indwelling Catheter: Accurate Measurement of Urinary Output in Critically Ill Patients Data : 02/17/20 05:33 02/17/20 05:33 Micro: Microbiology 02/16/20 15:38 Gram Stain - Final Peritoneal Fluid 02/16/20 15:15 Blood Culture - Preliminary Blood SPECIMEN COLLECTED 02/16/20 18:51 Blood Culture - Preliminary Blood SPECIMEN COLLECTED A&P Assessment and plan (1) Panniculitis: Status: Acute (2) Jejunitis: Status: Acute (3) Diabetes mellitus: Status: Acute Qualifiers: Diabetes mellitus type: type 2 Diabetes mellitus rn long term care insulin use: without rn long term care use Diabetes mellitus complication status: with other specified complication Qualified Code(s): E11.69 - Type 2 diabetes mellitus with other specified complication (4) Recurrent incisional hernia: Status: Acute (5) C. difficile diarrhea: Status: Acute Additional A&P Information # Recent incarcerated hernia s/p surgical repair on 02/01 # Jeujinitis as seen on CT, clinically patient c/o abdominal bloating, dyspepsia , findings may be related to post op inflammation vs infectious changes, empiric Piperaccilin-Tazobactam to continue Bowel rest prn zofran NPO except ice chips ,diet advancement per surgery awaiting return of bowel function #Panniculitis: abx coverage as above differentials include lymhedema vs post op changes from recent panniculectomy does not extrenally appear to be grossly infected #leukocytosis : likely multifactorial related to possible infection, dehydration from emesis , monitor for now # C diff diarrhea: po vancomycin 125mg q6h to continue Attestations Medical Necessity Statement*: ongoing need for iv abx for panniculitis,jejunitis, recent bowel incarceration , monitoring bowel function Coding Level of Care Code Acute 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 difficile diarrhea A04.72
[2020-02-17 17:42] LABS: Glucose Point of Care 134 mg/dL (70-110)
[2020-02-17] MEDS: sodium chloride 0.9% 1,000 ML 50 ML IV (18:37)
[2020-02-17 18:58] LABS: SARS Covid-2 Antigen Negative (Negative)
[2020-02-17 21:08] LABS: Glucose Point of Care 127 mg/dL (70-110)
[2020-02-17] MEDS: enoxaparin 40 mg/0.4 mL Syringe SUBCUT (22:34)
[2020-02-18] VITALS (12 sets, daily range): BP systolic 112–135; BP diastolic 70–83; PULSE 87–99; RESP 17–24; TEMP 36.9–37.9; O2SAT 90–97
[2020-02-18] MEDS: piperacillin-tazobactam 3.375 GM in sodium chloride 0.9% (plus) 50 ML IV ×3 (01:48→18:16)
[2020-02-18] MEDS: morphine 4 mg/mL SDV 1 mL 2 MG IVP ×5 (02:14→22:59)
[2020-02-18 05:52] LABS: Basophils # 0.1 10^3/uL (0.0-0.1); Basophils % 0.7 %; Eosinophils # 0.1 10^3/uL (0.0-0.8); Eosinophils % 0.5 %; Hematocrit 27.4 % (37.0-47.0); Hemoglobin 8.1 g/dL (11.5-15.3); Lymphocytes # 1.2 10^3/uL (0.8-4.8); Lymphocytes % 7.9 %; Mean Corpuscular HGB Conc 29.6 g/dL (30.0-36.0); Mean Corpuscular Hemoglobin 24.1 pg (28.0-34.0); Mean Corpuscular Volume 81.5 fL (81-99); Mean Platelet Volume 9.4 fL (7.4-10.4); Monocytes % 6.7 %; Neutrophils # 12.78 10^3/uL (1.8-7.7); Neutrophils % 83.7 %; Nucleated Red Blood Cells % 0 %; Platelet Count 356 10^3/cmm (130-400); Red Blood Count 3.36 10^6/uL (4.1-5.3); Red Cell Distribution Width 19.1 % (12.1-15.1); White Blood Count 15.3 10^3/uL (4.0-10.0)
[2020-02-18 06:11] LABS: Alanine Aminotransferase 12 U/L (0-33); Albumin Level 2.5 g/dL (3.5-5.2); Alkaline Phosphatase 70 IU/L (35-105); Anion Gap 9.7 (5-19); Aspartate Amino Transferase 14 U/L (0-32); Blood Urea Nitrogen 8 mg/dL (6-20); Calcium 8.1 mg/dL (8.5-10.5); Carbon Dioxide 27 mmol/L (22-29); Chloride 99 mmol/L (98-107); Globulin 3.5 g/dL (1.3-4.6); Glomerular Filtration Rate 128.6 mL/min (90-130); Glucose 121 mg/dL (65-115); Osmolality Calculated 274 mOsm/kg (285-295); Potassium 3.7 mmol/L (3.5-5.1); Sodium 132 mmol/L (136-145); Total Bilirubin 0.4 mg/dL (0.15-1.2)
[2020-02-18 06:39] LABS: Glucose Point of Care 119 mg/dL (70-110)
--- NOTE | 2020-02-18 06:53 | PM.PN ---
Subjective Subjective: Interval history: The patient started having loose bowel movements again yesterday morning. She still has some abdominal discomfort. Vitals/I&O/Wt Last Vital Signs Temp 98.4 F 02/18/20 04:00 Pulse 99 02/18/20 04:00 Resp 22 H 02/18/20 04:00 BP 119/79 02/18/20 04:00 Pulse Ox 90 02/18/20 04:00 02/17/20 02/17/20 02/18/20 14:59 22:59 06:59 Intake Total 1100 / 1700 600 / 1700 Output Total 290 / 1905 1080 / 1905 535 / 1905 Balance -290 / -205 20 / -205 65 / -205 Weight last 48 hrs Weight 400 lb Physical Exam Narrative: EXAM NARRATIVE: Bowel sounds still seem hypoactive to me. She does have scattered tenderness. Urinary Catheter Management^: Kuo: Cath Placed During This Visit: no Reason for Continuing Indwelling Catheter: Accurate Measurement of Urinary Output in Critically Ill Patients Data : 02/18/20 05:31 02/18/20 05:31 Micro: Microbiology 02/16/20 15:15 Blood Culture - Preliminary Blood NEGATIVE TO DATE 02/16/20 18:51 Blood Culture - Preliminary Blood NEGATIVE TO DATE 02/16/20 15:38 Gram Stain - Final Peritoneal Fluid A&P Assessment and plan (1) Panniculitis: This may be more a factor of fluid retention as opposed to actual infection, but I am certainly not opposed to antibiotic coverage given the fact that she had necrotic bowel incarcerated in her hernia, and polypropylene mesh had to be used in her repair. Status: Acute (2) Jejunitis: Continue current treatment. Status: Acute (3) C. difficile diarrhea: On oral vancomycin. Once again having loose bowel movements. Status: Acute Attestations Medical Necessity Statement*: See admitting service's notation. Coding Level of Care Code Acute Skate Shop Attendant for Natasha Bell Diagnoses Panniculitis M79.3 Jejunitis K52.9 C. difficile diarrhea A04.72
[2020-02-18 10:52] LABS: Glucose Point of Care 122 mg/dL (70-110)
--- NOTE | 2020-02-18 14:02 | P.PN_ITS ---
Subjective Subjective: Interval history: Patient continued to have multiple watery diarrhea episodes. This was associated with abdominal pain. Addition did have nausea however no emesis. Noted low-grade fevers. Medications: Reviewed: Yes Vitals/I&O/Wt Last Vital Signs Temp 99.6 F 02/18/20 15:39 Pulse 91 02/18/20 15:39 Resp 17 02/18/20 18:20 BP 112/70 02/18/20 15:39 Pulse Ox 94 02/18/20 18:20 02/18/20 02/18/20 02/18/20 06:59 14:59 22:59 Intake Total 650 / 1750 1370 / 1370 120 / 1490 Output Total 535 / 1905 120 / 120 80 / 200 Balance 115 / -155 1250 / 1250 40 / 1290 Physical Exam Narrative: EXAM NARRATIVE: GEN: Awake, alert and oriented, no acute distress CVS: S1S2 N RS: CTA B/L Abd: Soft, obese, non tender, pannus inferior to the suture line edematous, drain in place TERRY CLOTH CUTTER HAND: no focal neuro deficits Urinary Catheter Management^: Kuo: Cath Placed During This Visit: no Reason for Continuing Indwelling Catheter: Accurate Measurement of Urinary Output in Critically Ill Patients Data : 02/18/20 05:31 02/18/20 05:31 Micro: Microbiology 02/16/20 15:38 Gram Stain - Final Peritoneal Fluid Body Fluid Culture - Preliminary 02/16/20 15:15 Blood Culture - Preliminary Blood NEGATIVE TO DATE 02/16/20 18:51 Blood Culture - Preliminary Blood NEGATIVE TO DATE A&P Assessment and plan (1) Panniculitis: Status: Acute (2) Jejunitis: Status: Acute (3) Diabetes mellitus: Status: Acute Qualifiers: Diabetes mellitus type: type 2 Diabetes mellitus senior living insulin use: without senior living use Diabetes mellitus complication status: with other specified complication Qualified Code(s): E11.69 - Type 2 diabetes mellitus with other specified complication (4) Recurrent incisional hernia: Status: Acute (5) C. difficile diarrhea: Status: Acute Additional A&P Information # CDiff colitis # Recent incarcerated hernia s/p surgical repair on 02/01 # Jeujinitis # Panniculitis # Hyperlipidemia # GI ppx # DVT pps Plan: Continued to have loose watery diarrhea, Will increase vancomycin to 250 MG PO QID Probiotics Zosyn currently emperically May consider stopping due to worsneing c-dff Cautious fluid hydration Pain control General surgery on board. cbc cmp in am Attestations Medical Necessity Statement*: Patient require further hospitalization for management of C diff colitis requiring p.o. vancomycin and possible additional panniculitis requiring IV antibiotics. Time Spent in Patient Care: Greater than 35 minutes (>than 50% of time spent in counselling and/or direct pt care on unit) . Coding Level of Care Code Acute District Recruiter for [facility] [place] Fwd Diagnoses Panniculitis M79.3 Jejunitis K52.9 Diabetes mellitus E11.69 Diabetes mellitus type: type 2 Diabetes mellitus long term care phlebotomist insulin use: without long term care phlebotomist use Diabetes mellitus complication status: with other specified complication Recurrent incisional hernia K43.2 C. difficile diarrhea A04.72
[2020-02-18 16:57] LABS: Glucose Point of Care 105 mg/dL (70-110)
[2020-02-18] MEDS: sodium chloride 0.9% 1,000 ML 50 ML IV ×2 (18:16→20:20)
[2020-02-18] MEDS: enoxaparin 40 mg/0.4 mL Syringe SUBCUT (20:17)
[2020-02-18 21:08] LABS: Glucose Point of Care 101 mg/dL (70-110)
[2020-02-19] VITALS (12 sets, daily range): BP systolic 121–143; BP diastolic 77–92; PULSE 87–96; RESP 16–24; TEMP 36.3–37.6; O2SAT 93–96
[2020-02-19 02:28] LABS: Basophils # 0.1 10^3/uL (0.0-0.1); Basophils % 1.1 %; Eosinophils # 0.3 10^3/uL (0.0-0.8); Eosinophils % 2.2 %; Hematocrit 28.2 % (37.0-47.0); Hemoglobin 8.2 g/dL (11.5-15.3); Lymphocytes # 1.2 10^3/uL (0.8-4.8); Lymphocytes % 10.6 %; Mean Corpuscular HGB Conc 29.1 g/dL (30.0-36.0); Mean Corpuscular Hemoglobin 23.8 pg (28.0-34.0); Mean Platelet Volume 9.1 fL (7.4-10.4); Monocytes # 0.9 10^3/uL (0.2-0.9); Monocytes % 7.6 %; Neutrophils # 9.07 10^3/uL (1.8-7.7); Neutrophils % 78.2 %; Nucleated Red Blood Cells % 0.2 %; Platelet Count 370 10^3/cmm (130-400); Red Blood Count 3.44 10^6/uL (4.1-5.3); Red Cell Distribution Width 18.9 % (12.1-15.1); White Blood Count 11.6 10^3/uL (4.0-10.0)
[2020-02-19 03:01] LABS: Alanine Aminotransferase 10 U/L (0-33); Albumin Level 2.5 g/dL (3.5-5.2); Alkaline Phosphatase 80 IU/L (35-105); Anion Gap 12.9 (5-19); Aspartate Amino Transferase 16 U/L (0-32); Blood Urea Nitrogen 6 mg/dL (6-20); Carbon Dioxide 27 mmol/L (22-29); Chloride 100 mmol/L (98-107); Globulin 3.7 g/dL (1.3-4.6); Glomerular Filtration Rate 128.6 mL/min (90-130); Glucose 106 mg/dL (65-115); Osmolality Calculated 280 mOsm/kg (285-295); Potassium 3.9 mmol/L (3.5-5.1); Sodium 136 mmol/L (136-145); Total Bilirubin 0.3 mg/dL (0.15-1.2); Total Protein 6.2 g/dL (6.6-8.7)
[2020-02-19] MEDS: piperacillin-tazobactam 3.375 GM in sodium chloride 0.9% (plus) 50 ML IV ×2 (03:17→11:00)
[2020-02-19] MEDS: ondansetron 2 mg/ML SDV 2 mL 4 MG IVP ×3 (03:55→22:12)
[2020-02-19] MEDS: morphine 4 mg/mL SDV 1 mL 2 MG IVP ×4 (03:56→22:12)
[2020-02-19 07:12] LABS: Glucose Point of Care 106 mg/dL (70-110)
--- NOTE | 2020-02-19 08:18 | P.PN_ITS ---
Subjective Subjective: Interval history: The patient says her diarrhea has again ceased but she has developed nausea and some abdominal cramping down low. Vitals/I&O/Wt Last Vital Signs Temp 98.4 F 02/19/20 03:45 Pulse 96 02/19/20 03:45 Resp 18 02/19/20 03:56 BP 143/92 02/19/20 03:45 Pulse Ox 93 02/19/20 03:45 02/18/20 02/19/20 02/19/20 22:59 06:59 14:59 Intake Total 513.333 / 1883.333 Output Total 1030 / 2045 895 / 2045 Balance -516.667 / -161.667 -895 / -161.667 Physical Exam Narrative: EXAM NARRATIVE: Patient has better bowel sounds today than she has had since pain readmitted. She still has scattered abdominal tenderness. Urinary Catheter Management^: Kuo: Cath Placed During This Visit: no Reason for Continuing Indwelling Catheter: Accurate Measurement of Urinary Output in Critically Ill Patients Data : 02/19/20 02:12 02/19/20 02:12 Micro: Microbiology 02/16/20 15:38 Gram Stain - Final Peritoneal Fluid Body Fluid Culture - Preliminary A&P Assessment and plan (1) Panniculitis: I suspect that this is more lymphedema as opposed to an actual infection. Status: Acute (2) Jejunitis: Originally seen on the CT. I would not be opposed to the patient being off of other antibiotics while she is being treated for Clostridium diarrhea. Status: Acute (3) C. difficile diarrhea: On oral vancomycin. Dose has been increased to 250 mg 4 times daily. Status: Acute Attestations Medical Necessity Statement*: See admitting service's notation. Coding Level of Care Code Acute Surface Ship Usw Supervisor for [facility] Diagnoses Panniculitis M79.3 Jejunitis K52.9 C. difficile diarrhea A04.72
[2020-02-19 10:59] LABS: Glucose Point of Care 108 mg/dL (70-110)
[2020-02-19] MEDS: acetaminophen 325 mg Tablet 650 MG PO (11:54)
--- NOTE | 2020-02-19 13:00 | P.PN_ITS ---
Subjective Subjective: Interval history: Patient had resolution of diarrhea. Noted a slightly more formed bowel movement this a.m.. Complaining of abdominal pain and nausea. No fevers overnight. Patient states she is unable to tolerate any oral intake. Currently is on a clear liquid diet. Did not tolerate broth. Medications: Reviewed: Yes Vitals/I&O/Wt Last Vital Signs Temp 98.0 F 02/19/20 11:44 Pulse 91 02/19/20 11:44 Resp 18 02/19/20 11:44 BP 125/80 02/19/20 11:44 Pulse Ox 94 02/19/20 11:44 02/18/20 02/19/20 02/19/20 22:59 06:59 14:59 Intake Total 513.333 / 1883.333 50 / 50 Output Total 1030 / 1150 895 / 2045 Balance -516.667 / 733.333 -895 / -161.667 50 / 50 Physical Exam Narrative: EXAM NARRATIVE: GEN: Awake, alert and oriented, no acute distress CVS: S1S2 N RS: CTA B/L Abd: Soft, obese, non tender, pannus inferior to the suture line edematous, drain in place TUBULAR STOCK GLASS BULB MACHINE FORMER: no focal neuro deficits Urinary Catheter Management^: Kuo: Cath Placed During This Visit: no Reason for Continuing Indwelling Catheter: Accurate Measurement of Urinary Output in Critically Ill Patients Data : 02/19/20 02:12 02/19/20 02:12 Micro: Microbiology 02/16/20 15:38 Gram Stain - Final Peritoneal Fluid Body Fluid Culture - Preliminary 02/17/20 19:00 Urine Culture - Preliminary Urine Catheterized A&P Assessment and plan (1) Panniculitis: Status: Acute (2) Jejunitis: Status: Acute (3) Diabetes mellitus: Status: Acute Qualifiers: Diabetes mellitus type: type 2 Diabetes mellitus fci insulin use: without fci use Diabetes mellitus complication status: with other specif ied complication Qualified Code(s): E11.69 - Type 2 diabetes mellitus with other specified complication (4) Recurrent incisional hernia: Status: Acute (5) C. difficile diarrhea: Status: Acute Additional A&P Information # CDiff colitis # Recent incarcerated hernia s/p surgical repair on 02/01 # Jeujinitis # Panniculitis # Hyperlipidemia # GI ppx # DVT pps Plan: Diarrhea improving Vancomycin to 250 MG PO QID Probiotics Will d/c IV zosyn NS at 50 cc/hr Repeat labs in AM Pain control General surgery on board. Will consult PT for eval Attestations Medical Necessity Statement*: Require continued hospitalization for management of C diff colitis, abdominal pain. Time Spent in Patient Care: Greater than 35 minutes (>than 50% of time spent in counselling and/or direct pt care on unit) . Coding Level of Care Code Acute Lathe Setup Operator for [facility] Fwd Diagnoses Panniculitis M79.3 Jejunitis K52.9 Diabetes mellitus E11.69 Diabetes mellitus type: type 2 Diabetes mellitus fci insulin use: without fci use Diabetes mellitus complication status: with other specified complication Recurrent incisional hernia K43.2 C. difficile diarrhea A04.72
[2020-02-19 17:07] LABS: Glucose Point of Care 117 mg/dL (70-110)
[2020-02-19 21:23] LABS: Glucose Point of Care 99 mg/dL (70-110)
[2020-02-19] MEDS: enoxaparin 40 mg/0.4 mL Syringe SUBCUT (21:34)
[2020-02-19] MEDS: sodium chloride 0.9% 1,000 ML 50 ML IV (21:48)
[2020-02-20] VITALS (12 sets, daily range): BP systolic 102–131; BP diastolic 63–88; PULSE 73–93; RESP 16–20; TEMP 36.4–37.8; O2SAT 90–98
[2020-02-20] MEDS: morphine 4 mg/mL SDV 1 mL 2 MG IVP ×4 (03:27→18:19)
[2020-02-20 06:14] LABS: Basophils # 0.1 10^3/uL (0.0-0.1); Basophils % 1.1 %; Eosinophils # 0.4 10^3/uL (0.0-0.8); Eosinophils % 3.7 %; Hematocrit 28.6 % (37.0-47.0); Hemoglobin 8.3 g/dL (11.5-15.3); Lymphocytes # 1.3 10^3/uL (0.8-4.8); Lymphocytes % 13.1 %; Mean Corpuscular Hemoglobin 23.7 pg (28.0-34.0); Mean Corpuscular Volume 81.7 fL (81-99); Monocytes # 0.8 10^3/uL (0.2-0.9); Monocytes % 8.1 %; Neutrophils # 7.01 10^3/uL (1.8-7.7); Neutrophils % 73.6 %; Nucleated Red Blood Cells % 0 %; Platelet Count 399 10^3/cmm (130-400); Red Cell Distribution Width 18.7 % (12.1-15.1); White Blood Count 9.5 10^3/uL (4.0-10.0)
[2020-02-20 07:26] LABS: Glucose Point of Care 97 mg/dL (70-110)
[2020-02-20 08:16] LABS: Alanine Aminotransferase 9 U/L (0-33); Albumin Level 2.7 g/dL (3.5-5.2); Alkaline Phosphatase 75 IU/L (35-105); Aspartate Amino Transferase 15 U/L (0-32); Blood Urea Nitrogen 5 mg/dL (6-20); Calcium 7.6 mg/dL (8.5-10.5); Carbon Dioxide 28 mmol/L (22-29); Chloride 99 mmol/L (98-107); Globulin 3.4 g/dL (1.3-4.6); Glomerular Filtration Rate 128.6 mL/min (90-130); Glucose 92 mg/dL (65-115); Osmolality Calculated 275 mOsm/kg (285-295); Sodium 134 mmol/L (136-145); Total Bilirubin 0.2 mg/dL (0.15-1.2); Total Protein 6.1 g/dL (6.6-8.7)
[2020-02-20] MEDS: acetaminophen 325 mg Tablet 650 MG PO ×2 (09:43→16:03)
[2020-02-20] MEDS: ondansetron 2 mg/ML SDV 2 mL 4 MG IVP ×2 (09:49→18:19)
--- NOTE | 2020-02-20 10:15 | P.PN_ITS ---
Subjective Subjective: Interval history: The patient is having bowel movements again. She reportedly had more of a solid bowel movement yesterday but her bowel movement this morning was still somewhat runny. She says after she has a bowel movement she gets some abdominal discomfort. She thinks the broth on the clear liquid tray is making her nauseated and she would like to try something on the full liquid tray. Vitals/I&O/Wt Last Vital Signs Temp 99.0 F 02/20/20 08:00 Pulse 73 02/20/20 08:00 Resp 18 02/20/20 09:41 BP 115/63 02/20/20 08:00 Pulse Ox 91 02/20/20 08:00 02/19/20 02/20/20 02/20/20 22:59 06:59 14:59 Intake Total 1000 / 1650 600 / 1650 240 / 240 Output Total 1270 / 2455 880 / 2455 Balance -270 / -805 -280 / -805 240 / 240 Physical Exam Narrative: EXAM NARRATIVE: Bowel sounds are present. The incision looks good. Urinary Catheter Management^: Kuo: Cath Placed During This Visit: no Reason for Continuing Indwelling Catheter: Accurate Measurement of Urinary Output in Critically Ill Patients Data : 02/20/20 05:29 02/20/20 05:29 Micro: Microbiology 02/17/20 19:00 Urine Culture - Final Urine Catheterized 02/16/20 15:38 Gram Stain - Final Peritoneal Fluid Body Fluid Culture - Preliminary A&P Assessment and plan (1) Panniculitis: I suspect that this is more lymphedema as opposed to an actual infection. White blood cell count is normal. Full liquid diet. Status: Acute (2) Jejunitis: Originally seen on the CT. Status: Acute (3) C. difficile diarrhea: On oral vancomycin. Dose has been increased to 250 mg 4 times daily. Status: Acute Attestations Medical Necessity Statement*: See admitting service's notation. Coding Level of Care Code Acute Defensive Fire Control Systems Operator for Natasha Bell Diagnoses Panniculitis M79.3 Jejunitis K52.9 C. difficile diarrhea A04.72
[2020-02-20 12:51] LABS: Glucose Point of Care 94 mg/dL (70-110)
[2020-02-20 17:35] LABS: Glucose Point of Care 84 mg/dL (70-110)
--- NOTE | 2020-02-20 18:40 | PM.PN ---
Subjective Subjective: Interval history: is doing fine.Per General surgery rec diet have been changed to full diet. Her other vitals and labs have reviewed. Medications: Reviewed: Yes Vitals/I&O/Wt Last Vital Signs Temp 99.6 F 02/20/20 15:56 Pulse 79 02/20/20 15:56 Resp 17 02/20/20 18:19 BP 131/88 02/20/20 15:56 Pulse Ox 94 02/20/20 15:56 02/20/20 02/20/20 02/20/20 06:59 14:59 22:59 Intake Total 600 / 1650 240 / 240 Output Total 880 / 2455 Balance -280 / -805 240 / 240 Physical Exam Narrative: EXAM NARRATIVE: EXAM NARRATIVE: GEN: Awake, alert and oriented, no acute distress CVS: S1S2 N RS: CTA B/L Abd: Soft, obese, non tender, pannus inferior to the suture line edematous, drain in place INTELLIGENCE OFFICER BASIC: no focal neuro deficits Urinary Catheter Management^: Kuo: Cath Placed During This Visit: no Reason for Continuing Indwelling Catheter: Accurate Measurement of Urinary Output in Critically Ill Patients Data : 02/20/20 05:29 02/20/20 05:29 Micro: Microbiology 02/16/20 15:38 Gram Stain - Final Peritoneal Fluid Body Fluid Culture - Final 02/17/20 19:00 Urine Culture - Final Urine Catheterized A&P Assessment and plan (1) Panniculitis: Status: Acute (2) Jejunitis: Status: Acute (3) Diabetes mellitus: Status: Acute Qualifiers: Diabetes mellitus type: type 2 Diabetes mellitus termite treater insulin use: without termite treater use Diabetes mellitus complication status: with other specified complication Qualified Code(s): E11.69 - Type 2 diabetes mellitus with other specified complication (4) Recurrent incisional hernia: Status: Acute (5) C. difficile diarrhea: Status: Acute Additional A&P Information # CDiff colitis # Recent incarcerated hernia s/p surgical repair on 02/01 # Jeujinitis # Panniculitis # Hyperlipidemia # GI ppx # DVT pps Plan: Diarrhea improving Vancomycin to 250 MG PO QID Probiotics Will d/c IV zosyn NS at 50 cc/hr Repeat labs in AM Pain control General surgery on board. Will consult PT for eval Attestations Medical Necessity Statement*: Patient require further hospitalization for management of C diff colitis requiring p.o. vancomycin and possible additional panniculitis requiring IV antibiotics. Coding Level of Care Code Acute Family Practice Doctor for [facility] Fwd Diagnoses Panniculitis M79.3 Jejunitis K52.9 Diabetes mellitus E11.69 Diabetes mellitus type: type 2 Diabetes mellitus jail insulin use: without jail use Diabetes mellitus complication status: with other specified complication Recurrent incisional hernia K43.2 C. difficile diarrhea A04.72
[2020-02-20] MEDS: enoxaparin 40 mg/0.4 mL Syringe SUBCUT (20:44)
[2020-02-20 20:52] LABS: Glucose Point of Care 87 mg/dL (70-110)
[2020-02-21] VITALS (7 sets, daily range): BP systolic 102–115; BP diastolic 66–73; PULSE 69–91; RESP 18–20; TEMP 36.5–37.4; O2SAT 91–97
[2020-02-21] MEDS: HYDROcodone-acetaminophen 5-325 mg Tablet 1 TAB PO ×5 (00:23→22:45)
[2020-02-21] MEDS: ondansetron 2 mg/ML SDV 2 mL 4 MG IVP ×2 (03:55→18:10)
[2020-02-21 07:07] LABS: Glucose Point of Care 92 mg/dL (70-110)
--- NOTE | 2020-02-21 11:11 | P.PN_ITS ---
Subjective Subjective: Interval history: The patient's diet has been advanced to a soft diet. She said she had a lot of colicky abdominal cramping last night in the night but continues to have bowel movements and pass flatus. Her last bowel movement was this morning, and remains loose. Vitals/I&O/Wt Last Vital Signs Temp 98.1 F 02/21/20 11:00 Pulse 85 02/21/20 11:00 Resp 18 02/21/20 11:00 BP 112/69 02/21/20 11:00 Pulse Ox 92 02/21/20 11:00 02/20/20 02/21/20 02/21/20 22:59 06:59 14:59 Intake Total 360 / 1350 750 / 1350 Output Total 520 / 2520 2000 / 2520 Balance -160 / -1170 -1250 / -1170 Physical Exam Narrative: EXAM NARRATIVE: The incision looks very good. The edema in the inferior aspect of the skin flap has decreased significantly. The drain continues to put out several 100 cc of serous fluid today. The remainder of the patient's nylon sutures were removed this morning. Urinary Catheter Management^: Kuo: Cath Placed During This Visit: no Reason for Continuing Indwelling Catheter: Accurate Measurement of Urinary Output in Critically Ill Patients Data : 02/20/20 05:29 02/20/20 05:29 Micro: Microbiology 02/16/20 15:38 Gram Stain - Final Peritoneal Fluid Body Fluid Culture - Final 02/17/20 19:00 Urine Culture - Final Urine Catheterized A&P Assessment and plan (1) Panniculitis: The edema in the inferior skin flap has decreased considerably. Things appear to be healing well. Status: Acute (2) Jejunitis: Originally seen on the CAT scan at the time of presentation. The patient may still be having some symptoms of enteritis but overall seems to be improved. Status: Acute (3) C. difficile diarrhea: On oral vancomycin. Dose has been increased to 250 mg 4 times daily. Status: Acute Attestations Medical Necessity Statement*: See admitting service's notation. Coding Level of Care Code Acute Concrete Block Layer for [facility] [place] Diagnoses Panniculitis M79.3 Jejunitis K52.9 C. difficile diarrhea A04.72
[2020-02-21 11:15] LABS: Glucose Point of Care 102 mg/dL (70-110)
[2020-02-21] MEDS: sodium chloride 0.9% 1,000 ML 50 ML IV (12:01)
[2020-02-21] MEDS: acetaminophen 325 mg Tablet 650 MG PO (12:01)
--- NOTE | 2020-02-21 13:49 | P.PN_ITS ---
Subjective Subjective: Interval history: Patient is still complaining of diarrhea,though its frequency has reduced a lot. Her sutures have been removed today, wound site is clean and dry. Vitals and labs have been reviewed. Medications: Reviewed: Yes Vitals/I&O/Wt Last Vital Signs Temp 98.1 F 02/21/20 11:00 Pulse 85 02/21/20 11:00 Resp 18 02/21/20 11:00 BP 112/69 02/21/20 11:00 Pulse Ox 92 02/21/20 11:00 02/20/20 02/21/20 02/21/20 22:59 06:59 14:59 Intake Total 1360 / 1600 750 / 2350 Output Total 520 / 520 2000 / 2520 Balance 840 / 1080 -1250 / -170 Physical Exam Const: COMMON NORMALS: patient oriented x3 HENMT: COMMON NORMALS: normocephalic and atraumatic HEAD & SCALP: normocephalic and atraumatic Chest: COMMONS NORMALS: normal inspection of the chest and normal palpation of entire chest wall CHEST: Yes Symmetrical chest wall rise Resp: COMMON NORMALS: normal respiratory effort, No retractions, No use of accessory muscles and clear to auscultation bilaterally EFFORT & INSPECTION: Yes symmetric chest movement AUSCULTATION: clear to auscultation bilaterally Cardio: COMMON NORMALS: regular rate, regular rhythm, S1 normal heart sound present, S2 normal heart sound present, No gallops present (Cardio), No murmurs present (Cardio), No rub (Cardio) and Peripheral pulses 2+ throughout RATE: regular rate RHYTHM: regular rhythm HEART SOUNDS: S1 normal heart sound present and S2 normal heart sound present PERIPHERAL PULSES: Peripheral pulses 2+ throughout GI: COMMON NORMALS: Normal to inspection, nondistended, normoactive bowel sounds present, Soft to palpation, non-tender, No hepatosplenomegaly present and no masses AUSCULTATION: Yes normoactive bowel sounds PALPATION: Yes Soft to palpation and Yes No hepatosplenomegaly present RECTAL EXAM: deferred Extremity: COMMON NORMALS: no clubbing, cyanosis or edema and no pedal edema Neuro: COMMON NORMALS: patient oriented x3 Urinary Catheter Management^: Kuo: Cath Placed During This Visit: no Reason for Continuing Indwelling Catheter: Accurate Measurement of Urinary Output in Critically Ill Patients Data : 02/20/20 05:29 02/20/20 05:29 Micro: Microbiology 02/16/20 15:38 Gram Stain - Final Peritoneal Fluid Body Fluid Culture - Final 02/17/20 19:00 Urine Culture - Final Urine Catheterized A&P Assessment and plan (1) Panniculitis: Status: Acute (2) Jejunitis: Status: Acute (3) Diabetes mellitus: Status: Acute Qualifiers: Diabetes mellitus type: type 2 Diabetes mellitus oil pump station operator chief insulin use: without oil pump station operator chief use Diabetes mellitus complication status: with other specified complication Qualified Code(s): E11.69 - Type 2 diabetes mellitus with other specified complication (4) Recurrent incisional hernia: Status: Acute (5) C. difficile diarrhea: Status: Acute Additional A&P Information # CDiff colitis # Recent incarcerated hernia s/p surgical repair on 02/01 # Jeujinitis # Panniculitis # Hyperlipidemia # GI ppx # DVT pps Plan: Diarrhea improving Vancomycin to 250 MG PO QID ( 10 days starting 02/17 ) Probiotics Will d/c IV zosyn Repeat labs in AM Pain control General surgery on board. Will consult PT for eval Attestations Medical Necessity Statement*: Patient require further hospitalization for management of C diff colitis requiring p.o. vancomycin and possible additional panniculitis. Coding Level of Care Code Acute Hot Tamale Worker for [facility] Fwd Diagnoses Panniculitis M79.3 Jejunitis K52.9 Diabetes mellitus E11.69 Diabetes mellitus type: type 2 Diabetes mellitus oil pump station operator chief insulin use: without oil pump station operator chief use Diabetes mellitus complication status: with other specified complication Recurrent incisional hernia K43.2 C. difficile diarrhea A04.72
--- NOTE | 2020-02-21 15:25 | PC.PT ---
pt refused, stated she is getting OOB and walking to [facility], will start walking to bathroom though chronic back pain limits distance.
[2020-02-21 17:29] LABS: Glucose Point of Care 84 mg/dL (70-110)
[2020-02-21] MEDS: enoxaparin 40 mg/0.4 mL Syringe SUBCUT (21:20)
[2020-02-21 21:36] LABS: Glucose Point of Care 92 mg/dL (70-110)
[2020-02-22] VITALS (8 sets, daily range): BP systolic 100–144; BP diastolic 61–84; PULSE 74–91; RESP 18–20; TEMP 36.7–37.8; O2SAT 91–97
[2020-02-22] MEDS: HYDROcodone-acetaminophen 5-325 mg Tablet 1 TAB PO ×5 (03:24→20:57)
[2020-02-22 07:05] LABS: Glucose Point of Care 91 mg/dL (70-110)
[2020-02-22] MEDS: sodium chloride 0.9% 1,000 ML 50 ML IV (07:16)
--- NOTE | 2020-02-22 08:46 | PC.PT ---
pt is indep with transfers in/out of bed, walking short distance with [facility], pt refusing therapy. D/C PT services.
[2020-02-22 11:10] LABS: Glucose Point of Care 95 mg/dL (70-110)
--- NOTE | 2020-02-22 12:26 | P.PN_ITS ---
Subjective Subjective: Interval history: She was still having loose stool ( 2-3 Episodes a day ).She is tolerating soft food well. Incision site is clean, and the wound is healing well. Her Vitals and labs have been reviewed. Medications: Reviewed: Yes Vitals/I&O/Wt Last Vital Signs Temp 99.1 F 02/22/20 11:48 Pulse 89 02/22/20 11:48 Resp 18 02/22/20 11:48 BP 144/84 02/22/20 11:48 Pulse Ox 95 02/22/20 11:48 02/21/20 02/22/20 02/22/20 22:59 06:59 14:59 Intake Total 420 / 420 800 / 1220 1202.5 / 1202.5 Output Total 1999 260 / 2260 Balance -1580 / -1580 540 / -1040 1202.5 / 1202.5 Physical Exam Narrative: EXAM NARRATIVE: EXAM NARRATIVE: GEN: Awake, alert and oriented, no acute distress CVS: S1S2 N RS: CTA B/L Abd: Soft, obese, non tender, pannus inferior to the suture line edematous, drain in place AQUATICS LIFEGUARD: no focal neuro deficits Const: COMMON NORMALS: patient oriented x3 HENMT: COMMON NORMALS: normocephalic and atraumatic HEAD & SCALP: normocephalic and atraumatic Chest: COMMONS NORMALS: normal inspection of the chest and normal palpation of entire chest wall CHEST: Yes Symmetrical chest wall rise Resp: COMMON NORMALS: normal respiratory effort, No retractions, No use of accessory muscles and clear to auscultation bilaterally EFFORT & INSPECTION: Yes symmetric chest movement AUSCULTATION: clear to auscultation bilaterally Cardio: COMMON NORMALS: regular rate, regular rhythm, S1 normal heart sound present, S2 normal heart sound present, No gallops present (Cardio), No murmurs present (Cardio), No rub (Cardio) and Peripheral pulses 2+ throughout RATE: regular rate RHYTHM: regular rhythm HEART SOUNDS: S1 normal heart sound present and S2 normal heart sound present PERIPHERAL PULSES: Peripheral pulses 2+ throughout GI: COMMON NORMALS: Soft to palpation and non-tender AUSCULTATION: Yes normoactive bowel sounds PALPATION: Yes Soft to palpation RECTAL EXAM: deferred OTHER: Surgical incision site is clean and wound is healing well Extremity: COMMON NORMALS: no clubbing, cyanosis or edema and no pedal edema Neuro: COMMON NORMALS: patient oriented x3 Urinary Catheter Management^: Kuo: Cath Placed During This Visit: no Reason for Continuing Indwelling Catheter: Accurate Measurement of Urinary Output in Critically Ill Patients Data : 02/20/20 05:29 02/20/20 05:29 Micro: Microbiology 02/16/20 15:15 Blood Culture - Final Blood NO GROWTH AFTER 5 DAYS 02/16/20 18:51 Blood Culture - Final Blood NO GROWTH AFTER 5 DAYS A&P Assessment and plan (1) Panniculitis: Status: Acute (2) Jejunitis: Status: Acute (3) Diabetes mellitus: Status: Acute Qualifiers: Diabetes mellitus type: type 2 Diabetes mellitus watermelon harvesting supervisor insulin use: without fpc use Diabetes mellitus complication status: with other specified complication Qualified Code(s): E11.69 - Type 2 diabetes mellitus with other specified complication (4) Recurrent incisional hernia: Status: Acute (5) C. difficile diarrhea: Status: Acute Additional A&P Information # CDiff colitis # Recent incarcerated hernia s/p surgical repair on 02/01 # Jeujinitis # Panniculitis # Hyperlipidemia # GI ppx # DVT pps Plan: Diarrhea improving Vancomycin to 250 MG PO QID ( 10 days starting 02/17 ) Probiotics Will d/c IV zosyn Repeat labs in AM Pain control General surgery on board. Will consult PT for eval Attestations Medical Necessity Statement*: Patient needs to be in hospital for the management of C.diff Collitis . Coding Level of Care Code Acute Elementary School Registrar for [facility] Diagnoses Panniculitis M79.3 Jejunitis K52.9 Diabetes mellitus E11.69 Diabetes mellitus type: type 2 Diabetes mellitus fpc insulin use: without watermelon harvesting supervisor use Diabetes mellitus complication status: with other specified complication Recurrent incisional hernia K43.2 C. difficile diarrhea A04.72
--- NOTE | 2020-02-22 16:00 | PM.PN ---
Subjective Subjective: Interval history: The patient seems to be in better spirits today. She continues to have loose stool. She is eating soft food. She still has some abdominal cramping at times. Vitals/I&O/Wt Last Vital Signs Temp 98.5 F 02/22/20 15:44 Pulse 74 02/22/20 15:44 Resp 18 02/22/20 15:44 BP 117/62 02/22/20 15:44 Pulse Ox 97 02/22/20 15:44 02/22/20 02/22/20 02/22/20 06:59 14:59 22:59 Intake Total 800 / 1220 1622.5 / 1622.5 Output Total 260 / 2260 1800 / 1800 Balance 540 / -1040 -177.5 / -177.5 Physical Exam Narrative: EXAM NARRATIVE: Surgical wound looks good. Urinary Catheter Management^: Kuo: Cath Placed During This Visit: no Reason for Continuing Indwelling Catheter: Accurate Measurement of Urinary Output in Critically Ill Patients Data : 02/20/20 05:29 02/20/20 05:29 Micro: Microbiology 02/16/20 15:15 Blood Culture - Final Blood NO GROWTH AFTER 5 DAYS 02/16/20 18:51 Blood Culture - Final Blood NO GROWTH AFTER 5 DAYS A&P Assessment and plan (1) Panniculitis: The edema in the inferior skin flap has decreased considerably. Things appear to be healing well. Status: Acute (2) Jejunitis: Originally seen on the CAT scan at the time of presentation. The patient may still be having some symptoms of enteritis but overall seems to be improved. Status: Acute (3) C. difficile diarrhea: On oral vancomycin. Dose has been increased to 250 mg 4 times daily. Status: Acute Attestations Medical Necessity Statement*: See admitting service's notation. Coding Level of Care Code Acute Community Affairs Director for [facility] Arabella Diagnoses Panniculitis M79.3 Jejunitis K52.9 C. difficile diarrhea A04.72
[2020-02-22 17:45] LABS: Glucose Point of Care 91 mg/dL (70-110)
[2020-02-22] MEDS: enoxaparin 40 mg/0.4 mL Syringe SUBCUT (20:58)
[2020-02-22 21:43] LABS: Glucose Point of Care 104 mg/dL (70-110)
[2020-02-23] MEDS: HYDROcodone-acetaminophen 5-325 mg Tablet 1 TAB PO ×4 (00:58→13:11)
[2020-02-23 04:00] VITALS: BP 104/70; PULSE 84; RESP 18; TEMP 37.3; O2SAT 94
[2020-02-23] MEDS: sodium chloride 0.9% 1,000 ML 50 ML IV (05:09)
[2020-02-23 06:42] LABS: Glucose Point of Care 99 mg/dL (70-110)
[2020-02-23 08:00] VITALS: BP 107/70; PULSE 85; RESP 18; TEMP 37.8; O2SAT 93
[2020-02-23 11:19] LABS: Glucose Point of Care 106 mg/dL (70-110)
--- NOTE | 2020-02-23 11:33 | PM.PN ---
Subjective Subjective: Interval history: The patient seems to be doing a little bit better every day. Her bowel movements are slowing down. She did run a low-grade fever last night and says she is having somewhat of a productive cough but it does not sound that out of the ordinary for her. Her IV has gone bad and she was hoping that she would not need another IV. Vitals/I&O/Wt Last Vital Signs Temp 100.0 F H 02/23/20 08:00 Pulse 85 02/23/20 08:00 Resp 18 02/23/20 08:00 BP 107/70 02/23/20 08:00 Pulse Ox 93 02/23/20 08:00 02/22/20 02/23/20 02/23/20 22:59 06:59 14:59 Intake Total 240 / 3822.5 1960 / 3822.5 240 / 240 Output Total 930 / 2755 25 / 2755 Balance -690 / 1067.5 1935 / 1067.5 240 / 240 Physical Exam Narrative: EXAM NARRATIVE: Wound continues to look good. Chandana drain draining serous fluid. Urinary Catheter Management^: Kuo: Cath Placed During This Visit: no Reason for Continuing Indwelling Catheter: Acute Urinary Retention or Obstruction Data : 02/20/20 05:29 02/20/20 05:29 A&P Assessment and plan (1) Panniculitis: The edema in the inferior skin flap has decreased considerably. Things appear to be healing well. Status: Acute (2) Jejunitis: Originally seen on the CAT scan at the time of presentation. Overall seems to be improved. Status: Acute (3) C. difficile diarrhea: On oral vancomycin. Dose has been increased to 250 mg 4 times daily. Status: Acute Attestations Medical Necessity Statement*: See admitting service's notation. Coding Level of Care Code Acute Institutional Nutrition Consultant for [facility] Diagnoses Panniculitis M79.3 Jejunitis K52.9 C. difficile diarrhea A04.72
[2020-02-23 11:51] VITALS: BP 125/79; PULSE 83; RESP 18; TEMP 36.8; O2SAT 95
--- NOTE | 2020-02-23 13:27 | PC.NURSE ---
varela removed 9ml of ns from balloon. pt tolerated it well.
--- NOTE | 2020-02-23 13:50 | P.DS_ITS ---
Discharge Providers Date of Admission: 02/16/20 17:57 Date of Discharge: February 23, 2020 Attending Provider at Admission: Vita Barrett MD Attending Provider at Discharge: Israel Vann MD Primary Care Provider: Henrik Stevens NP Diagnoses at Discharge Discharge Diagnosis (1) Panniculitis: (2) Jejunitis: (3) C. difficile diarrhea: Reason for Visit Reason for Visit: Severe abdominal pain Hospital Course Hospital Course Sonya Barragan is a 54 year old female 54-year-old lady admitted for incarcerated abdominal hernia, with morbid obesity, s/p reduction and repair of an incarcerated recurrent ventral hernia 02/02/2020 with incidental appendectomy and partial panniculectomy. Postop course complicated by respiratory failure , multifactorial related to fluid overload, obesity hypoventilation with diffucult extubation , rhabdomyolysis, transaminitis. She was discharged on 02/08 after having received iv abx treatment with imipenem/vancomycin and iv diuresis with lasix. There was some concern for developing cellulitis over the inferior pannus at the time of discharge, however changes appeared to be stable without progression on po abx Augmentin and levaquin and she was discharged with a course of 1 week. Post discharge her C.diff results came back positive and a prescription for po vancomycin was called in. She has been compaint with the same and has had resolved diarrhea over the last 24 hrs. She presented for f/up to Dr. Klein's office to assess for MELONY drain removal, had an episode of emesis, bloating and was sent back to the ER for concern for SBO/ileus. CT in [facility] ER suggestive of jejunitis and pannciculitis. She was admitted for the management of pannuculitis as well as C.diff colliti. she was kept on I.V abxs as well po vancomycin ( initially on 125 mg po q6h daily which was later chaged to 250 PO QID to complete the 14 days course ). At the time of discharge her diarrhea was improving and she was tolerating oral feed well.Panniculitis was healing well incision site was clean.She was cleared from the surgery standpoint to be discharged and to follow them as outpatient. She was discharged home in stable condition. Cultures :Negative Physical Exam Narrative: EXAM NARRATIVE: [facility] COMMON NORMALS: normocephalic and atraumatic HEAD & SCALP: normocephalic and atraumatic Chest COMMONS NORMALS: normal inspection of the chest and normal palpation of entire chest wall CHEST: Yes Symmetrical chest wall rise Resp COMMON NORMALS: normal respiratory effort, No retractions, No use of accessory muscles and clear to auscultation bilaterally EFFORT & INSPECTION: Yes symmetric chest movement AUSCULTATION: clear to auscultation bilaterally Cardio COMMON NORMALS: regular rate, regular rhythm, S1 normal heart sound present, S2 normal heart sound present, No gallops present (Cardio), No murmurs present (Cardio), No rub (Cardio) and Peripheral pulses 2+ throughout RATE: regular rate RHYTHM: regular rhythm HEART SOUNDS: S1 normal heart sound present and S2 normal heart sound present PERIPHERAL PULSES: Peripheral pulses 2+ throughout GI COMMON NORMALS: Soft to palpation and non-tender AUSCULTATION: Yes normoactive bowel sounds PALPATION: Yes Soft to palpation RECTAL EXAM: deferred OTHER: Surgical incision site is clean and wound is healing well Extremity COMMON NORMALS: no clubbing, cyanosis or edema and no pedal edema Urinary Catheter Management^: Kuo: Cath Placed During This Visit: yes, but has since been removed by the nurse Reason for Continuing Indwelling Catheter: Decision to DC Catheter Date Urinary Catheter Removed: 02/23/20 Time Urinary Catheter Discontinued: 13:27 Discharge Data Data Completed and Pending: Completed Studies During Hospitalization Category Date Time Status CT abdomen pelvis w con* [id number] Stat Cat Scan 02/16/20 14:56 Completed Labs from last 24 hours 02/23/20 02/23/20 02/22/20 10:40 06:17 20:18 POC Glucose 106 99 104 02/22/20 17:36 POC Glucose 91 Vitals: Last Vital Signs Temp 98.2 F 02/23/20 11:51 Pulse 83 02/23/20 11:51 Resp 18 02/23/20 11:51 BP 125/79 02/23/20 11:51 Pulse Ox 95 02/23/20 11:51 Discharge Plan Discharge Patient Disposition: Home Condition: Stable Prescriptions: New Vancocin 250 mg capsule 250 mg PO QID 9 Days Qty: 36 RF: 0 Continued pantoprazole 20 mg tablet,delayed release (DR/EC) 20 mg PO DAILY@04 RF: 0 pravastatin 10 mg tablet 10 mg PO DAILY@18 RF: 0 gabapentin 300 mg capsule 300 mg PO TID@04,, RF: 0 albuterol sulfate 90 mcg/actuation HFA aerosol inhaler 1 - 2 puff INHALATION QID PRN (Reason: Shortness Of Breath) RF: 0 metformin 500 mg tablet extended release 24 hr 500 mg PO DAILY@18 RF: 0 cholecalciferol (vitamin D3) 1,250 mcg (50,000 unit) capsule 1,250 mcg PO Q7D RF: 0 fenofibrate 54 mg tablet 54 mg PO DAILY@18 RF: 0 hydrocodone-acetaminophen 5-325 mg tablet 1 tab PO Q6H PRN (Reason: Pain) RF: 0 Probiotic 1 tab PO DAILY@0700 RF: 0 Held furosemide 40 mg tablet 40 mg PO DAILY@18 RF: 0 Hold Instructions: Resume on 03/08/20. Discontinued methylcellulose (laxative) 500 mg Tablet 500 mg PO DAILY@04 RF: 0 docusate sodium [Stool Softener] 100 mg Capsule 100 mg PO BID@ RF: 0 levofloxacin 750 mg tablet 750 mg PO DAILY@0700 RF: 0 amoxicillin-pot clavulanate 875-125 mg tablet 1 tab PO BID@ RF: 0 vancomycin 125 mg capsule 125 mg PO QID@,,, RF: 0 Discharge Orders: Discharge Order (Routine); Ordered 02/23/20 Ordered By: Isarel Vann Referrals: Cayetano Klein MD [Physician] - 03/01/20 10:45 am Henrik Stevens NP [Primary Care Provider] - 03/01/20 9:30 am Discharge Diet: Diabetic Discharge Activity: Resume usual activity Patient Instructions: Clostridium Difficile, Vancomycin (By mouth), Ventral Hernia (GEN) Discharge Attestations Time Spent in Discharge Care*: greater than 30 min Specific Discharge Activities: educating patient, educating and/or supporting family/caregiver, discussing with pcp/other providers, documenting/other paperwork and evaluating patient/reviewing data Status at Discharge: Cognitive status at discharge: cognitively intact , Behavioral status at discharge: cooperative , Functional status at discharge: independent ambulation Overall status at discharge: patient is back to baseline Quality Metrics Clinical Quality Measures During this hospital stay, did patient experience: None Coding Level of Care Code Acute Licensed Prosthetist for [facility] Fwd Diagnoses Panniculitis M79.3 Jejunitis K52.9 C. difficile diarrhea A04.72
[2020-02-23 17:49] VITALS: BP 125/79; PULSE 83; RESP 18; TEMP 36.8; O2SAT 95
== END 2020-02-23 16:45 | disposition home or self-care (01) | DRG 372 ==
LOC: ER 17:43 → MEDSURG 18:28
PROVIDERS: Hospitalist; Nurse Practitioner Family; Admitting Provider Student in an Organized Health Care Education/Training Program; Emergency Provider Family Medicine; PCP Nurse Practitioner Family; Visit Provider Internal Medicine
DX: A04.72 Enterocolitis due to Clostridium difficile, not specified as recurrent (principal); Z68.43 Body mass index [BMI] 50.0-59.9, adult; E66.01 Morbid (severe) obesity due to excess calories; K52.9 Noninfective gastroenteritis and colitis, unspecified; M79.3 Panniculitis, unspecified; D64.9 Anemia, unspecified; M19.90 Unspecified osteoarthritis, unspecified site; G89.29 Other chronic pain; M54.9 Dorsalgia, unspecified; E11.9 Type 2 diabetes mellitus without complications; Z86.718 Personal history of other venous thrombosis and embolism; Z90.49 Acquired absence of other specified parts of digestive tract; R59.0 Localized enlarged lymph nodes; Z79.891 Long term (current) use of opiate analgesic; E78.5 Hyperlipidemia, unspecified
CPT/HCPCS: 12345; 36415; 36416; 51702; 74177; 80053; 81001; 82962; 83605; 83690; 85014; 85018; 85025; 87040; 87070; 87075; 87086; 87205; 87426; 94640; 96372; 99283; J1650; J1815; J2270; J2405; J2543; J2550; J3370; J7030; J7611; Q9967

== ENCOUNTER 2020-03-07 08:20 | Outpatient (CLI) | payer OTHER, SELFPAY | END 2020-03-07 08:21 | disposition home or self-care (01) | LOC: WOUND 08:21 | PROVIDERS: PCP Nurse Practitioner Family; Visit Provider Nurse Practitioner Family | DX: I96 Gangrene, not elsewhere classified (principal); L89.313 Pressure ulcer of right buttock, stage 3; L89.892 Pressure ulcer of other site, stage 2 | CPT/HCPCS: 11042; 11045; 87070; 87077; 87176; 87186; 87205; G0463 ==

== ENCOUNTER 2020-03-14 10:30 | Outpatient (CLI) | payer OTHER, SELFPAY | END 2020-03-14 10:31 | disposition home or self-care (01) | LOC: WOUND 10:30 | PROVIDERS: PCP Nurse Practitioner Family; Visit Provider Nurse Practitioner Family | DX: I96 Gangrene, not elsewhere classified (principal); L89.313 Pressure ulcer of right buttock, stage 3; L89.892 Pressure ulcer of other site, stage 2 | CPT/HCPCS: 11042; 11045 ==

== ENCOUNTER 2020-03-21 08:21 | Outpatient (CLI) | payer OTHER, SELFPAY | END 2020-03-21 08:22 | disposition home or self-care (01) | LOC: WOUND 08:21 | PROVIDERS: PCP Nurse Practitioner Family; Visit Provider Nurse Practitioner Family | DX: I96 Gangrene, not elsewhere classified (principal); L89.313 Pressure ulcer of right buttock, stage 3; L89.892 Pressure ulcer of other site, stage 2 | CPT/HCPCS: 11042; 11045 ==

== ENCOUNTER 2020-04-07 09:30 | Outpatient (CLI) | payer OTHER, SELFPAY | END 2020-04-07 09:31 | disposition home or self-care (01) | LOC: WOUND 09:31 | PROVIDERS: PCP Nurse Practitioner Family; Visit Provider Nurse Practitioner Family | DX: I96 Gangrene, not elsewhere classified (principal); L89.313 Pressure ulcer of right buttock, stage 3; L89.892 Pressure ulcer of other site, stage 2 | CPT/HCPCS: 11042 ==

== ENCOUNTER 2020-04-11 08:09 | Outpatient (CLI) | payer OTHER, SELFPAY | END 2020-04-11 08:10 | disposition home or self-care (01) | LOC: WOUND 08:09 | PROVIDERS: PCP Nurse Practitioner Family; Visit Provider Nurse Practitioner Family | DX: I96 Gangrene, not elsewhere classified (principal); L89.313 Pressure ulcer of right buttock, stage 3 | CPT/HCPCS: 11042 ==

== ENCOUNTER 2020-04-18 08:07 | Outpatient (CLI) | payer OTHER, SELFPAY | END 2020-04-18 08:08 | disposition home or self-care (01) | LOC: WOUND 08:08 | PROVIDERS: PCP Nurse Practitioner Family; Visit Provider Nurse Practitioner Family | DX: L89.313 Pressure ulcer of right buttock, stage 3 (principal); L89.152 Pressure ulcer of sacral region, stage 2 | CPT/HCPCS: 11042 ==

== ENCOUNTER 2020-04-25 08:08 | Outpatient (CLI) | payer OTHER, SELFPAY | END 2020-04-25 08:09 | disposition home or self-care (01) | LOC: WOUND 08:08 | PROVIDERS: PCP Nurse Practitioner Family; Visit Provider Nurse Practitioner Family | DX: L89.313 Pressure ulcer of right buttock, stage 3 (principal); L89.152 Pressure ulcer of sacral region, stage 2 | CPT/HCPCS: 11042 ==

== ENCOUNTER 2020-05-02 08:06 | Outpatient (CLI) | payer OTHER, SELFPAY | END 2020-05-02 08:07 | disposition home or self-care (01) | LOC: WOUND 08:06 | PROVIDERS: PCP Nurse Practitioner Family; Visit Provider Nurse Practitioner Family | DX: L89.313 Pressure ulcer of right buttock, stage 3 (principal); L89.152 Pressure ulcer of sacral region, stage 2 | CPT/HCPCS: G0463 ==

== ENCOUNTER 2020-05-09 08:19 | Outpatient (CLI) | payer OTHER, SELFPAY | END 2020-05-09 08:20 | disposition home or self-care (01) | LOC: WOUND 08:21 | PROVIDERS: PCP Nurse Practitioner Family; Visit Provider Nurse Practitioner Family | DX: L89.152 Pressure ulcer of sacral region, stage 2 (principal); E11.622 Type 2 diabetes mellitus with other skin ulcer; L97.812 Non-pressure chronic ulcer of other part of right lower leg with fat layer exposed | CPT/HCPCS: 11042 ==

== ENCOUNTER 2020-05-11 08:07 | Outpatient (CLI) | payer OTHER, SELFPAY ==
--- NOTE | 2020-05-11 09:21 | CT_ITS ---
WS: [id number] CT pelvis TECHNIQUE: Contrast-enhanced CT of the pelvis with coronal and sagittal reformatted images. Exam is l imited due to body habitus and beam hardening artifact CLINICAL INFORMATION: RECTAL PAIN, PRESSURE ULCER R. BUTTOCK COMPARISON: CT February 16, 2020 DLP: 748.[address] scans at [facility] use at least one of these dose optimization techniques: automat ed exposure control; mA and/or kV adjustment per patient size (includes targeted exams where dose is matched to clinical indication); or iterative reconstruction. FINDINGS: Limited examination due to body habitus and beam hardening artifact. Induration with small area of ulceration involving the right gluteus. No evidence of underlying absce ss or fluid collection. Mild induration extends into the right gluteus musculature. No visualized fis tulous tract. Additional area of induration involving the left perineum along the deep gluteal cleft extending to t he anus consistent with perianal fistula. No visualized air. No evidence of drainable abscess or flui d collection. Calcified uterine fibroid. Cholelithiasis. Prior ventral abdominal wall hernia repair. Normal visualized sigmoid colon. No other significant changes from previous. CT/CT pelvis w con* [id number] IMPRESSION: 1. Small decubitus ulcer in the RIGHT paramedian gluteus and with skin thicken ing and induration. Induration and inflammatory changes extends down to the rig ht gluteus musculature. No evidence of drainable abscess or fluid collection. N o visualized fistulous tract. 2. Small LEFT perianal fistula described above. No abscess or drainable fluid collection. 3. No evidence of osteomyelitis. 4. Other significant changes from previous.
[2020-05-11] MEDS: iohexol 350 mg/mL 100 mL Btl IV (09:44)
== END 2020-05-11 08:08 | disposition home or self-care (01) ==
LOC: RADWPI 08:23
PROVIDERS: PCP Nurse Practitioner Family; Visit Provider Nurse Practitioner Family
DX: K62.89 Other specified diseases of anus and rectum (principal); L89.319 Pressure ulcer of right buttock, unspecified stage; K60.3 Anal fistula
CPT/HCPCS: 72193; Q9967

== ENCOUNTER 2020-05-16 08:16 | Outpatient (CLI) | payer OTHER, SELFPAY | END 2020-05-16 08:17 | disposition home or self-care (01) | LOC: WOUND 08:17 | PROVIDERS: PCP Nurse Practitioner Family; Visit Provider Nurse Practitioner Family | DX: L89.152 Pressure ulcer of sacral region, stage 2 (principal); E11.622 Type 2 diabetes mellitus with other skin ulcer; L97.812 Non-pressure chronic ulcer of other part of right lower leg with fat layer exposed | CPT/HCPCS: G0463 ==

== ENCOUNTER 2020-05-23 08:02 | Outpatient (CLI) | payer OTHER, SELFPAY | END 2020-05-23 08:03 | disposition home or self-care (01) | LOC: WOUND 08:03 | PROVIDERS: PCP Nurse Practitioner Family; Visit Provider Nurse Practitioner Family | DX: L89.152 Pressure ulcer of sacral region, stage 2 (principal) | CPT/HCPCS: 99212 ==

== ENCOUNTER 2020-06-06 08:15 | Outpatient (CLI) | payer OTHER, SELFPAY | END 2020-06-06 08:16 | disposition home or self-care (01) | LOC: WOUND 08:16 | PROVIDERS: PCP Nurse Practitioner Family; Visit Provider Nurse Practitioner Family | DX: L89.152 Pressure ulcer of sacral region, stage 2 (principal) | CPT/HCPCS: 11042 ==

== ENCOUNTER 2020-06-13 07:52 | Outpatient (CLI) | payer OTHER, SELFPAY | END 2020-06-13 07:53 | disposition home or self-care (01) | LOC: WOUND 07:53 | PROVIDERS: PCP Nurse Practitioner Family; Visit Provider Nurse Practitioner Family | DX: L89.152 Pressure ulcer of sacral region, stage 2 (principal) | CPT/HCPCS: 11042 ==

== ENCOUNTER 2020-06-20 08:17 | Outpatient (CLI) | payer OTHER, SELFPAY | END 2020-06-20 08:18 | disposition home or self-care (01) | LOC: WOUND 08:18 | PROVIDERS: PCP Nurse Practitioner Family; Visit Provider Nurse Practitioner Family | DX: L89.152 Pressure ulcer of sacral region, stage 2 (principal) | CPT/HCPCS: 11042 ==

== ENCOUNTER 2020-06-27 07:53 | Outpatient (CLI) | payer OTHER, SELFPAY | END 2020-06-27 07:54 | disposition home or self-care (01) | LOC: WOUND 07:54 | PROVIDERS: PCP Nurse Practitioner Family; Visit Provider Nurse Practitioner Family | DX: L89.152 Pressure ulcer of sacral region, stage 2 (principal) | CPT/HCPCS: 11042 ==

== ENCOUNTER 2020-07-18 08:02 | Outpatient (CLI) | payer OTHER, SELFPAY | END 2020-07-18 08:03 | disposition home or self-care (01) | LOC: WOUND 08:03 | PROVIDERS: PCP Nurse Practitioner Family; Visit Provider Nurse Practitioner Family | DX: L89.152 Pressure ulcer of sacral region, stage 2 (principal) | CPT/HCPCS: 11042 ==

== ENCOUNTER 2020-07-25 08:05 | Outpatient (CLI) | payer OTHER, SELFPAY | END 2020-07-25 08:06 | disposition home or self-care (01) | LOC: WOUND 08:06 | PROVIDERS: PCP Nurse Practitioner Family; Visit Provider Nurse Practitioner Family | DX: L89.152 Pressure ulcer of sacral region, stage 2 (principal) | CPT/HCPCS: 11042 ==

== ENCOUNTER 2020-08-08 08:05 | Outpatient (CLI) | payer OTHER, SELFPAY | END 2020-08-08 08:06 | disposition home or self-care (01) | LOC: WOUND 08:06 | PROVIDERS: PCP Nurse Practitioner Family; Visit Provider Nurse Practitioner Family | DX: Z09 Encounter for follow-up examination after completed treatment for conditions other than malignant neoplasm (principal) ==